=== PATIENT | male | born 1945 | race Caucasian/White ===

== ENCOUNTER → 2016-04-06 | Outpatient (CLI) | payer BC ==
[~2016-04-06] MED LIST: AMPH1TAB58 PO; ATV/1 PO; CALC500C70 PO; CRD4 PO; DTRSR/10 PO; GABA-113 PO; LEVO75TA PO; PERP1TAB PO; PERP1TAB11 PO; PRS5 PO; PXL20 PO; SIMV40TA2 PO; ZNTT/150 PO
[2016-04-06 17:23] LABS: HEMATOCRIT 35.5 % (42-52); MEAN CELL VOLUME 88.8 fL (80-100); MEAN CORPUSCULAR HEMOGLOBIN 30.3 pg (25-34); MEAN CORPUSCULAR HGB CONC 34.1 g/dl (32-36); MEAN PLATELET VOLUME 11.4 fL (7.4-10.4); PLATELET COUNT 175 K/uL (130-400); WHITE BLOOD COUNT 6.13 K/uL (4.8-10.8)
[2016-04-06 17:55] LABS: ALT/SGPT 21 U/L (12-78); AST/SGOT 15 U/L (15-37); BLOOD UREA NITROGEN 20 mg/dl (7-18); BUN/CREATININE RATIO 21.6 (10-20); CALCIUM 8.4 mg/dl (8.5-10.1); CARBON DIOXIDE 29 mmol/L (21-32); CHLORIDE 103 mmol/L (98-107); CREATININE 0.91 mg/dl (0.60-1.40); GLUCOSE 99 mg/dl (70-99); POTASSIUM 4.1 mmol/L (3.5-5.1); SODIUM 140 mmol/L (136-145)
[2016-04-06 18:06] LABS: ALB/GLOB RATIO 1.2 (0.9-2); ALKALINE PHOSPHATASE 45 U/L (45-117); CHOLESTEROL 127 mg/dl (0-200); CHOLESTEROL/HDL RATIO 2.1; HDL CHOLESTEROL 61 mg/dl; LDL CHOLESTEROL CALCULATED 51 mg/dl; PROSTATE SPECIFIC ANTIGEN 0.085 ng/ml (0.000-4.000); TRIGLYCERIDES 77 mg/dl (0-150); VERY LOW DENSITY LIPOPROT CALC 15 mg/dl
== END | disposition home or self-care (01) ==
LOC: C.LABBFT 13:35
PROVIDERS: ATTEND Internal Medicine
DX: E03.9 Hypothyroidism, unspecified (principal); I10 Essential (primary) hypertension; Z12.5 Encounter for screening for malignant neoplasm of prostate

== ENCOUNTER → 2016-09-23 | Outpatient (CLI) | payer BC ==
[2016-09-23 12:33] LABS: BASO % 0.2 %; BASO ABS # 0.01 K/uL (0-0.2); COMPLETE YES; IG% 0.2 %; LYMPH % 15.5 %; LYMPH ABS # 0.97 K/uL (1.2-3.4); MEAN CELL VOLUME 89.3 fL (80-100); MEAN CORPUSCULAR HGB CONC 34.7 g/dl (32-36); MEAN PLATELET VOLUME 10.3 fL (7.4-10.4); MONO % 14.9 %; NEUT % 68.2 %; PLATELET COUNT 196 K/uL (130-400); RED BLOOD COUNT 4.03 M/uL (4.7-6.1); WHITE BLOOD COUNT 6.26 K/uL (4.8-10.8)
[2016-09-23 12:52] LABS: ALT/SGPT 20 U/L (12-78); BLOOD UREA NITROGEN 18 mg/dl (7-18); BUN/CREATININE RATIO 21.9 (10-20); CARBON DIOXIDE 26 mmol/L (21-32); CHLORIDE 106 mmol/L (98-107); CHOLESTEROL 160 mg/dl (0-200); CREATININE 0.84 mg/dl (0.60-1.40); GLUCOSE 96 mg/dl (70-99); POTASSIUM 4.2 mmol/L (3.5-5.1); SODIUM 140 mmol/L (136-145); TRIGLYCERIDES 48 mg/dl (0-150); VERY LOW DENSITY LIPOPROT CALC 10 mg/dl
[2016-09-23 13:03] LABS: ALB/GLOB RATIO 1.1 (0.9-2); ALKALINE PHOSPHATASE 52 U/L (45-117); AST/SGOT 16 U/L (15-37); CHOLESTEROL/HDL RATIO 2.1; HDL CHOLESTEROL 75 mg/dl; LDL CHOLESTEROL CALCULATED 75 mg/dl; THYROID STIMULATING HORMONE 0.735 uIu/ml (0.300-4.500)
[2016-09-23 13:35] LABS: ESTIMATED AVERAGE GLUCOSE 105 mg/dl; HA1C FLAG Normal (Normal)
== END | disposition home or self-care (01) ==
LOC: C.LABBFT 11:00
PROVIDERS: ATTEND Internal Medicine
DX: E78.00 Pure hypercholesterolemia, unspecified (principal); E03.9 Hypothyroidism, unspecified; R73.01 Impaired fasting glucose; D72.819 Decreased white blood cell count, unspecified

== ENCOUNTER → 2017-01-08 | Outpatient (CLI) | payer BC ==
[~2017-01-08] MED LIST changes: +ASPCH81X PO; -ATV/1 PO; +CHOL100040; +FAMO20TA11 PO; +NYSTATIN SWISH; +OXYBUTYNIN CHLORIDE; -PERP1TAB11 PO; +PERP4TAB37 PO; -ZNTT/150 PO
--- NOTE | 2017-01-08 14:45 | DIAGNOSTIC IMAGING REPORT ---
LUMBAR SPINE WITHOUT CLINICAL HISTORY: 72 years-old Male presenting with LUMBAR RADICULOPATHY. TECHNIQUE: Multidetector CT of the lumbar spine was performed without the use of intravenous contrast. IV contrast: None. A dose lowering technique was used consistent with the principles of ALARA (as low as reasonably achievable). COMPARISON: None. CT DOSE (mGy.cm): The estimated cumulative dose is 626.20 mGy.cm. FINDINGS: Professor Of Art topogram: Partial visualization of 2-lead pacer to the right atrium and right ventricular apex. S-shaped scoliotic curvature of the thoracolumbar spine. Levocurvature of the lumbar spine centered at L2. Otherwise normal lumbar lordosis. Vertebral body heights and alignment otherwise maintained. Intervertebral disc height loss at multiple levels, somewhat asymmetrically given the presence of scoliotic curvature. Disc bulges with prominent osteophytosis noted at every level to varying degrees. This results in very degrees of effacement of the ventral thecal sac. Spinal stenosis is most severe at L2-3 and L3-4. Varying degrees of osseous neural foraminal narrowing. Degenerative changes further detailed below: L1-2: Severe right neural foraminal narrowing. Mild effacement of the ventral thecal sac. L2-3: Mild to moderate right neural foraminal narrowing. Circumferential effacement of the thecal sac secondary to disc bulge, ligamentum flavum thickening, and facet arthropathy. L3-4: Mild right neural foraminal narrowing. Disc bulge, facet arthropathy, and ligamentum flavum thickening result in significant circumferential effacement of the thecal sac. L4-5: Moderate left neural foraminal narrowing. Mild disc bulge, facet arthropathy, and ligamentum flavum thickening without significant effacement of the thecal sac. L5-S1: Moderate bilateral neural foraminal narrowing. Disc bulge and facet arthropathy without significant spinal canal narrowing. Paraspinal soft tissues within normal limits. Atherosclerosis noted. Osteopenia. IMPRESSION: 1. Multilevel degenerative change with varying degrees of spinal canal stenosis most severe at L2-3 and L3-4. Very degrees of neural foraminal narrowing detailed above. 2. Osteopenia. Electronically signed by: Vu Aguirre M.D. 01/08/2017 2:43 PM Dictated Date/Time: 01/08/2017 2:28 PM
== END | disposition home or self-care (01) ==
LOC: C.CTS 14:05
PROVIDERS: ATTEND Physician Assistant Medical
DX: M54.16 Radiculopathy, lumbar region (principal)

== ENCOUNTER → 2017-03-05 | Outpatient (CLI) | payer BC ==
[~2017-03-05] MED LIST changes: -AMPH1TAB58 PO; +MIRT30TA2 PO
[2017-03-05 12:39] LABS: BASO % 0.5 %; BASO ABS # 0.02 K/uL (0-0.2); EOS % 4.4 %; EOS ABS # 0.19 K/uL (0-0.5); HEMATOCRIT 39.6 % (42-52); HEMOGLOBIN 13.4 g/dL (14.0-18.0); IG# 0.01 K/uL (0.00-0.02); LYMPH % 20.7 %; LYMPH ABS # 0.89 K/uL (1.2-3.4); MEAN CELL VOLUME 90.6 fL (80-100); MEAN CORPUSCULAR HEMOGLOBIN 30.7 pg (25-34); MEAN CORPUSCULAR HGB CONC 33.8 g/dl (32-36); MEAN PLATELET VOLUME 10.5 fL (7.4-10.4); MONO % 11.2 %; MONO ABS # 0.48 K/uL (0.11-0.59); PLATELET COUNT 211 K/uL (130-400); RED CELL DISTRIBUTION WIDTH CV 13.9 % (11.5-14.5); RED CELL DISTRIBUTION WIDTH SD 45.8 fL (36.4-46.3); WHITE BLOOD COUNT 4.29 K/uL (4.8-10.8)
[2017-03-05 14:59] LABS: ALBUMIN 3.4 gm/dl (3.4-5.0); ALT/SGPT 20 U/L (12-78); AST/SGOT 14 U/L (15-37); BLOOD UREA NITROGEN 18 mg/dl (7-18); CALCIUM 8.6 mg/dl (8.5-10.1); CARBON DIOXIDE 32 mmol/L (21-32); CREATININE 0.81 mg/dl (0.60-1.40); GLUCOSE 99 mg/dl (70-99); POTASSIUM 4.1 mmol/L (3.5-5.1); SODIUM 139 mmol/L (136-145)
[2017-03-05 15:10] LABS: ALKALINE PHOSPHATASE 49 U/L (45-117); CHOLESTEROL 154 mg/dl (0-200); LDL CHOLESTEROL CALCULATED 73 mg/dl; TOTAL PROTEIN 6.9 gm/dl (6.4-8.2)
== END | disposition home or self-care (01) ==
LOC: C.LABBFT 10:04
PROVIDERS: ATTEND Internal Medicine
DX: D64.9 Anemia, unspecified (principal); E78.00 Pure hypercholesterolemia, unspecified; E03.9 Hypothyroidism, unspecified

== ENCOUNTER → 2017-04-19 | Outpatient (CLI) | payer BC | END | disposition home or self-care (01) | LOC: C.LABBFT 10:19 | PROVIDERS: ATTEND Internal Medicine | DX: E03.9 Hypothyroidism, unspecified (principal) ==

== ENCOUNTER → 2017-09-24 | Outpatient (CLI) | payer BC ==
[2017-09-24 17:46] LABS: HEMATOCRIT 38.2 % (42-52); HEMOGLOBIN 13.1 g/dL (14.0-18.0); MEAN CELL VOLUME 89.7 fL (80-100); MEAN CORPUSCULAR HEMOGLOBIN 30.8 pg (25-34); MEAN CORPUSCULAR HGB CONC 34.3 g/dl (32-36); MEAN PLATELET VOLUME 11.1 fL (7.4-10.4); PLATELET COUNT 203 K/uL (130-400); RED CELL DISTRIBUTION WIDTH CV 13.8 % (11.5-14.5); RED CELL DISTRIBUTION WIDTH SD 45.5 fL (36.4-46.3); WHITE BLOOD COUNT 5.77 K/uL (4.8-10.8)
[2017-09-24 18:08] LABS: ALBUMIN 3.4 gm/dl (3.4-5.0); ALKALINE PHOSPHATASE 55 U/L (45-117); ALT/SGPT 25 U/L (12-78); AST/SGOT 18 U/L (15-37); BLOOD UREA NITROGEN 15 mg/dl (7-18); CALCIUM 8.2 mg/dl (8.5-10.1); CARBON DIOXIDE 29 mmol/L (21-32); CHOLESTEROL 163 mg/dl (0-200); CREATININE 0.89 mg/dl (0.60-1.40); GLUCOSE 93 mg/dl (70-99); LDL CHOLESTEROL CALCULATED 66 mg/dl; POTASSIUM 4.2 mmol/L (3.5-5.1); SODIUM 138 mmol/L (136-145); TOTAL PROTEIN 6.7 gm/dl (6.4-8.2)
== END | disposition home or self-care (01) ==
LOC: C.LABBFT 14:57
PROVIDERS: ATTEND Physician Assistant Medical
DX: E78.00 Pure hypercholesterolemia, unspecified (principal); R97.20 Elevated prostate specific antigen [PSA]; I10 Essential (primary) hypertension; E03.9 Hypothyroidism, unspecified

== ENCOUNTER 2020-11-05 13:53 | Inpatient (IN) ==
--- NOTE | 2020-11-05 14:31 | Emergency Department Note ---
Impression & Plan Hypoxia, Aspiration into airway, Food impaction of esophagus ED Provider Note NAME: BEVERLY THACKER AGE: 75 SEX: M : 1945 ARRIVES VIA: Ambulance INFORMANT: Patient ED PROVIDER(S): Mo Clemente DO CHIEF COMPLAINT: choking HPI: Patient is a 75-year-old male who presents to the ER following eating a piece of pork chop at lunch. He started choking on it as he notes he took a big bite. He felt like he could not breathe. When EMS got there he was hypoxic at 83%. He was placed on 6 L nasal cannula. He did vomit a little bit. He notes he does not feel like it is stuck anymore but feels like his throat is sore. He denies any headache or change in vision. No chest pain or shortness of breath. No dysuria, urgency or frequency. No other exacerbating or remitting factors. ROS: See above HPI for pertinent positives & negatives. A total of 10 systems reviewed and were otherwise negative. PAST MEDICAL HISTORY:See Below PAST SURGICAL HISTORY:See Below FAMILY HISTORY:See Below SOCIAL HISTORY:See Below HOME MEDICATIONS:See Below ALLERGIES:See Below VITALS:See Below PHYSICAL EXAMINATION: GENERAL: Sitting up in bed, alert, chronically ill-appearing, disheveled, on nasal cannula talking in full sentences EYE EXAM: normal conjunctiva. OROPHARYNX: no exudate, no erythema, lips, buccal mucosa, and tongue normal and mucous membranes are moist NECK: supple, no nuchal rigidity, no adenopathy, non-tender LUNGS: Rhonchi bilaterally. Normal chest wall mechanics HEART: no murmurs, S1 normal and S2 normal ABDOMEN: abdomen soft, non-tender, normo-active bowel sounds, no masses, no rebound or guarding. UPPER EXTREMITIES: upper extremities are grossly normal. LOWER EXTREMITIES: No pitting edema. NEURO EXAM: Normal sensorium, cranial nerves II-XII grossly intact, normal speech, no gross weakness of arms, no gross weakness of legs. MEDICAL DECISION MAKING: Patient is a 75-year-old male who presents the ER after choking on a pork chop. IV was established blood work was obtained. He is hypoxic and was placed on 3 L nasal cannula. When he was found by EMS he was hypoxic at 83%. Labs show no significant leukocytosis and mild anemia at 12.6. BMP along with LFTs lipase and troponin were negative. Covid was negative. CT of the chest was performed and shows a food bolus although he says he does feel better. He also shows pneumonitis. He was given IV Rocephin. He was updated bedside. Discussed with Dr. Bustos who recommended discussing with Dr. Herring who was on-call for Dr. Bustos. Dr. Herring agreed to take the patient to the OR. Discussed with Dr. Hummel and Drew from the hospital service for admission due to the aspiration pneumonitis and hypoxia as he is remained on 4 L nasal cannula while in the ER. Patient was updated bedside. Triage Nursing notes reviewed. Limited review of prior medical records performed Vital Signs: reviewed and remarkable for no significant abnormalities Differential diagnosis: Differential diagnoses includes but is not limited to pneumonia, bronchitis, COPD/Asthma exacerbation, pneumothorax, pulmonary embolism, congestive heart failure, acute coronary syndrome ER treatment provided: See below Diagnostics interpreted by me: ECG: Atrial paced rate of 77 Normal axis No PVCs QTC 423 Cardiac Monitoring: An order was placed for continuous cardiac monitoring. The monitor shows a rate of 72 with sinus rhythm. Laboratory studies: As stated above and show below. Imaging studies: CTs of the chest and neck as discussed above Consultation(s): D/w GI who will take the patient to the OR for an endoscopy Discussed with the hospitalist for further admission Procedures: none Critical Care: I have personally spent 35 minutes of critical care time in the direct management of this patient. This includes bedside care, interpretation of diagnostic studies, and testing, discussion with consultants, patient, and family members, and other required patient management activities. This 35 minutes is in excess of all separately billable procedures. Past Med/Surg History Medical History Anemia ? CURRENT STATUS Anxiety Aortic aneurysm USED TO MONITOR-NOT CURRENTLY Atrial fibrillation no blood thinners---follows with Dr. Bonilla Chronic back pain CVA (cerebral vascular accident) BRAIN BLEED-2006?-affected balance, causing dizziness, poor balance, light headed---no neurologist now was following with Dr. Chavez-AND DISCHARGED-F/U PCP SPEECH IS SLOW, COMMUNICATION EFFECTIVE ; PT REPORTS SPEECH SLOW SINCE AFTER BRAIN BLEED - SPEAK LOUD AND SLOW Depression GERD (gastroesophageal reflux disease) Gout HX History of colon polyps BENIGN Hyperlipidemia Hypertension was on meds, but was taken off Hypothyroidism Spinal stenosis Surgical History History of bilateral carpal tunnel release History of colonoscopy History of elbow surgery right History of esophagogastroduodenoscopy (EGD) History of left shoulder replacement History of tooth extraction History of total left knee replacement (TKR) History of total right knee replacement (TKR) Pacemaker Biotronik 09/2015 @ [facility] - PLACED "TO KEEP ME FROM FALLING" PT REPORTS HAS HELPED Family History Brother Prostate cancer Father Myocardial infarction Family/Other Cardiac disorder Stroke Hypertension Sister Parkinson disease Other No family history of adverse response to anesthesia Denies family history of Ovarian cancer Breast cancer Colorectal cancer Social History Smoking Status: Never smoker Second Hand Exposure: No; Hx Alcohol Use: No Hx Substance Use: No Preferred Language: Sinhala Communication Ability: Effective Visual Impairment: No Limitations Hearing Ability: Normal Studio Artist Required: No Beliefs That Will Affect Care: None marital status: / Current Living Situation: Alone Current Living Situation Comment: [facility] current occupational status: retired Feels Safe at Home: Yes Dental Care, Regularly: Yes Physical Activity Frequency: Daily Seatbelt Use: always Assistive Devices: Cane Allergies Allergies Allergy/AdvReac Type Severity Reaction Status Date / Time codeine AdvReac Unknown MENTAL Verified 11/05/20 16:35 INCOHERENCE warfarin AdvReac Unknown INTERFERES Verified 11/05/20 16:35 WITH OTHER MEDS METAL Allergy Unknown SEE NOTES Uncoded 11/05/20 16:35 BELOW Opioid Analgesics AdvReac Unknown mental Uncoded 11/05/20 16:35 incoherence Home Meds Home Medications Medication Instructions Recorded Confirmed calcium carbonate 500 mg (1,250 1 tab PO QPM tab 10/15/18 11/05/20 mg)-vitamin D3 125 unit tablet cholecalciferol (vitamin D3) 25 1,000 units PO QAM cap 10/15/18 11/05/20 mcg (1,000 unit) capsule aspirin 81 mg tablet,delayed 81 mg PO QAM 10/28/18 11/05/20 release (Aspirin Low Dose) vit C 250 mg-vit E 90 mg-zinc 40 1 tab PO BID 10/28/18 11/05/20 mg-copper 1 [id number] capsule (PreserVision AREDS-2) perphenazine 4 mg tablet 8 mg PO QPM tab 09/27/19 11/05/20 famotidine 20 mg tablet 20 mg PO QAM #180 tab 01/03/20 11/05/20 levothyroxine 75 mcg tablet 75 mcg PO QAM 06/05/20 11/05/20 perphenazine 4 mg tablet 4 mg PO QAM 06/05/20 11/05/20 escitalopram oxalate 20 mg tablet 20 mg PO DAILY 11/05/20 11/05/20 Previous Rx's Medication Instructions Recorded simvastatin 40 mg tablet 40 mg PO HS #90 tab 01/15/20 finasteride 5 mg tablet 5 mg PO HS #90 tab 01/24/20 doxazosin 8 mg tablet 4 mg PO QAM #45 tab 03/18/20 oxybutynin chloride 5 mg tablet 5 mg PO BID #180 tab 08/27/20 Results & Data (ED) Vital Signs Vital Signs - 24 hr 11/05/20 13:46 11/05/20 14:25 11/05/20 14:36 Temperature 36.6 C Temperature Source Oral Pulse Rate 73 75 80 Pulse Rate [Apical] 85 Pulse Rate from SpO2 Sensor 81 Pulse Rhythm Regular Regular Pulse Rhythm [Apical] Regular Pulse Strength Normal Pulse Strength [Apical] Normal Respiratory Rate 20 20 19 Respiratory Effort / Characteristics Spontaneous Respiratory Depth Normal Respiratory Pattern Regular Blood Pressure 152/84 H 142/79 H Blood Pressure [Right Arm] 152/84 H Blood Pressure Mean 106 100 Blood Pressure Mean [Right Arm] 106 Blood Pressure Position Semi-fowlers Blood Pressure Position [Right Arm] Semi-fowlers Pulse Oximetry 94 93 91 Oxygen Delivery Method Nasal Cannula Nasal Cannula Nasal Cannula Oxygen Flow Rate 4 4 4 Sepsis Recent Fever Within 48 Hours No Sepsis New/Unexplained Change in Mental Status No Sepsis Action Taken by Nursing No Action Required Oxygen Flow Rate - Titration 4 Pulse Oximetry Post Tiitration 94 Laboratory Data Result diagrams: 11/05/20 14:43 11/05/20 14:43 Lab Results 11/05/20 11/05/20 11/05/20 Range/Units 14:43 14:43 14:43 WBC 5.29 (4.8-10.8) K/uL RBC 4.16 L (4.7-6.1) M/uL Hgb 12.6 L (14.0-18.0) g/dL POC Hgb (14.0-18.0) g/dl Hct 37.8 L (42-52) % POC Hct (42-52) % MCV 90.9 (80-100) fL MCH 30.3 (25-34) pg MCHC 33.3 (32-36) g/dL RDW Std Deviation 45.6 (36.4-46.3) fL RDW Coeff of Esteban 13.8 (11.5-14.5) % Plt Count 217 (130-400) K/uL MPV 9.9 (7.4-10.4) fL Immature Gran % (Auto) 0.2 % Neut % (Auto) 71.1 % Lymph % (Auto) 14.7 % [place] % (Auto) 11.9 % Eos % (Auto) 1.9 % Baso % (Auto) 0.2 % Neut # (Auto) 3.76 (1.4-6.5) K/uL Lymph # (Auto) 0.78 L (1.2-3.4) K/uL [place] # (Auto) 0.63 H (0.11-0.59) K/uL Eos # (Auto) 0.10 (0-0.5) K/uL Baso # (Auto) 0.01 (0-0.2) K/uL Immature Gran # (Auto) 0.01 (0.00-0.02) K/uL APTT 23.1 (21.0-31.0) Seconds PTT Ratio 0.9 POC Sodium (135-144) mmol/L Sodium 140 (136-145) mmol/L POC Potassium (3.3-5.0) mmol/L Potassium 4.0 (3.5-5.1) mmol/L POC Chloride (101-112) mmol/L Chloride 105 (98-107) mmol/L Carbon Dioxide 28 (21-32) mmol/L POC Total CO2 (24-31) mmol/L Anion Gap 7.0 (3-11) POC Anion Gap (16-25) mmol/L POC BUN (7-18) mg/dl BUN 16 (7-18) mg/dl Creatinine 0.81 (0.6-1.4) mg/dl POC Creatinine (0.6-1.3) mg/dl Est Cr Clr Drug Dosing 77.0 ml/min Est GFR ( Amer) 100.1 ml/min Est GFR (Non-Af Amer) 86.3 ml/min BUN/Creatinine Ratio 19.7 (10-20) Glucose 96 (70-99) mg/dl POC Glucose (other) (70-99) mg/dl Calcium 8.5 (8.5-10.1) mg/dl POC Ioniz Calcium Светлана (1.12-1.32) mmol/l Total Bilirubin 0.4 (0.2-1) mg/dl AST 15 (15-37) U/L ALT 20 (12-78) U/L Alkaline Phosphatase 53 (45-117) U/L Troponin I < 0.015 (0-0.045) ng/ml Total Protein 6.5 (6.4-8.2) gm/dl Albumin 3.3 L (3.4-5.0) gm/dl Globulin 3.2 (2.5-4.0) gm/dl Albumin/Globulin Ratio 1.0 (0.9-2) Lipase 132 (73-393) U/L COVID-19 Eval Order SARS-CoV-2 (PCR) (Negative) 11/05/20 11/05/20 11/05/20 Range/Units 14:55 16:54 16:54 WBC (4.8-10.8) K/uL RBC (4.7-6.1) M/uL Hgb (14.0-18.0) g/dL POC Hgb 12.2 L (14.0-18.0) g/dl Hct (42-52) % POC Hct 36 L (42-52) % MCV (80-100) fL MCH (25-34) pg MCHC (32-36) g/dL RDW Std Deviation (36.4-46.3) fL RDW Coeff of Esteban (11.5-14.5) % Plt Count (130-400) K/uL MPV (7.4-10.4) fL Immature Gran % (Auto) % Neut % (Auto) % Lymph % (Auto) % [place] % (Auto) % Eos % (Auto) % Baso % (Auto) % Neut # (Auto) (1.4-6.5) K/uL Lymph # (Auto) (1.2-3.4) K/uL [place] # (Auto) (0.11-0.59) K/uL Eos # (Auto) (0-0.5) K/uL Baso # (Auto) (0-0.2) K/uL Immature Gran # (Auto) (0.00-0.02) K/uL APTT (21.0-31.0) Seconds PTT Ratio POC Sodium 139 (135-144) mmol/L Sodium (136-145) mmol/L POC Potassium 4.0 (3.3-5.0) mmol/L Potassium (3.5-5.1) mmol/L POC Chloride 100 L (101-112) mmol/L Chloride (98-107) mmol/L Carbon Dioxide (21-32) mmol/L POC Total CO2 27 (24-31) mmol/L Anion Gap (3-11) POC Anion Gap 17.0 (16-25) mmol/L POC BUN 16 (7-18) mg/dl BUN (7-18) mg/dl Creatinine (0.6-1.4) mg/dl POC Creatinine 0.7 (0.6-1.3) mg/dl Est Cr Clr Drug Dosing ml/min Est GFR ( Amer) ml/min Est GFR (Non-Af Amer) ml/min BUN/Creatinine Ratio (10-20) Glucose (70-99) mg/dl POC Glucose (other) 97 (70-99) mg/dl Calcium (8.5-10.1) mg/dl POC Ioniz Calcium Светлана 1.16 (1.12-1.32) mmol/l Total Bilirubin (0.2-1) mg/dl AST (15-37) U/L ALT (12-78) U/L Alkaline Phosphatase (45-117) U/L Troponin I (0-0.045) ng/ml Total Protein (6.4-8.2) gm/dl Albumin (3.4-5.0) gm/dl Globulin (2.5-4.0) gm/dl Albumin/Globulin Ratio (0.9-2) Lipase (73-393) U/L COVID-19 Eval Order Covid19 at [facility] SARS-CoV-2 (PCR) NEGATIVE (Negative) Administered Medications Discontinued Medications Ceftriaxone Sodium (Rocephin) 1,000 mg in 50 mls @ 100 mls/hr IV NOW STA Stop: 11/05/20 16:57 Last Admin: 11/05/20 17:41 Dose: 100 mls/hr Documented by: [id number] Ioversol (Optiray 320 100ml) 94 ml IV ONCE ONE Stop: 11/05/20 15:44 Last Admin: 11/05/20 15:43 Dose: 94 ml Documented by: [id number] Imaging Data Radiologist's Impression: Chest CT 11/05/20 14:[address] WITH CONTRAST CT DOSE: 1113.38 mGy.cm HISTORY: Acute hypoxia with possible foreign body ingestion chocked on porrk currently hypoxic TECHNIQUE: Multiaxial CT images of the chest were performed following the IV administration of 94 cc of Optiray. A dose lowering technique was utilized adhering to the principles of ALARA. COMPARISON: CT soft tissue neck of same day, chest CT 05/27/2018 FINDINGS: Unremarkable thyroid. No adenopathy. The heart is upper limits of normal in size with trace pericardial effusion. Left subclavian pacer. Moderate coronary artery calcifications. Unchanged fusiform aneurysmal dilation of the ascending thoracic aorta, 4.4 x 4.4 cm. Mild to moderate atherosclerotic plaque without dissection. Unremarkable ulnar artery. Moderate sized left Bochdalek hernia. No pneumothorax or pleural effusion. Right greater than left basal lower lobe and right middle lobe groundglass densities. Mild right hemidiaphragmatic elevation. Calcified granuloma of the basal left lower lobe. The central airways are patent. Mild wall thickening of the distal esophagus. Debris filled upper thoracic esophagus. There are a few scattered hepatic cysts redemonstrated. Bilateral gynecomastia. Left shoulder arthroplasty. Degenerative changes of the right shoulder and spine with right shoulder joint effusion and intra-articular loose bodies. IMPRESSION: 1. Debris-filled upper thoracic esophagus suggestive of a food bolus. 2. Right greater than left bibasilar groundglass densities are compatible with a nonspecific infectious or inflammatory pneumonitis. Correlation can be made with a follow-up video swallow study to exclude aspiration pneumonitis. 3. Unchanged fusiform dilation of the ascending thoracic aorta, 4.4 cm. ACT 112: Negative or not required by law. Electronically signed by: Tye Banegas M.D. 11/05/2020 4:06 PM Chest X-Ray 11/05/20 14:25 SINGLE VIEW CHEST CLINICAL HISTORY: Atypical chest pain. FINDINGS: 2 AP, portable, upright chest radiographs are compared to study dated 10/08/2015 and correlated with chest CT dated 05/27/2018. A 2-lead cardiac pacemaker is in place and partially obscures the left upper chest. The heart is enlarged. The pulmonary vasculature is noncongested. There are scattered calcified granulomas. Scarring/atelectasis is seen at the lung bases. No airspace consolidation or large pleural effusion is identified. No pneumothorax is seen. The skeletal structures are osteopenic. There are healed right-sided rib fractures. A left shoulder arthroplasty is in place. Advanced arthritic change is seen in the right shoulder. IMPRESSION: 1. Cardiomegaly and cardiac pacemaker. There is no radiographic evidence of congestive failure. 2. No airspace consolidation or large pleural effusion is identified. ACT 112: Negative or not required by law. Electronically signed by: Lee Camacho M.D. 11/05/2020 3:[address] 11/05/20 14:25 CT soft tissue neck w con CT DOSE: CLINICAL HISTORY: Choked on pork TECHNIQUE: Helical images were acquired during intravenous administration of 94 cc of Optiray. A dose lowering technique was utilized adhering to the princip les of NAHOMI. COMPARISON STUDY: None. FINDINGS: The visualized portions of the lung apices are unremarkable. No thyroid masses are visualized. No salivary gland masses are visualized. There are no pathologically enlarged cervical lymph nodes. No necrotic nodes are evident. Isoattenuating structure with internal gas collection is seen within proximal portion of esophagus, measuring approximately 1.9 x 2.1 cm in axial image most likely representing ingested material, mass is less likely. There is no evidence of airway compromise. No mucosal space masses are visualized. IMPRESSION: Focal area of isoattenuating collection within proximal aspect of esophagus most likely representing ingested material. Neoplastic process is less likely. Further evaluation with direct inspection is suggested. ACT 112: Negative or not required by law. The above report was generated using voice recognition software. It may contain grammatical, syntax or spelling errors. Electronically signed by: Bri Cotter DO 11/05/2020 4:18 PM Discharge Plan Visit Data Chief Complaint: Choking ED Provider: Mo Clemente Discharge Problem: Hypoxia, Aspiration into airway, Food impaction of esophagus Forms Stand Alone Forms: [place] [place] [employer] Prescriptions Prescriptions: No Action simvastatin 40 mg tablet 40 mg PO HS Qty: 90 RF: 3 finasteride 5 mg tablet 5 mg PO HS Qty: 90 RF: 3 doxazosin 8 mg tablet 4 mg PO QAM Qty: 45 RF: 3 oxybutynin chloride 5 mg tablet 5 mg PO BID Qty: 180 RF: 3 calcium carbonate-vitamin D3 500 mg(1,250mg) -125 unit tablet 1 tab PO QPM RF: 0 cholecalciferol (vitamin D3) 1,000 unit capsule 1,000 units PO QAM RF: 0 famotidine 20 mg tablet 20 mg PO QAM Qty: 180 RF: 0 perphenazine 4 mg tablet 8 mg PO QPM RF: 0 aspirin [Aspirin Low Dose] 81 mg Tablet,Delayed Release (Dr/Ec) 81 mg PO QAM RF: 0 PreserVision AREDS-2 [id number] Capsule 1 tab PO BID RF: 0 perphenazine 4 mg Tablet 4 mg PO QAM RF: 0 levothyroxine 75 mcg tablet 75 mcg PO QAM RF: 0 escitalopram oxalate 20 mg tablet 20 mg PO DAILY RF: 0 Referrals Referrals: Timo Chopra III, MD [Primary Care Provider] - Discharge Problem: Aspiration into airway Qualifiers: Encounter type: initial encounter Qualified Code(s): T17.908A - Unspecified foreign body in respiratory tract, part unspecified causing other injury, initial encounter Food impaction of esophagus Qualifiers: Encounter type: initial encounter Qualified Code(s): T18.128A - Food in esophagus causing other injury, initial encounter
[2020-11-05 14:55] LABS: Basophils # (auto) 0.01 K/uL (0-0.2); Basophils % (auto) 0.2 %; Eosinophils % (auto) 1.9 %; Hematocrit (blood only) 37.8 % (42-52); Hemoglobin 12.6 g/dL (14.0-18.0); Immature Granulocytes # (auto) 0.01 K/uL (0.00-0.02); Immature Granulocytes % (auto) 0.2 %; Lymphocytes # (auto) 0.78 K/uL (1.2-3.4); Lymphocytes % (auto) 14.7 %; Mean Corpuscular Hemoglobin 30.3 pg (25-34); Mean Corpuscular Hgb Conc 33.3 g/dL (32-36); Mean Corpuscular Volume 90.9 fL (80-100); Mean Platelet Volume 9.9 fL (7.4-10.4); Monocytes # (auto) 0.63 K/uL (0.11-0.59); Monocytes % (auto) 11.9 %; Neutrophils # (auto) 3.76 K/uL (1.4-6.5); Neutrophils % (auto) 71.1 %; Platelet Count 217 K/uL (130-400); RDW Coefficient of Variation 13.8 % (11.5-14.5); RDW Standard Deviation 45.6 fL (36.4-46.3); Red Blood Count 4.16 M/uL (4.7-6.1); White Blood Count 5.29 K/uL (4.8-10.8)
[2020-11-05 15:02] LABS: Partial Thromboplastin Ratio 0.9; Partial Thromboplastin Time 23.1 Seconds (21.0-31.0)
[2020-11-05 15:10] LABS: iSTAT Creatinine 0.7 mg/dl (0.6-1.3); iSTAT Hemoglobin 12.2 g/dl (14.0-18.0); iSTAT Ionized Calcium 1.16 mmol/l (1.12-1.32)
[2020-11-05 15:16] LABS: Alanine Aminotransferase 20 U/L (12-78); Albumin Level 3.3 gm/dl (3.4-5.0); Aspartate Aminotransferase 15 U/L (15-37); BUN Creatinine Ratio 19.7 (10-20); Blood Urea Nitrogen 16 mg/dl (7-18); Calcium 8.5 mg/dl (8.5-10.1); Carbon Dioxide 28 mmol/L (21-32); Chloride 105 mmol/L (98-107); Est GFR (African American) 100.1 ml/min; Est GFR (Non-African American) 86.3 ml/min; Glucose 96 mg/dl (70-99); Lipase 132 U/L (73-393); Sodium 140 mmol/L (136-145)
[2020-11-05 15:21] LABS: Alkaline Phosphatase 53 U/L (45-117); Bilirubin,Total 0.4 mg/dl (0.2-1); Globulin 3.2 gm/dl (2.5-4.0); Total Protein 6.5 gm/dl (6.4-8.2); Troponin I < 0.015 ng/ml (0-0.045)
--- NOTE | 2020-11-05 15:38 | XRay Report ---
SINGLE VIEW CHEST CLINICAL HISTORY: Atypical chest pain. FINDINGS: 2 AP, portable, upright chest radiographs are compared to study dated 10/08/2015 and correlat ed with chest CT dated 05/27/2018. A 2-lead cardiac pacemaker is in place and partially obscures the l eft upper chest. The heart is enlarged. The pulmonary vasculature is noncongested. There are scattere d calcified granulomas. Scarring/atelectasis is seen at the lung bases. No airspace consolidation or large pleural effusion is identified. No pneumothorax is seen. The skeletal structures are osteopenic . There are healed right-sided rib fractures. A left shoulder arthroplasty is in place. Advanced arth ritic change is seen in the right shoulder. IMPRESSION: 1. Cardiomegaly and cardiac pacemaker. There is no radiographic evidence of congestive failure. 2. No airspace consolidation or large pleural effusion is identified. ACT 112: Negative or not required by law. Electronically signed by: Lee Camacho M.D. 11/05/2020 3:36 PM
[2020-11-05] MEDS ORDERED: OPTIRAY 320 100ml IV ONE (15:43)
--- NOTE | 2020-11-05 16:08 | CT Scan Report ---
CHEST CT WITH CONTRAST CT DOSE: 1113.38 mGy.cm HISTORY: Acute hypoxia with possible foreign body ingestion chocked on porrk currently hypoxic TECHNIQUE: Multiaxial CT images of the chest were performed following the IV administration of 94 cc of Optiray. A dose lowering technique was utilized adhering to the principles of ALARA. COMPARISON: CT soft tissue neck of same day, chest CT 05/27/2018 FINDINGS: Unremarkable thyroid. No adenopathy. The heart is upper limits of normal in size with trace pericardial effusion. Left subclavian pacer. Moderate coronary artery calcifications. Unchanged fusi form aneurysmal dilation of the ascending thoracic aorta, 4.4 x 4.4 cm. Mild to moderate atherosclero tic plaque without dissection. Unremarkable ulnar artery. Moderate sized left Bochdalek hernia. No pneumothorax or pleural effusion. Right greater than left ba dani lower lobe and right middle lobe groundglass densities. Mild right hemidiaphragmatic elevation. C alcified granuloma of the basal left lower lobe. The central airways are patent. Mild wall thickening of the distal esophagus. Debris filled upper thoracic esophagus. There are a few scattered hepatic cysts redemonstrated. Bilateral gynecomastia. Left shoulder arthroplasty. Degenera tive changes of the right shoulder and spine with right shoulder joint effusion and intra-articular l oose bodies. IMPRESSION: 1. Debris-filled upper thoracic esophagus suggestive of a food bolus. 2. Right greater than left bibasilar groundglass densities are compatible with a nonspecific infectio us or inflammatory pneumonitis. Correlation can be made with a follow-up video swallow study to exclu de aspiration pneumonitis. 3. Unchanged fusiform dilation of the ascending thoracic aorta, 4.4 cm. ACT 112: Negative or not required by law. Electronically signed by: Tye Banegas M.D. 11/05/2020 4:06 PM
--- NOTE | 2020-11-05 16:20 | CT Scan Report ---
CT soft tissue neck w con CT DOSE: CLINICAL HISTORY: Choked on pork TECHNIQUE: Helical images were acquired during intravenous administration of 94 cc of Optiray. A dos e lowering technique was utilized adhering to the principles of ALARA. COMPARISON STUDY: None. FINDINGS: The visualized portions of the lung apices are unremarkable. No thyroid masses are visualized. No salivary gland masses are visualized. There are no pathologically enlarged cervical lymph nodes. No necrotic nodes are evident. Isoattenuating structure with internal gas collection is seen within proximal portion of esophagus, m easuring approximately 1.9 x 2.1 cm in axial image most likely representing ingested material, mass i s less likely. There is no evidence of airway compromise. No mucosal space masses are visualized. IMPRESSION: Focal area of isoattenuating collection within proximal aspect of esophagus most likely representing ingested material. Neoplastic process is less likely. Further evaluation with direct inspection is jacobs ggested. ACT 112: Negative or not required by law. The above report was generated using voice recognition software. It may contain grammatical, syntax o r spelling errors. Electronically signed by: Bri Cotter DO 11/05/2020 4:18 PM
[2020-11-05] MEDS ORDERED: cefTRIAXone SODIUM 1,000 MG/50 ML BAG IV STA (16:28)
--- NOTE | 2020-11-05 16:55 | History & Physical Report ---
Date of Service November 05, 2020 Assessment & Plan (1) Aspiration into airway: Plan: GI consulted- appreciate assistance - To OR for EGD - TO PCU following procedure - Pulmonary toileting with nebs scheduled q6 and flutter valve - received 1gm Rocephin in EMD- defer to rounding team for continuation - follow labs and oxygenation status in the morning (2) SSS (sick sinus syndrome): Plan: With pacemaker for symptomatic bradycardia - reportedly also had history of paroxysmal atrial arrhythmias - Dual chamber 10/29/15 - DDDR low rate 70, upper rate 120 - evaluated in June (3) Anemia: Plan: chronically mild anemia - conlonscopy up to date - follows with PCP with routine labs (4) Hypercholesteremia: Plan: Continue simvastatin 40mg daily (5) Hypothyroidism: Plan: Continue synthroid 75mcg PO daily (6) Aortic aneurysm: Plan: Stable non-dedicated study today measures it at 4.4cm- previously noted at 4.5 cm 2013 - continue BP control and statin - he has declined routine following of this per PCP notes (7) Hypertension: Plan: Goal would be ideal <130, likely not on agent secondary to dizziness and low HR - treat if acutely rises while in house, otherwise continue to follow with PCP (8) Disorder of urinary system, unspecified: Plan: has LUTS but no urology following - urgency and frequency noted, feels stream is adequate - continue doxazosin, oxybutynin, finasteride History of Present Illness Chief Complaint: choking Primary Care Provider: Timo Chopra MD 75 YOM resident of the [facility], with a past medical history of: Anemia, HLD, Hypothyroidism, aortic aneurysm4.5 cm(last visualized 2013), HTN, d ementia, pacemaker secondary to symptomatic bradycardia, hemorrhagic CVA. Patient came to the EMD today via EMS following choking on a pork chop he was having for lunch. The patient feels that he took to big of a bite and it was dry, but he was able to get it up with vomiting. He was noted to be hypoxic on arrival of EMS and remains on 2-3LNC for SPO2 of 98% as of current. In the EMD the patient had a CT scan of the neck and chest performed as well as CXR. CT of the chest reveals debris filled upper thoracic esophagus consistent with food bolus and post aspiration pneumonitis bi-basilar but Rt>LT. GI consulted while in the EMD for food bolus, plan is to take him to the OR for EGD support. Patient will be admitted following this procedure as he is hypoxic off oxygen and will continue treatment for aspiration pneumonitis. His routine laboratory work is normal with exception of mild anemia of 12.6. Patient states he otherwise feels well. Allergies Allergy/AdvReac Type Severity Reaction Status Date / Time codeine AdvReac Mild MENTAL Verified 11/05/20 18:56 INCOHERENCE hydrocodone AdvReac Mild CONFUSION,I Verified 11/05/20 18:56 NCOHERENCE warfarin AdvReac Mild INTERFERES Verified 11/05/20 18:56 WITH OTHER MEDS oxycodone AdvReac CONFUSION,I Verified 11/05/20 18:56 NCOHERENCE Home Medications Medication Instructions Recorded Confirmed Type calcium carbonate 500 mg (1,250 1 tab PO QPM tab 10/15/18 11/05/20 History mg)-vitamin D3 125 unit tablet cholecalciferol (vitamin D3) 25 1,000 units PO QAM cap 10/15/18 11/05/20 History mcg (1,000 unit) capsule aspirin 81 mg tablet,delayed 81 mg PO QAM 10/28/18 11/05/20 History release (Aspirin Low Dose) vit C 250 mg-vit E 90 mg-zinc 40 1 tab PO BID 10/28/18 11/05/20 History mg-copper 1 [id number] capsule (PreserVision AREDS-2) perphenazine 4 mg tablet 8 mg PO QPM tab 09/27/19 11/05/20 History famotidine 20 mg tablet 20 mg PO QAM #180 tab 01/03/20 11/05/20 History simvastatin 40 mg tablet 40 mg PO HS #90 tab 01/15/20 11/05/20 Rx finasteride 5 mg tablet 5 mg PO HS #90 tab 01/24/20 11/05/20 Rx doxazosin 8 mg tablet 4 mg PO QAM #45 tab 03/18/20 11/05/20 Rx levothyroxine 75 mcg tablet 75 mcg PO QAM 06/05/20 11/05/20 History perphenazine 4 mg tablet 4 mg PO QAM 06/05/20 11/05/20 History oxybutynin chloride 5 mg tablet 5 mg PO BID #180 tab 08/27/20 11/05/20 Rx escitalopram oxalate 20 mg tablet 20 mg PO DAILY 11/05/20 11/05/20 History Past Med/Surg History Medical History Anemia ? CURRENT STATUS Anxiety Aortic aneurysm USED TO MONITOR-NOT CURRENTLY Atrial fibrillation no blood thinners---follows with Dr. Bonilla Chronic back pain CVA (cerebral vascular accident) BRAIN BLEED-2006?-affected balance, causing dizziness, poor balance, light headed---no neurologist now was following with Dr. Chavez-AND DISCHARGED-F/U PCP SPEECH IS SLOW, COMMUNICATION EFFECTIVE ; PT REPORTS SPEECH SLOW SINCE AFTER BRAIN BLEED - SPEAK LOUD AND SLOW Depression GERD (gastroesophageal reflux disease) Gout HX History of colon polyps BENIGN Hyperlipidemia Hypertension was on meds, but was taken off Hypothyroidism Spinal stenosis Surgical History History of bilateral carpal tunnel release History of colonoscopy History of elbow surgery right History of esophagogastroduodenoscopy (EGD) History of left shoulder replacement History of tooth extraction History of total left knee replacement (TKR) History of total right knee replacement (TKR) Pacemaker Biotronik 09/2015 @ [facility] - PLACED "TO KEEP ME FROM FALLING" PT REPORTS HAS HELPED Family History Brother Prostate cancer Father Myocardial infarction Family/Other Cardiac disorder Stroke Hypertension Sister Parkinson disease Other No family history of adverse response to anesthesia Denies family history of Ovarian cancer Breast cancer Colorectal cancer Social History Smoking Status: Never smoker Second Hand Exposure: No; Hx Alcohol Use: No Hx Substance Use: No Preferred Language: Lithuanian Communication Ability: Effective Visual Impairment: No Limitations Hearing Ability: Normal Custom 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 Beliefs That Will Affect Care: None marital status: / Current Living Situation: Alone Current Living Situation Comment: [facility] [facility] current occupational status: retired Feels Safe at Home: Yes Dental Care, Regularly: Yes Physical Activity Frequency: Daily Seatbelt Use: always Assistive Devices: Cane Review of Systems Review of Systems: REVIEW OF SYSTEMS: Constitutional: No fever, sweats or chills Eyes: No diplopia, no worsening or blurred vision ENT: normal hearing, no trouble swallowing Respiratory: No cough, sputum, dyspnea at rest or on exertion Cardiovascular: No chest pain, tightness or palpitations Abdomen: (+) as per HPI following choking eppisode, NO pain, nausea, vomiting, diarrhea or constipation Musculoskeletal: (+) No joint pain, calf pain, swelling Neurologic: (+) weakness, walks with cane NO numbness/tingling Psychiatric: No anxiety or depression Skin: No rash or itch Physical Exam Physical Exam: PHYSICAL EXAM: General: awake, alert, no apparent distress Head: Normocephalic, atraumatic ENT: PERRL, EOMI, no pharyngeal exudate, mucous membranes moist, throat is sore, no stridor Neuro: AAO x 3, speech clear and appropriate, strength intact bilaterally 5/5, sensation intact and equal all extremities and dermatomes, no pronator drift Chest: equal rise and fall of the chest, no accessory muscle use, no heaves or thrills, scattered rhonchi bilaterally with inspiratory wheeze, on 2lNC, Cardiac: Regular rate and rhythm, telemetry reviewed-atrial paced, skin warm dry, cap refill <3 seconds, peripheral pulses +2 no JVD, no murmur, no edema GI: NABS x 4 quadrants, soft, nontender to palpation, no rebound, guarding or tenderness : Spontaneously voiding, no pain, no CVA tenderness, Extremities: Normal inspection, no peripheral edema or erythema, calfs nontender to palpation Psych: Normal mood and affect Skin: no rash or erythema Results & Data Results & Data ([facility]) Vital Signs (Past 12 Hours) Vital Signs Temp Pulse Pulse Resp BP BP Pulse Ox 11/05/20 14:25 75 20 93 11/05/20 13:46 36.6 C 73 85 20 152/84 H 152/84 H 94 Laboratory Results Abnormal Labs 11/05/20 11/05/20 11/05/20 14:43 14:43 14:55 RBC 4.16 L Hgb 12.6 L POC Hgb 12.2 L Hct 37.8 L POC Hct 36 L Lymph # (Auto) 0.78 L [place] # (Auto) 0.63 H POC Chloride 100 L Albumin 3.3 L Diagnostic Findings Chest CT 11/05/20 14:[address] WITH CONTRAST CT DOSE: 1113.38 mGy.cm HISTORY: Acute hypoxia with possible foreign body ingestion chocked on porrk currently hypoxic TECHNIQUE: Multiaxial CT images of the chest were performed following the IV administration of 94 cc of Optiray. A dose lowering technique was utilized adhering to the principles of ALARA. COMPARISON: CT soft tissue neck of same day, chest CT 05/27/2018 FINDINGS: Unremarkable thyroid. No adenopathy. The heart is upper limits of normal in size with trace pericardial effusion. Left subclavian pacer. Moderate coronary artery calcifications. Unchanged fusiform aneurysmal dilation of the ascending thoracic aorta, 4.4 x 4.4 cm. Mild to moderate atherosclerotic plaque without dissection. Unremarkable ulnar artery. Moderate sized left Bochdalek hernia. No pneumothorax or pleural effusion. Right greater than left basal lower lobe and right middle lobe groundglass densities. Mild right hemidiaphragmatic elevation. Calcified granuloma of the basal left lower lobe. The central airways are patent. Mild wall thickening of the distal esophagus. Debris filled upper thoracic esophagus. There are a few scattered hepatic cysts redemonstrated. Bilateral gynecomastia. Left shoulder arthroplasty. Degenerative changes of the right shoulder and spine with right shoulder joint effusion and intra-articular loose bodies. IMPRESSION: 1. Debris-filled upper thoracic esophagus suggestive of a food bolus. 2. Right greater than left bibasilar groundglass densities are compatible with a nonspecific infectious or inflammatory pneumonitis. Correlation can be made with a follow-up video swallow study to exclude aspiration pneumonitis. 3. Unchanged fusiform dilation of the ascending thoracic aorta, 4.4 cm. ACT 112: Negative or not required by law. Electronically signed by: Tye Banegas M.D. 11/05/2020 4:06 PM Chest X-Ray 11/05/20 14:25 SINGLE VIEW CHEST CLINICAL HISTORY: Atypical chest pain. FINDINGS: 2 AP, portable, upright chest radiographs are compared to study dated 10/08/2015 and correlated with chest CT dated 05/27/2018. A 2-lead cardiac pacemaker is in place and partially obscures the left upper chest. The heart is enlarged. The pulmonary vasculature is noncongested. There are scattered calcified granulomas. Scarring/atelectasis is seen at the lung bases. No airspace consolidation or large pleural effusion is identified. No pneumothorax is seen. The skeletal structures are osteopenic. There are healed right-sided rib fractures. A left shoulder arthroplasty is in place. Advanced arthritic c hange is seen in the right shoulder. IMPRESSION: 1. Cardiomegaly and cardiac pacemaker. There is no radiographic evidence of congestive failure. 2. No airspace consolidation or large pleural effusion is identified. ACT 112: Negative or not required by law. Electronically signed by: Lee Camacho M.D. 11/05/2020 3:[address] 11/05/20 14:25 CT soft tissue neck w con CT DOSE: CLINICAL HISTORY: Choked on pork TECHNIQUE: Helical images were acquired during intravenous administration of 94 cc of Optiray. A dose lowering technique was utilized adhering to the principles of ALARA. COMPARISON STUDY: None. FINDINGS: The visualized portions of the lung apices are unremarkable. No thyroid masses are visualized. No salivary gland masses are visualized. There are no pathologically enlarged cervical lymph nodes. No necrotic nodes are evident. Isoattenuating structure with internal gas collection is seen within proximal portion of esophagus, measuring approximately 1.9 x 2.1 cm in axial image most likely representing ingested material, mass is less likely. There is no evidence of airway compromise. No mucosal space masses are visualized. IMPRESSION: Focal area of isoattenuating collection within proximal aspect of esophagus most likely representing ingested material. Neoplastic process is less likely. Further evaluation with direct inspection is suggested. ACT 112: Negative or not required by law. The above report was generated using voice recognition software. It may contain grammatical, syntax or spelling errors. Electronically signed by: Bri Cotter DO 11/05/2020 4:18 PM Medications Administered Discontinued Medications Ioversol (Optiray 320 100ml) 94 ml IV ONCE ONE Stop: 11/05/20 15:44 Last Admin: 11/05/20 15:43 Dose: 94 ml Documented by: [id number] Home Medications calcium carbonate 500 mg (1,250 mg)-vitamin D3 125 unit tablet 1 tab PO QPM tab 10/15/18 [History Confirmed 11/05/20] cholecalciferol (vitamin D3) 25 mcg (1,000 unit) capsule 1,000 units PO QAM cap 10/15/18 [History Confirmed 11/05/20] aspirin 81 mg tablet,delayed release (Aspirin Low Dose) 81 mg PO QAM 10/28/18 [History Confirmed 11/05/20] vit C 250 mg-vit E 90 mg-zinc 40 mg-copper 1 [id number] capsule (PreserVision AREDS-2) 1 tab PO BID 10/28/18 [History Confirmed 11/05/20] perphenazine 4 mg tablet 8 mg PO QPM tab 09/27/19 [History Confirmed 11/05/20] famotidine 20 mg tablet 20 mg PO QAM #180 tab 01/03/20 [History Confirmed 11/05/20] simvastatin 40 mg tablet 40 mg PO HS #90 tab 01/15/20 [Rx Confirmed 11/05/20] finasteride 5 mg tablet 5 mg PO HS #90 tab 01/24/20 [Rx Confirmed 11/05/20] doxazosin 8 mg tablet 4 mg PO QAM #45 tab 03/18/20 [Rx Confirmed 11/05/20] levothyroxine 75 mcg tablet 75 mcg PO QAM 06/05/20 [History Confirmed 11/05/20] perphenazine 4 mg tablet 4 mg PO QAM 06/05/20 [History Confirmed 11/05/20] oxybutynin chloride 5 mg tablet 5 mg PO BID #180 tab 08/27/20 [Rx Confirmed 11/05/20] escitalopram oxalate 20 mg tablet 20 mg PO DAILY 11/05/20 [History Confirmed 11/05/20] ECG Additional Comments: Atrial-paced rhythm with prolonged AV conduction Cannot rule out Anterior infarct , age undetermined Abnormal ECG When compared with ECG of 29-OCT-2015 16:49, Minimal criteria for Anterior infarct are now Present Code Status & VTE Plan Code Status CODE: FULL VTE: SCD's, Lovenox 40 sub q daily Supervising Physician Co-Signing Physician Notes During face to face encounter with patient, obtained a physical and history. My history and physcial examination did not differ from above. I reviewed above note and agree with it. I discussed plan with DEVAUGHN Hodge and the patient. Patient will be admitted for dysphagia and will be going to the OR for an endosocpy to remove any food devris in the esophagus. PG Care Time/CCT Total # of Minutes Spent Total Time Spent with Patient: Total time spent is greater than 50% in coordination of care (as documented) at patient's floor/unit and/or counseling patient: Coding Level of Care Code 72571 Initial Inpt Care Lvl 3 Diagnoses Aspiration into airway T17.908A SSS (sick sinus syndrome) I49.5 Anemia D64.9 Hypercholesteremia E78.00 Hypothyroidism E03.9 Aortic aneurysm I71.9 Hypertension I10 Hypertension type: essential hypertension Disorder of urinary system, unspecified N39.9 (1) Hypertension Hypertension type: essential hypertension Qualified Code(s): I10 - Essential (primary) hypertension
--- NOTE | 2020-11-05 17:23 | Gastrointestinal Consultation ---
Date of Consultation November 05, 2020 Assessment & Plan (1) Dysphagia: (2) Abnormal CT scan, esophagus: (3) Odynophagia: food bolus confirmed on CT with hypoxia on 4L o2. Recs: NPO EGD emergently in the OR to remove obstruction supportive care, IVFs admit to medicine for observation overnight Thank you for allowing me to participate in the care of this patient History of Present Illness History of Present Illness 75 yo male here with hx CVA here with food bolus. He says earlier today in the afternoon he had pork chops for lunch. He had about three bites of it then started choking. Currently having odynophagia and feels food stuck in his throat around his braga apple. He also is having dyspnea and was hypoxic, had to be placed on supplemental oxygen 4L. Having difficulty swallowing his secretions currently. CT soft tissue neck shows food lodged in proximal esophagus. He ate around 1230 pm. covid test is pending. He says this has happened before 1-2 years ago, did not have an EGD at that time although he has had an EGD in the past. labs reviewed. Allergies Allergy/AdvReac Type Severity Reaction Status Date / Time codeine AdvReac Unknown MENTAL Verified 11/05/20 16:35 INCOHERENCE warfarin AdvReac Unknown INTERFERES Verified 11/05/20 16:35 WITH OTHER MEDS METAL Allergy Unknown SEE NOTES Uncoded 11/05/20 16:35 BELOW Opioid Analgesics AdvReac Unknown mental Uncoded 11/05/20 16:35 incoherence Home Medications Medication Instructions Recorded Confirmed Type calcium carbonate 500 mg (1,250 1 tab PO QPM tab 10/15/18 11/05/20 History mg)-vitamin D3 125 unit tablet cholecalciferol (vitamin D3) 25 1,000 units PO QAM cap 10/15/18 11/05/20 History mcg (1,000 unit) capsule aspirin 81 mg tablet,delayed 81 mg PO QAM 10/28/18 11/05/20 History release (Aspirin Low Dose) vit C 250 mg-vit E 90 mg-zinc 40 1 tab PO BID 10/28/18 11/05/20 History mg-copper 1 [id number] capsule (PreserVision AREDS-2) perphenazine 4 mg tablet 8 mg PO QPM tab 09/27/19 11/05/20 History famotidine 20 mg tablet 20 mg PO QAM #180 tab 01/03/20 11/05/20 History simvastatin 40 mg tablet 40 mg PO HS #90 tab 01/15/20 11/05/20 Rx finasteride 5 mg tablet 5 mg PO HS #90 tab 01/24/20 11/05/20 Rx doxazosin 8 mg tablet 4 mg PO QAM #45 tab 03/18/20 11/05/20 Rx levothyroxine 75 mcg tablet 75 mcg PO QAM 06/05/20 11/05/20 History perphenazine 4 mg tablet 4 mg PO QAM 06/05/20 11/05/20 History oxybutynin chloride 5 mg tablet 5 mg PO BID #180 tab 08/27/20 11/05/20 Rx escitalopram oxalate 20 mg tablet 20 mg PO DAILY 11/05/20 11/05/20 History Patient History Medical History Anemia ? CURRENT STATUS Anxiety Aortic aneurysm USED TO MONITOR-NOT CURRENTLY Atrial fibrillation no blood thinners---follows with Dr. Bonilla Chronic back pain CVA (cerebral vascular accident) BRAIN BLEED-2006?-affected balance, causing dizziness, poor balance, light headed---no neurologist now was following with Dr. Chavez-AND DISCHARGED-F/U PCP SPEECH IS SLOW, COMMUNICATION EFFECTIVE ; PT REPORTS SPEECH SLOW SINCE AFTER BRAIN BLEED - SPEAK LOUD AND SLOW Depression GERD (gastroesophageal reflux disease) Gout HX History of colon polyps BENIGN Hyperlipidemia Hypertension was on meds, but was taken off Hypothyroidism Spinal stenosis Surgical History History of bilateral carpal tunnel release History of colonoscopy History of elbow surgery right History of esophagogastroduodenoscopy (EGD) History of left shoulder replacement History of tooth extraction History of total left knee replacement (TKR) History of total right knee replacement (TKR) Pacemaker Biotronik 09/2015 @ [facility] - PLACED "TO KEEP ME FROM FALLING" PT REPORTS HAS HELPED Family History Brother Prostate cancer Father Myocardial infarction Family/Other Cardiac disorder Stroke Hypertension Sister Parkinson disease Other No family history of adverse response to anesthesia Denies family history of Ovarian cancer Breast cancer Colorectal cancer Social History Smoking Status: Never smoker Second Hand Exposure: No; Hx Alcohol Use: No Hx Substance Use: No Preferred Language: Lao Communication Ability: Effective Visual Impairment: No Limitations Hearing Ability: Normal Windows Desktop Support Required: No Beliefs That Will Affect Care: None marital status: / Current Living Situation: Alone Current Living Situation Comment: [facility] current occupational status: retired Feels Safe at Home: Yes Dental Care, Regularly: Yes Physical Activity Frequency: Daily Seatbelt Use: always Assistive Devices: Cane Review of Systems Constitutional: no fever, no chills and no weight loss Eyes: as per Subjective / HPI Ear, Nose, Mouth, Throat: as per Subjective / HPI Respiratory: no dyspnea and no dyspnea on exertion Cardiovascular: no chest pain and no palpitations Gastrointestinal: as per Subjective / HPI Musculoskeletal: no joint pain and no swelling Integumentary: no rash and no lesions Neurologic: no numbness and no paresthesia Psychiatric: no depression and no anxiety Endocrine: no fatigue Hematologic / Lymphatic: no easy bleeding and no easy bruising Physical Exam Constitutional: WD/WN, vitals as above Eyes: EOM intact bilaterally Neck: normal visual inspection Respiratory: normal respiratory effort, lungs clear to auscultation Cardiovascular: RRR, no murmur, no edema Gastrointestinal (Abdomen): Inspection/Auscultation: abdomen normal to inspection; abdomen not distended Percussion/Palpation: abdomen soft; abdomen nontender and no hepatosplenomegaly Musculoskeletal: Extremities: no cyanosis Gait: normal gait Skin: no rashes, warm and dry Neurologic: moves all extremities Psychiatric: A+Ox3, euthymic affect Results & Data ([facility]) Vital Signs (Past 12 Hours) Vital Signs Temp Pulse Pulse Resp BP BP Pulse Ox 11/05/20 14:25 75 20 93 11/05/20 13:46 36.6 C 73 85 20 152/84 H 152/84 H 94 PG Care Time/CCT Total # of Minutes Spent Total Time Spent with Patient: Total time spent is greater than 50% in coordination of care (as documented) at patient's floor/unit and/or counseling patient: Coding Level of Care Code 40904 Office/OBS Consult Lvl 4 Diagnoses Dysphagia R13.[address] scan, esophagus R93.3 Odynophagia R13.10
[2020-11-05] MEDS ORDERED: LACTATED RINGER'S 1,000 ML IV ONE (17:25)
[2020-11-05] MEDS ORDERED: ONDANSETRON INJ 2 MG/ML 2 ML VIAL ONE (17:49)
[2020-11-05] MEDS ORDERED: LIDOCAINE 2% 2 ML VIAL/AMP(20MG/ML) INFIL ONE (17:49)
[2020-11-05] MEDS ORDERED: DEXAMETHASONE SOD INJ 4 MG/ML VIAL ONE (17:49)
[2020-11-05] MEDS ORDERED: PROPOFOL IV EMULSION 10 MG/ML 20 ML VIAL IV ONE (17:49)
--- NOTE | 2020-11-05 17:50 | Anesthesiology Consultation ---
Date of Service November 05, 2020 Assessment & Plan (1) Encounter for pre-operative examination: Chart Review Chart Review: Acceptable Risk for Surgery (urgent) History Surgery Operation Date: 11/05/20 11:45 Proposed Procedures p Esophagogastroduodenoscopy - Tiago Herring MD Height/Weight Height: 5 ft 6 in Weight: 79.7 kg Allergies Allergy/AdvReac Type Severity Reaction Status Date / Time codeine AdvReac Unknown MENTAL Verified 11/05/20 16:35 INCOHERENCE warfarin AdvReac Unknown INTERFERES Verified 11/05/20 16:35 WITH OTHER MEDS METAL Allergy Unknown SEE NOTES Uncoded 11/05/20 16:35 BELOW Opioid Analgesics AdvReac Unknown mental Uncoded 11/05/20 16:35 incoherence Medications Home Medications Medication Instructions Recorded Confirmed Last Taken calcium carbonate 500 mg (1,250 1 tab PO QPM tab 10/15/18 11/05/20 01/30/19 mg)-vitamin D3 125 unit tablet cholecalciferol (vitamin D3) 25 1,000 units PO QAM cap 10/15/18 11/05/20 01/30/19 mcg (1,000 unit) capsule aspirin 81 mg tablet,delayed 81 mg PO QAM 10/28/18 11/05/20 01/30/19 release (Aspirin Low Dose) vit C 250 mg-vit E 90 mg-zinc 40 1 tab PO BID 10/28/18 11/05/20 01/30/19 mg-copper 1 [id number] capsule (PreserVision AREDS-2) perphenazine 4 mg tablet 8 mg PO QPM tab 09/27/19 11/05/20 Unknown famotidine 20 mg tablet 20 mg PO QAM #180 tab 01/03/20 11/05/20 Unknown simvastatin 40 mg tablet 40 mg PO HS #90 tab 01/15/20 11/05/20 Unknown finasteride 5 mg tablet 5 mg PO HS #90 tab 01/24/20 11/05/20 Unknown doxazosin 8 mg tablet 4 mg PO QAM #45 tab 03/18/20 11/05/20 Unknown levothyroxine 75 mcg tablet 75 mcg PO QAM 06/05/20 11/05/20 Unknown perphenazine 4 mg tablet 4 mg PO QAM 06/05/20 11/05/20 Unknown oxybutynin chloride 5 mg tablet 5 mg PO BID #180 tab 08/27/20 11/05/20 Unknown escitalopram oxalate 20 mg tablet 20 mg PO DAILY 11/05/20 11/05/20 Unknown NPO Last Intake of Fluids Comment: Food bolus Last Intake of Solids Comment: Food bolus Past Medical History Medical History Anemia ? CURRENT STATUS Anxiety Aortic aneurysm USED TO MONITOR-NOT CURRENTLY Atrial fibrillation no blood thinners---follows with Dr. Bonilla Chronic back pain CVA (cerebral vascular accident) BRAIN BLEED-2006?-affected balance, causing dizziness, poor balance, light headed---no neurologist now was following with Dr. Chavez-AND DISCHARGED-F/U PCP SPEECH IS SLOW, COMMUNICATION EFFECTIVE ; PT REPORTS SPEECH SLOW SINCE AFTER BRAIN BLEED - SPEAK LOUD AND SLOW Depression GERD (gastroesophageal reflux disease) Gout HX History of colon polyps BENIGN Hyperlipidemia Hypertension was on meds, but was taken off Hypothyroidism Spinal stenosis Exercise / Class Metabolic Activity II 4-5 Yardwork/Stairs/Walk up hill Past Family History Family History Brother Prostate cancer Father Myocardial infarction Family/Other Cardiac disorder Stroke Hypertension Sister Parkinson disease Other No family history of adverse response to anesthesia Denies family history of Ovarian cancer Breast cancer Colorectal cancer Past Surgical History Surgical History History of bilateral carpal tunnel release History of colonoscopy History of elbow surgery right History of esophagogastroduodenoscopy (EGD) History of left shoulder replacement History of tooth extraction History of total left knee replacement (TKR) History of total right knee replacement (TKR) Pacemaker Biotronik 09/2015 @ [facility] - PLACED "TO KEEP ME FROM FALLING" PT REPORTS HAS HELPED Social History Smoking Status: Never smoker Hx Alcohol Use: No Hx Substance Use: No substance use type: does not use Physical Exam Vital Signs Last Vital Signs Temp 36.6 C 11/05/20 13:46 Pulse 80 11/05/20 14:36 Resp 19 11/05/20 14:36 BP 142/79 H 11/05/20 14:36 Pulse Ox 91 11/05/20 14:36 Testing Laboratory Results 11/05/20 14:43 11/05/20 14:43 APTT 23.1 Seconds (21.0-31.0) 11/05/20 14:43 11/05/20 14:55 POC Glucose (other) 97 Electrocardiogram Date: 11/05/20 atrial paced at 77
[2020-11-05] MEDS ORDERED: SUCCINYLCHOLINE 100MG/5ML SYR IV ONE (17:52)
[2020-11-05] MEDS ORDERED: ATROPINE SULFATE 0.1 MG/ML 10ML SYR IV PRN (18:31)
[2020-11-05] MEDS ORDERED: KETOROLAC 30 MG/ML VIAL IV PRN (18:31)
[2020-11-05] MEDS ORDERED: LABETALOL HCL IV 5 MG/ML 20ML IV PRN (18:31)
[2020-11-05] MEDS ORDERED: ONDANSETRON INJ 2 MG/ML 2 ML VIAL IV PRN ×2 (18:31→20:35)
[2020-11-05] MEDS ORDERED: fentaNYL citrate 100 MCG/2 ML VIAL ONE (18:35)
--- NOTE | 2020-11-05 18:44 | Electrocardiogram Report ---
Test Reason : Blood Pressure : / mmHG Vent. Rate : 077 BPM Atrial Rate : 077 BPM P-R Int : 246 ms QRS Dur : 088 ms QT Int : 374 ms P-R-T Axes : 009 017 023 degrees QTc Int : 423 ms Atrial-paced rhythm with prolonged AV conduction Abnormal ECG When compared with ECG of 29-OCT-2015 16:49, Minimal criteria for Anterior infarct are now Present Confirmed by Blayne Pelayo ([id number]) on 11/05/2020 6:44:07 PM Referred By: REFERRED SELF Confirmed By:Enoc Pelayo
--- NOTE | 2020-11-05 18:59 | GI REPORT ---
Patient Name: Salvador Heredia Procedure Date: 11/05/2020 6:13 PM Date of : 1945 Admit Type: Emergency Department Age: 75 Gender: Male Attending MD: Tiago Herring MD Procedure: Upper GI endoscopy Providers: Tiago Herring MD Referring MD: Mo Clemente Md Indications: Odynophagia, Foreign body in the esophagus Medicines: Monitored Anesthesia Care Complications: No immediate complications. Estimated blood loss: None. Estimated Blood Loss: Estimated blood loss: none. Procedure: Pre-Anesthesia Assessment: - Prior Anticoagulants: The patient has taken no previous anticoagulant or antiplatelet agents. - ASA Grade Assessment: III - A patient with severe systemic disease. After obtaining informed consent, the endoscope was passed under direct vision. Throughout the procedure, the patient's blood pressure, pulse, and oxygen saturations were monitored continuously. The Endoscope was introduced through the mouth, and advanced to the second part of duodenum. The upper GI endoscopy was accomplished without difficulty. The patient tolerated the procedure well. Findings: Food was found in the upper third of the esophagus. Removal of food was accomplished and remaining bolus was pushed into the stomach, obstruction was relieved. Estimated blood loss: none. No evidence of stricture nor ring in the esophagus. esophagitis present in the upper esophagus likely as a result of the food bolus impaction The entire examined stomach was normal. The duodenal bulb and second portion of the duodenum were normal. Estimated blood loss: none. Impression: - Food in the upper third of the esophagus. Removal was successful. - Normal stomach. - Normal duodenal bulb and second portion of the duodenum. Recommendation: - Return patient to [facility] for ongoing care. - Clear liquid diet today. advance as tolerated tomorrow morning if stable -supportive care, IVFs -O2 support as needed, was requiring 4L oxygen in ER. Tiago Herring MD 11/05/2020 6:59:42 PM This report has been signed electronically. Note Initiated On: 11/05/2020 6:13 PM Number of Addenda: 0 I attest to the content of the Intraoperative Record and orders documented therein, exceptions below {[id number]}
--- NOTE | 2020-11-05 19:02 | Procedure Note ---
Procedure Note Date of Service November 05, 2020 Note Gi brief post procedure note EGD findings: pork chop food bolus in upper esophagus, obstruction removed through suction and pushing bolus into the stomach with a cap. no evidence of stricture or ring. Impression:food bolus impaction of unchewed meat, relieved Recs: supportive care admit to medicine for observation overnight, aspiration precautions clear liquids today, advance as tolerated tomorrow morning if stable and can lik maricarmen d/c home if stable tomorrow chew food thoroughly rest as per primary team Tiago Herrnig MD Gastroenterology Coding
--- NOTE | 2020-11-05 20:00 | Anesthesiology Progress Note ---
Date of Service November 05, 2020 Anesthesia Post Procedure Vital Signs Vital Signs: Temp Pulse Pulse Pulse Resp BP BP 11/05/20 19:55 80 23 151/69 H 11/05/20 19:40 37.0 C 75 24 146/78 H 11/05/20 19:30 75 19 140/72 11/05/20 19:20 72 25 H 139/68 11/05/20 19:10 72 18 141/63 H 11/05/20 19:02 36.1 C L 78 20 146/71 H 11/05/20 18:25 37.4 C 78 24 11/05/20 18:00 83 17 183/73 H 11/05/20 17:42 74 20 174/86 H 11/05/20 14:36 80 19 142/79 H 11/05/20 14:25 75 20 11/05/20 13:46 36.6 C 73 85 20 152/84 H BP Pulse Ox 11/05/20 19:55 96 11/05/20 19:40 94 11/05/20 19:30 95 11/05/20 19:20 93 11/05/20 19:10 95 11/05/20 19:02 95 11/05/20 18:25 177/102 H 99 11/05/20 18:00 93 11/05/20 17:42 95 11/05/20 14:36 91 11/05/20 14:25 93 11/05/20 13:46 152/84 H 94 Pain Intensity Lumbar: Pain Intensity: 5 Transfer of Care Handoff Completed per policy Notes Mental Status: alert / awake / arousable Patient Amnestic to Procedure: Yes Nausea / Vomiting: adequately controlled Pain: adequately controlled Airway Patency, RR, SpO2: stable & adequate BP & HR: stable & adequate Hydration State: stable & adequate Anesthetic Complications: no major complications apparent
[2020-11-05] MEDS ORDERED: ACETAMINOPHEN 325 MG TAB PO PRN (20:35)
[2020-11-05] MEDS ORDERED: CALCIUM 600MG + VIT D 400 IU TAB PO SCH (21:00)
[2020-11-05] MEDS ORDERED: PERPHENAZINE 2 MG TABLET PO SCH (21:00)
[2020-11-05] MEDS ORDERED: FINASTERIDE 5 MG TAB PO SCH (21:00)
[2020-11-05] MEDS ORDERED: SIMVASTATIN 40 MG TAB PO SCH (21:00)
[2020-11-05] MEDS: ALBUTEROL 0.083% NEBU SOLN 3 ML VIAL NEB SCH (21:18)
[2020-11-05] MEDS: OXYBUTYNIN CHLORIDE 5 MG TAB PO SCH (21:56)
[2020-11-06] MEDS ORDERED: LEVOTHYROXINE SODIUM 75 MCG TABLET PO SCH (06:30)
[2020-11-06] MEDS: ALBUTEROL 0.083% NEBU SOLN 3 ML VIAL NEB SCH ×3 (07:46→13:18)
[2020-11-06] MEDS ORDERED: PERPHENAZINE 2 MG TABLET PO SCH (09:00)
[2020-11-06] MEDS ORDERED: CHOLECALCIFEROL 1,000 UNITS 25 MCG TAB PO SCH (09:00)
[2020-11-06] MEDS ORDERED: ESCITALOPRAM OXALATE 20 MG TAB PO SCH (09:00)
[2020-11-06] MEDS ORDERED: DOXAZosin MESYLATE 4 MG TAB PO SCH (09:00)
[2020-11-06] MEDS ORDERED: ASPIRIN 81 MG ECTAB PO SCH (09:00)
[2020-11-06] MEDS ORDERED: FAMOTIDINE 20 MG TAB PO SCH (09:00)
[2020-11-06] MEDS ORDERED: ENOXAPARIN INJ 40 MG/0.4 ML SYR SQ SCH (09:30)
[2020-11-06] MEDS: OXYBUTYNIN CHLORIDE 5 MG TAB PO SCH (09:40)
--- NOTE | 2020-11-06 11:33 | Gastroenterology Progress Note ---
Date of Service November 06, 2020 Assessment & Plan (1) Food impaction of esophagus: (2) Dysphagia: Plan: -Protonix 40 mg BID -Would advise video swallow with [employer] -Supportive care per primary team Admission and Anticipated Discharge Date Admission Date: November 05, 2020 Supervising Physician Co-Signing Physician Notes Agree with MOSHE Bates as above Abd: Soft, NT, ND, +BS Patient was in process of discharge at the time I saw him Recommend outpatient [employer] evaluation and treatment Continue current therapy and supportive care Subjective Patient is a 75 yo male who presented to the ED with a food bolus. EGD was performed on 11/05/[address] Herring and a large food bolus was pushed into the stomach. There was no underlying esophageal abnormality noted and there was concern for poor chewing and swallowing mechanics and aspiration issues, particularly in light of patient's dementia. Patient denies physical complaints today. Review of Systems Constitutional: no fever and no chills Respiratory: + cough Cardiovascular: no chest pain Gastrointestinal: + dysphagia; no abdominal pain and no heartburn Physical Exam Constitutional: WD/WN, vitals as above Respiratory: no respiratory distress Gastrointestinal (Abdomen): normal bowel sounds, soft, nontender, no hepatosplenomegaly Results & Data Results & Data ([facility]) Vital Signs (Past 12 Hours) Vital Signs Temp Pulse Resp BP Pulse Ox Pulse Ox 11/06/20 07:46 66 16 94 11/06/20 07:08 36.7 C 78 19 121/71 97 11/06/20 01:30 36.8 C 80 17 160/74 H 97 97 11/06/20 00:01 77 18 94 PG Care Time/CCT Total # of Minutes Spent Total Time Spent with Patient: Total time spent is greater than 50% in coordination of care (as documented) at patient's floor/unit and/or counseling patient: Coding Level of Care Code 41068 Subseq Hosp Care Lvl 2 Diagnoses Dysphagia R13.10 Food impaction of esophagus T18.128A Encounter type: initial encounter (1) Food impaction of esophagus Encounter type: initial encounter Qualified Code(s): T18.128A - Food in esophagus causing other injury, initial encounter
[2020-11-06] MEDS ORDERED: PANTOprazole 40 MG TAB PO SCH (16:05)
--- NOTE | 2020-11-06 16:21 | Fluoroscopy Report ---
MODIFIED BARIUM SWALLOW CLINICAL HISTORY: food bolus extraction from esophagus COMPARISON STUDY: CT of the neck November 05, 2020. FLUOROSCOPY TIME: 2.1 minutes. TECHNIQUE: A modified barium swallow was performed in conjunction with Speech Pathology. The patient ingested varying consistencies of barium containing material. Video fluoroscopy was performed. FINDINGS: There was penetration with possible trace tracheal aspiration with thin liquids. Epiglottic inversion was normal. Laryngeal elevation was normal. There is mild premature spillage. No aspiratio n was identified with the remainder of the consistencies. Moderate esophageal dysmotility was noted. No esophageal filling defects are identified at site of abnormality on CT of November 05, 2020. The f indings suggest interval full bolus extraction. Mucosal detail is diminished on this exam. IMPRESSION: 1. Penetration with possible trace tracheal aspiration with thin liquids. No aspiration with remainde r of the consistencies. 2. Moderate esophageal dysmotility. No esophageal filling defects. Findings suggest interval fluid nori karen extraction. 3. Moderate esophageal dysmotility. 4. Full recommendations by speech pathology to follow. ACT 112: Negative or not required by law. Electronically signed by: Aron Warren M.D. 11/06/2020 4:20 PM
--- NOTE | 2020-11-06 16:31 | Discharge Summary ---
Date of Service November 06, 2020 Admission HPI Per Admitting Provider 75 YOM resident of the [facility], with a past medical history of: Anemia, HLD, Hypothyroidism, aortic aneurysm4.5 cm(last visualized 2013), HTN, dementia, pacemaker secondary to symptomatic bradycardia, hemorrhagic CVA. Patient came to the EMD today via EMS following choking on a pork chop he was having for lunch. The patient feels that he took to big of a bite and it was dry, but he was able to get it up with vomiting. He was noted to be hypoxic on arrival of EMS and remains on 2-3LNC for SPO2 of 98% as of current. In the EMD the patient had a CT scan of the neck and chest performed as well as CXR. CT of the chest reveals debris filled upper thoracic esophagus consistent with food bolus and post aspiration pneumonitis bi-basilar but Rt>LT. GI consulted while in the EMD for food bolus, plan is to take him to the OR for EGD support. Patient will be admitted following this procedure as he is hypoxic off oxygen and will continue treatment for aspiration pneumonitis. His routine laboratory work is normal with exception of mild anemia of 12.6. Patient states he otherwise feels well. Principal Diagnosis Aspiration, food bolus Discharge Exam Constitutional WD/WN, vitals as above Eyes + anicteric sclerae Neck trachea midline, no thyromegaly Respiratory normal respiratory effort, lungs clear to auscultation Cardiovascular RRR, no murmur, no edema Chest (Breasts) Chest: normal inspection of chest Gastrointestinal (Abdomen) normal bowel sounds, soft, nontender, no hepatosplenomegaly Musculoskeletal Extremities: extremities normal to inspection; no cyanosis and no clubbing Skin no rashes, warm and dry Neurologic moves all extremities and awake; no focal motor deficits Psychiatric A+Ox3, euthymic affect Lymphatic no lymphedema Discharge Data Allergies Allergy/AdvReac Type Severity Reaction Status Date / Time codeine AdvReac Mild MENTAL Verified 11/05/20 18:56 INCOHERENCE hydrocodone AdvReac Mild CONFUSION,I Verified 11/05/20 18:56 NCOHERENCE warfarin AdvReac Mild INTERFERES Verified 11/05/20 18:56 WITH OTHER MEDS oxycodone AdvReac CONFUSION,I Verified 11/05/20 18:56 NCOHERENCE Consultations 11/05/20 16:28 ED Decision to Admit Stat 11/05/20 17:14 Consult Gastroenterology Stat Procedures Performed Operation Date: 11/05/20 11:45 Actual Procedures p Esophagogastroduodenoscopy - Tiago Herring MD Ordered Studies 11/05/20 14:25 CT chest diagnostic w con Stat CT soft tissue neck w con Stat 11/06/20 13:00 FL video swallow Routine Hospital Course (1) Aspiration into airway: GI consulted- appreciate assistance - To OR for EGD and removed food bolus - Pulmonary toileting with nebs scheduled q6 and flutter valve - received 1gm Rocephin in EMD- no further abx given, had no fevers, hypoxia resolved, no cough Speech tx consulted, had VFSS without aspiration recommend liquids diet this evening and easy to chew diet after that starting tomorrow stable for dc to home today (2) SSS (sick sinus syndrome): With pacemaker for symptomatic bradycardia - reportedly also had history of paroxysmal atrial arrhythmias - Dual chamber 10/29/15 - DDDR low rate 70, upper rate 120 - evaluated in June (3) Anemia: chronically mild anemia - conlonscopy up to date - follows with PCP with routine labs (4) Hypercholesteremia: Continue simvastatin 40mg daily (5) Hypothyroidism: Continue synthroid 75mcg PO daily (6) Aortic aneurysm: Stable non-dedicated study here measures it at 4.4cm- previously noted at 4.5 cm 2013 - continue BP control and statin - he has declined routine following of this per PCP notes (7) Hypertension: Goal would be ideal <130, likely not on agent secondary to dizziness and low HR - treat if acutely rises while in house, otherwise continue to follow with PCP (8) Disorder of urinary system, unspecified: has LUTS but no urology following - urgency and frequency noted, feels stream is adequate - continue doxazosin, oxybutynin, finasteride Dispo-dc to home, doing well Total Time Total Time Spent Total Time Spent (In Minutes): 35 min Discharge Plan Discharge Items Patient Disposition: Home - Self-Care Reason For Visit: ASPIRATION WITH FOOD BOLUS Discharge Diagnosis: aspiration with food bolus Condition on Discharge: Good Activity: Resume your previous activity Non-emergency contact: Primary Care Provider Call non-emergency contact if: you have any medication questions and your sympt oms worsen Follow-up/Referrals: Tmio Chopra III, MD [Primary Care Provider] - (Follow up within 1-2 weeks.) Diet: Regular Diet Texture: Easy to Chew Diet Comment: Liquids diet this evening and then advance to easy to chew tomorrow Addtl Attending Provider Instructions: You were admitted with a food bolus stuck in your esophagus which was removed urgently by endoscopy. Please stay on the antacid called Protonix twice a day x 1 month. Follow an easy to chew diet from here on out to avoid recurrence of this in the future. Pending Studies at Discharge: No Stand-Alone Forms: My [facility] Medications and DC Order Prescriptions: New pantoprazole 40 mg Tablet,Delayed Release (Dr/Ec) 40 mg PO BID Qty: 60 RF: 0 Continued simvastatin 40 mg tablet 40 mg PO HS Qty: 90 RF: 3 finasteride 5 mg tablet 5 mg PO HS Qty: 90 RF: 3 doxazosin 8 mg tablet 4 mg PO QAM Qty: 45 RF: 3 oxybutynin chloride 5 mg tablet 5 mg PO BID Qty: 180 RF: 3 calcium carbonate-vitamin D3 500 mg(1,250mg) -125 unit tablet 1 tab PO QPM RF: 0 cholecalciferol (vitamin D3) 1,000 unit capsule 1,000 units PO QAM RF: 0 famotidine 20 mg tablet 20 mg PO QAM Qty: 180 RF: 0 perphenazine 4 mg tablet 8 mg PO QPM RF: 0 aspirin [Aspirin Low Dose] 81 mg Tablet,Delayed Release (Dr/Ec) 81 mg PO QAM RF: 0 PreserVision AREDS-2 [id number] Capsule 1 tab PO BID RF: 0 perphenazine 4 mg Tablet 4 mg PO QAM RF: 0 levothyroxine 75 mcg tablet 75 mcg PO QAM RF: 0 escitalopram oxalate 20 mg tablet 20 mg PO DAILY RF: 0 Discharge Orders: Discharge Order (Routine); Ordered 11/06/20 Ordered By: Carlie Fish Admission Data Admit Date/Time: 11/05/20 17:24 Attending Provider: Cralie Fish Admit Provider: Brigido Cooper Primary Care Provider: Timo Chopra III Other Providers: Brigido Cooper ; Tiago Herring Coding Level of Care Code D/C DAY MANAGEMENT >30 MINS Diagnoses Aspiration into airway T17.908A SSS (sick sinus syndrome) I49.5 Anemia D64.9 Hypercholesteremia E78.00 Hypothyroidism E03.9 Aortic aneurysm I71.9 Hypertension I10 Hypertension type: essential hypertension Disorder of urinary system, unspecified N39.9
== END 2020-11-06 18:15 | disposition home or self-care (01) | DRG 394 ==
LOC: ED 13:53 → 2S 17:24 → SUATTDRO 17:24 → ASU 18:20 → 3N 11-06 01:46

== ENCOUNTER 2021-04-19 15:04 | Observation (INO) ==
--- NOTE | 2021-04-19 15:10 | Emergency Department Note ---
Impression & Plan Stroke ADMIT ED Provider Note HPI: The patient is a 76-year-old gentleman with history of sick sinus syndrome, history of intracranial hemorrhage in 2006, presents the emergency department from his nursing facility over concern for right-sided facial droop. Per EMS re port and the daughter's report at the bedside, she was contacted regarding the patient having some difficulty with his speech beyond his baseline difficulty, also noted to have some right-sided facial droop that was first noticed by staff today around noon when the patient came downstairs for lunch. Is unclear when the onset of this deficit actually was. She states that she spoke to him on the phone last night he seemed to be in his normal state of health. On arrival here to the ED the patient does have some obvious right-sided facial droop although this is noted on the forehead as well. He is alert. He is in no acute distress otherwise and saturating well on room air on my initial assessment. Stroke alert was activated from the field. ROS: -Neuro: Right-sided facial droop, difficulty with speech *10 point review systems was conducted and is otherwise negative unless stated above *Outpatient medications and allergy history reviewed PE: General: Alert, NAD HEENT: Normocephalic, atraumatic Eyes: Extraocular eye movement is intact, no scleral erythema Pulmonary: Clear to auscultation bilaterally, no wheezing Cardio: Regular rate and rhythm GI: Abdomen is soft, nontender : No suprapubic tenderness MSK: No evidence of trauma or malformation of the extremities, no edema Skin: No evidence of rash Neuro: Alert, follows commands appropriately, there is no drift of the upper extremities or lower extremities with testing against gravity, patient does have Psychiatric: 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: - An order was placed for continuous cardiac monitoring - Patient was noted to be in paced rhythm with rate of 75 EKG: Rate: 76 Rhythm: Paced Intervals: OK 232, otherwise within normal limits ST changes: No ST elevation Time: 1520 NIH STROKE SCALE: 1A: Level of consciousness Alert; keenly responsive 0 1B: Ask month and age Both questions right 0 1C: 'Blink eyes' & 'squeeze hands' Performs both tasks 0 2: Horizontal extraocular movements Normal 0 3: Visual clancy No visual loss 0 4: Facial palsy Moderate paralysis (lower face) +2 5A: Left arm motor drift No drift for 10 seconds 0 5B: Right arm motor drift No drift for 10 seconds 0 6A: Left leg motor drift No drift for 5 seconds 0 6B: Right leg motor drift No drift for 5 seconds 0 7: Limb Ataxia No ataxia 0 8: Sensation Normal; no sensory loss 0 9: Language/aphasia Normal; no aphasia 0 10: Dysarthria Normal 0 11: Extinction/inattention No abnormality 0 TOTAL NIH SCORE = 2 Medical Decision Making: Patient presented to the emergency department with a chief complaint of right- sided facial droop, this was noticed by staff at his nursing facility. Unclear onset, he was noticed to have this droop when he came down the stairs around noon. This was 3 hours prior to arrival. In addition he has a history of an intracranial bleed in 2006, he is not considered a candidate for TPA therapy given unclear onset of symptoms in addition to high risk patient with history of intracranial bleeding. IV was established, patient was taken immediately to CT scan upon arrival to the ED, CT imaging of the head without contrast does not show any evidence of hemorrhage or stroke, CT angiography does not show any evidence of large vessel occlusion. I discussed all the above findings with on-call stroke neurology at [facility], Dr. Johnston, who did evaluate the patient via telestroke. He is in agreement at this time that the patient would not be a candidate for any lysis. Patient was given NIH stroke scale of 2 for right-sided facial droop, he does have some weakness of the forehead although it is not clear as he does also have some function, it is thought by Dr. Johnston following our discussion that the patient is more likely to have had an ischemic event as opposed to a Stevenson palsy and should be admitted for repeat CT imaging at 24 to 48 hours as he is not a candidate for an MRI as he has a pacemaker that is not compatible with MRI. Patient was given aspirin here in the ED. Lab work is otherwise fairly reassuring, troponin is negative x1, no critical electrolyte abnormalities are noted, EKG shows a paced rhythm without ischemic changes. Discussed with the patient and his family member at the bedside, patient will be admitted here at [facility] for secondary stroke work-up and repeat CT imaging. [facility] provider group hospitalist service was consulted for admission, case was discussed with the midlevel pro vider patient was admitted to the service of Dr. Hall for further care. Patient was admitted in stable condition. * CRITICAL CARE TIME: (45 ) minutes -Evaluation of the patient with acute stroke symptoms requiring emergent CT imaging, time spent at the bedside obtaining NIH stroke scale and discussion with stroke neurology at [facility] in regards to the patient's potential eligibility for lysis therapy, discussion with family at the bedside, interpretation of diagnostic studies, arrangement of admission Diagnosis: 1. Strokelike symptoms 2. Right-sided facial droop 3. History of CVA, hemorrhagic 4. Dementia Disposition: Admission Godfrey Panda DO Emergency Medicine Past Med/Surg History Medical History Anemia Anxiety Aortic aneurysm Atrial fibrillation Chronic back pain CVA (cerebral vascular accident) Depression GERD (gastroesophageal reflux disease) Gout History of colon polyps Hyperlipidemia Hypertension Hypothyroidism Spinal stenosis Surgical History History of bilateral carpal tunnel release History of colonoscopy History of elbow surgery History of esophagogastroduodenoscopy (EGD) History of left shoulder replacement History of tooth extraction History of total left knee replacement (TKR) History of total right knee replacement (TKR) Pacemaker Family History Brother Prostate cancer Father Myocardial infarction Family/Other Cardiac disorder Stroke Hypertension Sister Parkinson disease Other No family history of adverse response to anesthesia Denies family history of Ovarian cancer Breast cancer Colorectal cancer Social History Smoking Status: Never smoker Second Hand Exposure: No; Hx Alcohol Use: No Hx Substance Use: No Preferred Language: Lithuanian Communication Ability: Effective Visual Impairment: No Limitations Hearing Ability: Normal Tank Tester Required: No Beliefs That Will Affect Care: None marital status: Single Current Living Situation: Longterm Current Living Situation Comment: [facility] current occupational status: retired Feels Safe at Home: Yes Dental Care, Regularly: Yes Physical Activity Frequency: Daily Seatbelt Use: always Assistive Devices: Cane Allergies Allergies Allergy/AdvReac Type Severity Reaction Status Date / Time codeine AdvReac Mild MENTAL Verified 04/19/21 15:22 INCOHERENCE hydrocodone AdvReac Mild CONFUSION,I Verified 04/19/21 15:22 NCOHERENCE warfarin AdvReac Mild INTERFERES Verified 04/19/21 15:22 WITH OTHER MEDS oxycodone AdvReac CONFUSION,I Verified 04/19/21 15:22 NCOHERENCE Home Meds Home Medications Medication Instructions Recorded Confirmed calcium carbonate 500 mg-vitamin 1 tab PO QPM tab 10/15/18 04/19/21 D3 3.125 mcg (125 unit) tablet cholecalciferol (vitamin D3) 25 1,000 units PO QAM cap 10/15/18 04/19/21 mcg (1,000 unit) capsule aspirin 81 mg tablet,delayed 81 mg PO QAM 10/28/18 04/19/21 release (Aspirin Low Dose) vit C 250 mg-vit E 90 mg-zinc 40 1 tab PO BID 10/28/18 04/19/21 mg-copper 1 ex-xxzats-hrowni capsule (PreserVision AREDS-2) famotidine 20 mg tablet 20 mg PO QAM #180 tab 01/03/20 04/19/21 perphenazine 4 mg tablet See Rx Instructions .ROUTE .COMPLEX 06/05/20 04/19/21 escitalopram oxalate 20 mg tablet 20 mg PO DAILY 11/05/20 04/19/21 Previous Rx's Medication Instructions Recorded oxybutynin chloride 5 mg tablet 5 mg PO BID #180 tab 08/27/20 finasteride 5 mg tablet 5 mg PO HS #90 tab 01/20/21 simvastatin 40 mg tablet 40 mg PO HS #90 tab 01/20/21 doxazosin 8 mg tablet 4 mg PO QAM #45 tab 03/26/21 levothyroxine 75 mcg tablet 75 mcg PO QAM #90 tab 04/01/21 Results & Data (ED) Vital Signs Vital Signs - 24 hr 04/19/21 15:10 04/19/21 15:30 Temperature 36.5 C Temperature Source Oral Pulse Rate 80 Pulse Rate [Apical] 74 Pulse Rhythm Regular Pulse Rhythm [Apical] Regular Pulse Strength Normal Pulse Strength [Apical] Normal Respiratory Rate 20 18 Respiratory Effort / Characteristics Non-Labored Spontaneous Non-Labored Spontaneous Respiratory Depth Normal Normal Respiratory Pattern Regular Blood Pressure 164/71 H Blood Pressure [Left Arm] 152/72 H Blood Pressure Mean 102 Blood Pressure Mean [Left Arm] 98 Blood Pressure Position [Left Arm] Lying Pulse Oximetry 100 97 Oxygen Delivery Method Room Air Room Air Sepsis Recent Fever Within 48 Hours No Sepsis New/Unexplained Change in Mental Status No Sepsis Action Taken by Nursing No Action Required Laboratory Data Result diagrams: 04/19/21 15:25 04/19/21 15:25 Lab Results 04/19/21 04/19/21 04/19/21 Range/Units 15:23 15:25 15:25 WBC 4.98 (4.8-10.8) K/uL RBC 4.02 L (4.7-6.1) M/uL Hgb 12.2 L (14.0-18.0) g/dL Hct 35.9 L (42-52) % MCV 89.3 (80-100) fL MCH 30.3 (25-34) pg MCHC 34.0 (32-36) g/dL RDW Std Deviation 47.7 H (36.4-46.3) fL RDW Coeff of Esteban 14.4 (11.5-14.5) % Plt Count 164 (130-400) K/uL MPV 9.9 (7.4-10.4) fL Immature Gran % (Auto) 0.0 % Neut % (Auto) 63.0 % Lymph % (Auto) 17.5 % Moca % (Auto) 16.3 % Eos % (Auto) 2.8 % Baso % (Auto) 0.4 % Neut # (Auto) 3.14 (1.4-6.5) K/uL Lymph # (Auto) 0.87 L (1.2-3.4) K/uL Moca # (Auto) 0.81 H (0.11-0.59) K/uL Eos # (Auto) 0.14 (0-0.5) K/uL Baso # (Auto) 0.02 (0-0.2) K/uL Immature Gran # (Auto) 0.00 (0.00-0.02) K/uL PT 11.6 (9.0-12.0) Seconds INR 1.2 H (0.9-1.1) APTT 25.4 (21.0-31.0) Seconds PTT Ratio 1.0 Sodium (136-145) mmol/L Potassium (3.5-5.1) mmol/L Chloride (98-107) mmol/L Carbon Dioxide (21-32) mmol/L Anion Gap (3-11) BUN (6-23) mg/dl Creatinine (0.6-1.4) mg/dl Est Cr Clr Drug Dosing Est GFR ( Amer) ml/min Est GFR (Non-Af Amer) ml/min BUN/Creatinine Ratio (10-20) Glucose (70-99(Fasting)) mg/dl POC Glucose 131 H (70-99) mg/dl Calcium (8.5-10.1) mg/dl Magnesium (1.7-2.4) mg/dl Total Bilirubin (0.2-1.0) mg/dl AST (13-39) U/L ALT (7-52) U/L Alkaline Phosphatase (34-104) U/L Troponin I (0-0.04) ng/ml Total Protein (6.0-8.3) gm/dl Albumin (3.4-5.0) gm/dl Globulin (2.5-4.0) gm/dl Albumin/Globulin Ratio (0.9-2) 04/19/21 Range/Units 15:25 WBC (4.8-10.8) K/uL RBC (4.7-6.1) M/uL Hgb (14.0-18.0) g/dL Hct (42-52) % MCV (80-100) fL MCH (25-34) pg MCHC (32-36) g/dL RDW Std Deviation (36.4-46.3) fL RDW Coeff of Esteban (11.5-14.5) % Plt Count (130-400) K/uL MPV (7.4-10.4) fL Immature Gran % (Auto) % Neut % (Auto) % Lymph % (Auto) % Moca % (Auto) % Eos % (Auto) % Baso % (Auto) % Neut # (Auto) (1.4-6.5) K/uL Lymph # (Auto) (1.2-3.4) K/uL Moca # (Auto) (0.11-0.59) K/uL Eos # (Auto) (0-0.5) K/uL Baso # (Auto) (0-0.2) K/uL Immature Gran # (Auto) (0.00-0.02) K/uL PT (9.0-12.0) Seconds INR (0.9-1.1) APTT (21.0-31.0) Seconds PTT Ratio Sodium 137 (136-145) mmol/L Potassium 4.1 (3.5-5.1) mmol/L Chloride 102 (98-107) mmol/L Carbon Dioxide 32 (21-32) mmol/L Anion Gap 3 (3-11) BUN 13 (6-23) mg/dl Creatinine 0.84 (0.6-1.4) mg/dl Est Cr Clr Drug Dosing Not Reportable Est GFR ( Amer) 97.9 ml/min Est GFR (Non-Af Amer) 84.5 ml/min BUN/Creatinine Ratio 15.5 (10-20) Glucose 108 H (70-99(Fasting)) mg/dl POC Glucose (70-99) mg/dl Calcium 8.3 L (8.5-10.1) mg/dl Magnesium 1.9 (1.7-2.4) mg/dl Total Bilirubin 0.4 (0.2-1.0) mg/dl AST 13 (13-39) U/L ALT 10 (7-52) U/L Alkaline Phosphatase 44 (34-104) U/L Troponin I 0.03 (0-0.04) ng/ml Total Protein 5.5 L (6.0-8.3) gm/dl Albumin 3.3 L (3.4-5.0) gm/dl Globulin 2.2 L (2.5-4.0) gm/dl Albumin/Globulin Ratio 1.5 (0.9-2) Administered Medications Discontinued Medications Ioversol (Optiray 320 125ml) 120 ml IV ONCE ONE Stop: 04/19/21 15:21 Last Admin: 04/19/21 15:20 Dose: 120 ml Documented by: [id number] Imaging Data Radiologist's Impression: Head CT 04/19/21 14:59 CT SCAN OF THE BRAIN WITHOUT IV CONTRAST CLINICAL HISTORY: Strokelike symptoms. COMPARISON STUDY: CT of the brain dated 10/08/2015 and 06/18/2010. MRI of the brain dated 08/16/2015. TECHNIQUE: Unenhanced axial CT scan of the brain is performed from the vertex to the skull base. A dose lowering technique was utilized adhering to the principles of ALARA. CT DOSE: 642.68 mGycm FINDINGS: Brain parenchyma: There are age-related involutional changes noting mild subcortical and periventricular microangiopathic change. 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 Chronic lacunar infarcts are noted in the right thalamus in the right cerebellar hemisphere. There is no hemorrhage, mass effect, or evidence of acute territorial ischemia by CT criteria. Bright-white matter differentiation is preserved. No extra-axial fluid collection is seen. Ventricles, sulci, cisterns: Prominent secondary to involutional change. The septum pellucidum is located slightly to the right of midline. This is unchanged from prior studies dating back to 2010 and of doubtful significance. Intracranial vasculature: There is atherosclerotic calcification of the c avernous carotid and vertebral arteries. Calvarium: Unremarkable. Sinuses and mastoids: Moderate mucosal thickening is noted in the right maxillary antrum. There is near opacification of the left frontal sinus. Trace mucosal thickening is noted in the ethmoid and sphenoid sinuses. The mastoid air cells are well pneumatized. Cerumen is noted in the external auditory canals. Orbits: The bony orbits are grossly intact. IMPRESSION: There is no hemorrhage, mass effect, or evidence of acute territorial ischemia by CT criteria. ACT 112: Negative or not required by law. Electronically signed by: Lee Camacho M.D. 04/19/2021 3:21 PM Head CTA 04/19/21 14:59 CT ANGIOGRAM OF THE BRAIN; CT ANGIOGRAM OF THE NECK CLINICAL HISTORY: Strokelike symptoms. COMPARISON STUDY: Unenhanced CT of the brain performed the same day 04/19/2021. MR angiogram of the brain dated 09/18/2015. CT of the neck dated 11/05/2020. TECHNIQUE: Following the IV administration of 120 of Optiray 320, CT angiogram of the head and neck was performed from the aortic arch to the vertex. Images are reviewed in the axial, sagittal, and coronal planes. 3-D MIPS images are created and assessed. IV contrast was administered without complication. All measurements were calculated based on NASCET criteria. A dose lowering technique was utilized adhering to the principles of ALARA. CT DOSE: 1255.79 mGycm FINDINGS: Brain parenchyma: There is age-related involutional change noting mild subc ortical and periventricular microangiopathic disease. 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 Chronic lacunar infarcts are noted in the right thalamus and the right cerebellar hemisphere. There is no evidence of hemorrhage, mass effect, or acute territorial ischemia by CT criteria noting angiographic phase technique. There is no evidence of enhancing mass lesion on the angiogram phase images. The ventricles, sulci, and cisterns are prominent secondary to involutional change. Bright-white matter differentiation is preserved. No extra-axial fluid collection is seen. Thoracic aorta: There is atherosclerotic calcification of the thoracic aorta. Visualized portions of the thoracic aorta are normal in caliber. The aortic arch demonstrates standard 3-vessel anatomy. Right carotid arterial system: The right common carotid artery is widely patent. Advanced atherosclerotic plaque in the carotid bulb causes less than 50% luminal narrowing of the proximal right internal carotid artery. The remainder of the right internal carotid artery is widely patent, as is the right external carotid artery. Left carotid arterial system: The left common carotid artery is widely patent, as are the left internal and external carotid arteries. Calcified plaque is noted in the carotid bulb. Vertebral arteries: The vertebral arteries are widely patent bilaterally noting mild left-sided dominance. Subclavian arteries: Widely patent bilaterally. Intracranial vasculature: Atherosclerotic calcification is noted in the cavernou s carotid and vertebral arteries. There is origin of the right posterior cerebral artery. The right A1 segment is atretic. The internal carotid arteries are patent at the skull base, as are the anterior and middle cerebral arteries bilaterally. The vertebrobasilar system and posterior cerebral arteries are patent. There is at least moderate focal stenosis of the intracranial left vertebral artery at the skull base seen on image #28. The left vertebral artery is dominant. There is no aneurysm or focal vessel cut off seen throughout the intracranial circulation. Jugular veins: Patent bilaterally. Dural sinuses: Patent. Lung apices: Mild emphysematous change is noted at the apices. Upper lobe lung parenchyma is otherwise clear as imaged. Soft tissues: The visualized pharyngeal soft tissues are normal in appearance noting angiographic phase technique. The oropharyngeal airway appears widely patent. The salivary and thyroid glands are normal in appearance. No cervical lymphadenopathy is seen. Skeletal structures: The skeletal structures are osteopenic. The calvarium appears intact. The cervical spine is maintained noting multilevel spondylosis. No lytic or blastic lesion is seen. Orbits: The bony orbits are intact. Orbital contents are normal as visualized. Sinuses and mastoids: The paranasal sinuses are clear. The mastoid air cells are well pneumatized. Cerumen is noted in the external auditory canals. IMPRESSION: 1. There is no evidence of hemorrhage, mass effect, or acute territorial ischemia by CT criteria noting angiographic phase technique. 2. Atherosclerotic plaque causes less than 50% luminal narrowing of the proximal right internal carotid artery. 3. Otherwise unremarkable CT angiogram of the neck. 4. There is at least moderate focal stenosis of the intracranial left vertebral artery at the skull base. 5. Otherwise unremarkable CT angiogram of the brain. ACT 112: Negative or not required by law. Electronically signed by: Lee Camacho M.D. 04/19/2021 3:38 PM Neck CTA 04/19/21 14:59 CT ANGIOGRAM OF THE BRAIN; CT ANGIOGRAM OF THE NECK CLINICAL HISTORY: Strokelike symptoms. COMPARISON STUDY: Unenhanced CT of the brain performed the same day 04/19/2021. MR angiogram of the brain dated 09/18/2015. CT of the neck dated 11/05/2020. TECHNIQUE: Following the IV administration of 120 of Optiray 320, CT angiogram of the head and neck was performed from the aortic arch to the vertex. Images are reviewed in the axial, sagittal, and coronal planes. 3-D MIPS images are created and assessed. IV contrast was administered without complication. All measurements were calculated based on NASCET criteria. A dose lowering technique was utilized adhering to the principles of ALARA. CT DOSE: 1255.79 mGycm FINDINGS: Brain parenchyma: There is age-related involutional change noting mild subcortical and periventricular microangiopathic disease. 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 Chronic lacunar infarcts are noted in the right thalamus and the right cerebellar hemisphere. There is no evidence of hemorrhage, mass effect, or acute territorial ischemia by CT criteria noting angiographic phase technique. There is no evidence of enhancing mass lesion on the angiogram phase images. The ventricles, sulci, and cisterns are prominent secondary to involutional change. Bright-white matter differentiation is preserved. No extra-axial fluid collection is seen. Thoracic aorta: There is atherosclerotic calcification of the thoracic aorta. Visualized portions of the thoracic aorta are normal in caliber. The aortic arch demonstrates standard 3-vessel anatomy. Right carotid arterial system: The right common carotid artery is widely patent. Advanced atherosclerotic plaque in the carotid bulb causes less than 50% luminal narrowing of the proximal right internal carotid artery. The remainder of the right internal carotid artery is widely patent, as is the right external carotid artery. Left carotid arterial system: The left common carotid artery is widely patent, as are the left internal and external carotid arteries. Calcified plaque is noted in the carotid bulb. Vertebral arteries: The vertebral arteries are widely patent bilaterally noting mild left-sided dominance. Subclavian arteries: Widely patent bilaterally. Intracranial vasculature: Atherosclerotic calcification is noted in the cav ernous carotid and vertebral arteries. There is origin of the right posterior cerebral artery. The right A1 segment is atretic. The internal carotid arteries are patent at the skull base, as are the anterior and middle cerebral arteries bilaterally. The vertebrobasilar system and posterior cerebral arteries are patent. There is at least moderate focal stenosis of the intracranial left vertebral artery at the skull base seen on image #28. The left vertebral artery is dominant. There is no aneurysm or focal vessel cut off seen throughout the intracranial circulation. Jugular veins: Patent bilaterally. Dural sinuses: Patent. Lung apices: Mild emphysematous change is noted at the apices. Upper lobe lung parenchyma is otherwise clear as imaged. Soft tissues: The visualized pharyngeal soft tissues are normal in appearance noting angiographic phase technique. The oropharyngeal airway appears widely patent. The salivary and thyroid glands are normal in appearance. No cervical lymphadenopathy is seen. Skeletal structures: The skeletal structures are osteopenic. The calvarium appears intact. The cervical spine is maintained noting multilevel spondylosis. No lytic or blastic lesion is seen. Orbits: The bony orbits are intact. Orbital contents are normal as visualized. Sinuses and mastoids: The paranasal sinuses are clear. The mastoid air cells are well pneumatized. Cerumen is noted in the external auditory canals. IMPRESSION: 1. There is no evidence of hemorrhage, mass effect, or acute territorial ischemia by CT criteria noting angiographic phase technique. 2. Atherosclerotic plaque causes less than 50% luminal narrowing of the proximal right internal carotid artery. 3. Otherwise unremarkable CT angiogram of the neck. 4. There is at least moderate focal stenosis of the intracranial left vertebral artery at the skull base. 5. Otherwise unremarkable CT angiogram of the brain. ACT 112: Negative or not required by law. Electronically signed by: Lee Camacho M.D. 04/19/2021 3:38 PM Discharge Plan Visit Data Chief Complaint: Stroke/CVA Symptoms Stated Complaint: Stroke Alert ED Provider: Godfrey Panda Discharge Problem: Stroke Forms Stand Alone Forms: My [facility] Prescriptions Prescriptions: No Action oxybutynin chloride 5 mg tablet 5 mg PO BID Qty: 180 RF: 3 simvastatin 40 mg tablet 40 mg PO HS Qty: 90 RF: 3 finasteride 5 mg tablet 5 mg PO HS Qty: 90 RF: 3 doxazosin 8 mg tablet 4 mg PO QAM Qty: 45 RF: 3 levothyroxine 75 mcg tablet 75 mcg PO QAM Qty: 90 RF: 3 calcium carbonate-vitamin D3 500 mg(1,250mg) -125 unit tablet 1 tab PO QPM RF: 0 cholecalciferol (vitamin D3) 1,000 unit capsule 1,000 units PO QAM RF: 0 famotidine 20 mg tablet 20 mg PO QAM Qty: 180 RF: 0 aspirin [Aspirin Low Dose] 81 mg Tablet,Delayed Release (Dr/Ec) 81 mg PO QAM RF: 0 PreserVision AREDS-2 [id number] [id number] Capsule 1 tab PO BID RF: 0 perphenazine 4 mg Tablet See Rx Instructions .ROUTE .COMPLEX RF: 0 escitalopram oxalate 20 mg tablet 20 mg PO DAILY RF: 0 Referrals Referrals: Timo Chopra III, MD [Primary Care Provider] - Discharge Problem: Stroke Qualifiers: CVA mechanism: unspecified Qualified Code(s): I63.9 - Cerebral infarction, unspecified
[2021-04-19] MEDS ORDERED: OPTIRAY 320 125ml IV ONE (15:20)
--- NOTE | 2021-04-19 15:22 | CT Scan Report ---
CT SCAN OF THE BRAIN WITHOUT IV CONTRAST CLINICAL HISTORY: Strokelike symptoms. COMPARISON STUDY: CT of the brain dated 10/08/2015 and 06/18/2010. MRI of the brain dated 08/16/2015. TECHNIQUE: Unenhanced axial CT scan of the brain is performed from the vertex to the skull base. A do se lowering technique was utilized adhering to the principles of ALARA. CT DOSE: 642.68 mGycm FINDINGS: Brain parenchyma: There are age-related involutional changes noting mild subcortical and periventric ular microangiopathic change. 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 There is n o hemorrhage, mass effect, or evidence of acute territorial ischemia by CT criteria. Bright-white matte r differentiation is preserved. No extra-axial fluid collection is seen. Ventricles, sulci, cisterns: Prominent secondary to involutional change. The septum pellucidum is loc ated slightly to the right of midline. This is unchanged from prior studies dating back to 2010 and o f doubtful significance. Intracranial vasculature: There is atherosclerotic calcification of the cavernous carotid and vertebr al arteries. Calvarium: Unremarkable. Sinuses and mastoids: Moderate mucosal thickening is noted in the right maxillary antrum. There is ne ar opacification of the left frontal sinus. Trace mucosal thickening is noted in the ethmoid and sphe noid sinuses. The mastoid air cells are well pneumatized. Cerumen is noted in the external auditory c anals. Orbits: The bony orbits are grossly intact. IMPRESSION: There is no hemorrhage, mass effect, or evidence of acute territorial ischemia by CT rossi morales. ACT 112: Negative or not required by law. Electronically signed by: Lee Camacho M.D. 04/19/2021 3:21 PM
[2021-04-19 15:38] LABS: Basophils # (auto) 0.02 K/uL (0-0.2); Basophils % (auto) 0.4 %; Eosinophils # (auto) 0.14 K/uL (0-0.5); Eosinophils % (auto) 2.8 %; Hematocrit (blood only) 35.9 % (42-52); Hemoglobin 12.2 g/dL (14.0-18.0); Lymphocytes # (auto) 0.87 K/uL (1.2-3.4); Lymphocytes % (auto) 17.5 %; Mean Corpuscular Hemoglobin 30.3 pg (25-34); Mean Corpuscular Volume 89.3 fL (80-100); Mean Platelet Volume 9.9 fL (7.4-10.4); Monocytes # (auto) 0.81 K/uL (0.11-0.59); Monocytes % (auto) 16.3 %; Neutrophils # (auto) 3.14 K/uL (1.4-6.5); Platelet Count 164 K/uL (130-400); RDW Coefficient of Variation 14.4 % (11.5-14.5); RDW Standard Deviation 47.7 fL (36.4-46.3); Red Blood Count 4.02 M/uL (4.7-6.1); White Blood Count 4.98 K/uL (4.8-10.8)
--- NOTE | 2021-04-19 15:39 | CT Scan Report ---
CT ANGIOGRAM OF THE BRAIN; CT ANGIOGRAM OF THE NECK CLINICAL HISTORY: Strokelike symptoms. COMPARISON STUDY: Unenhanced CT of the brain performed the same day 04/19/2021. MR angiogram of the b rain dated 09/18/2015. CT of the neck dated 11/05/2020. TECHNIQUE: Following the IV administration of 120 of Optiray 320, CT angiogram of the head and neck w as performed from the aortic arch to the vertex. Images are reviewed in the axial, sagittal, and darian nal planes. 3-D MIPS images are created and assessed. IV contrast was administered without complicati on. All measurements were calculated based on NASCET criteria. A dose lowering technique was utilize d adhering to the principles of ALARA. CT DOSE: 1255.79 mGycm FINDINGS: Brain parenchyma: There is age-related involutional change noting mild subcortical and periventricula r microangiopathic disease. 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 [employer] abram lacunar infarcts are noted in the right thalamus and the right cerebellar hemisphere. There is no evidence of hemorrhage, mass effect, or acute territorial ischemia by CT criteria noting angiographi c phase technique. There is no evidence of enhancing mass lesion on the angiogram phase images. The v entricles, sulci, and cisterns are prominent secondary to involutional change. Bright-white matter diff erentiation is preserved. No extra-axial fluid collection is seen. Thoracic aorta: There is atherosclerotic calcification of the thoracic aorta. Visualized portions of the thoracic aorta are normal in caliber. The aortic arch demonstrates standard 3-vessel anatomy. Right carotid arterial system: The right common carotid artery is widely patent. Advanced atheroscler otic plaque in the carotid bulb causes less than 50% luminal narrowing of the proximal right internal carotid artery. The remainder of the right internal carotid artery is widely patent, as is the right external carotid artery. Left carotid arterial system: The left common carotid artery is widely patent, as are the left internal grinder tender al and external carotid arteries. Calcified plaque is noted in the carotid bulb. Vertebral arteries: The vertebral arteries are widely patent bilaterally noting mild left-sided domin ance. Subclavian arteries: Widely patent bilaterally. Intracranial vasculature: Atherosclerotic calcification is noted in the cavernous carotid and vertebr al arteries. There is origin of the right posterior cerebral artery. The right A1 segment is at retic. The internal carotid arteries are patent at the skull base, as are the anterior and middle cer ebral arteries bilaterally. The vertebrobasilar system and posterior cerebral arteries are patent. Th ere is at least moderate focal stenosis of the intracranial left vertebral artery at the skull base s een on image #28. The left vertebral artery is dominant. There is no aneurysm or focal vessel cut of f seen throughout the intracranial circulation. Jugular veins: Patent bilaterally. Dural sinuses: Patent. Lung apices: Mild emphysematous change is noted at the apices. Upper lobe lung parenchyma is otherwis e clear as imaged. Soft tissues: The visualized pharyngeal soft tissues are normal in appearance noting angiographic pha se technique. The oropharyngeal airway appears widely patent. The salivary and thyroid glands are nor mal in appearance. No cervical lymphadenopathy is seen. Skeletal structures: The skeletal structures are osteopenic. The calvarium appears intact. The cervic al spine is maintained noting multilevel spondylosis. No lytic or blastic lesion is seen. Orbits: The bony orbits are intact. Orbital contents are normal as visualized. Sinuses and mastoids: The paranasal sinuses are clear. The mastoid air cells are well pneumatized. Ce rumen is noted in the external auditory canals. IMPRESSION: 1. There is no evidence of hemorrhage, mass effect, or acute territorial ischemia by CT criteria noti ng angiographic phase technique. 2. Atherosclerotic plaque causes less than 50% luminal narrowing of the proximal right internal carot id artery. 3. Otherwise unremarkable CT angiogram of the neck. 4. 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 5. Otherwise unremarkable CT angiogram of the brain. ACT 112: Negative or not required by law. Electronically signed by: Lee Camacho M.D. 04/19/2021 3:38 PM
[2021-04-19 15:48] LABS: INR 1.2 (0.9-1.1); Partial Thromboplastin Time 25.4 Seconds (21.0-31.0); Prothrombin Time 11.6 Seconds (9.0-12.0)
[2021-04-19 16:00] LABS: Troponin I 0.03 ng/ml (0-0.04)
[2021-04-19 16:02] LABS: Alanine Aminotransferase 10 U/L (7-52); Albumin Globulin Ratio 1.5 (0.9-2); Albumin Level 3.3 gm/dl (3.4-5.0); Alkaline Phosphatase 44 U/L (34-104); Anion Gap 3 (3-11); Aspartate Aminotransferase 13 U/L (13-39); BUN Creatinine Ratio 15.5 (10-20); Bilirubin,Total 0.4 mg/dl (0.2-1.0); Blood Urea Nitrogen 13 mg/dl (6-23); Calcium 8.3 mg/dl (8.5-10.1); Carbon Dioxide 32 mmol/L (21-32); Chloride 102 mmol/L (98-107); Est GFR (African American) 97.9 ml/min; Est GFR (Non-African American) 84.5 ml/min; Globulin 2.2 gm/dl (2.5-4.0); Glucose 108 mg/dl (70-99(Fasting)); Magnesium 1.9 mg/dl (1.7-2.4); Potassium 4.1 mmol/L (3.5-5.1); Sodium 137 mmol/L (136-145); Total Protein 5.5 gm/dl (6.0-8.3)
[2021-04-19] MEDS ORDERED: ASPIRIN CHEW 324 MG PO STA (16:09)
--- NOTE | 2021-04-19 17:06 | History & Physical Report ---
Date of Service April 19, 2021 Assessment & Plan (1) Stroke-like symptoms: Plan: - Admit to monitored bed under hospitalist service for suspected ischemic CVA, NIH score of 6 - Update echocardiogram - Neurochecks q2h - Consult neurology, appreciate recommendations - Dual antiplatelet therapy: add Plavix to his aspirin - Fasting lipid panel in AM - Serial troponins - Permissive hypertension in setting of suspected ischemic CVA - Repeat CT w/o contrast in 24-48 hours - PT/OT eval (2) SSS (sick sinus syndrome): Plan: - s/p PPM - h/o paroxysmal afib/flutter, not on any ACT therapy, currently paced (3) Hypercholesteremia: Plan: - Update fasting lipid profile - Continue statin therapy (4) Hypothyroidism: Plan: - Continue Synthroid - Update TSH if not already done (5) Aortic aneurysm: Plan: - Last noted to be 4.5cm (6) Hypertension: Plan: - Not currently on any antihypertensives (7) Dementia: Plan: - Documented as a problem but he lives independently at the [facility] - Takes no dementia medications - He is A&O (8) BPH w urinary obs/LUTS: Plan: - No complaints presently, continue doxazosin, finasteride, oxybutynin Plan: Interventions as noted above. Plan of care has been d/w Dr. Hall. History of Present Illness Chief Complaint: stroke symptoms Primary Care Provider: Timo Chopra MD Mr. Heredia is a pleasant 76 yo WM with a pmhx of anemia, HLD, hypothyroidism, AAA, HTN, dementia, and PPM d/t SSS, and remote h/o hemorrhagic CVA in 2006 who presented from the [facility] due to stroke-like symptoms. Pt was last seen normal yesterday evening. When he came down this afternoon for lunch, he was noted to have right sided facial droop and garbled speech. Subsequently, EMS was summoned and he was transported as a stroke-alert to the ER here at [facility]. Pt was assessed by ED physician, given NIH stroke score of 2 and had telehealth stroke consult with [facility], Dr. Johnston. Neurologist felt that pt was suffering ischemic event versus Stevenson's palsy and felt that he warranted admission but was not a candidate for thrombolytics due to his history of hemorrhagic CVA as well as unknown onset of symptoms. Currently, pt is awake, alert and oriented x3. His daughter is at bedside. He offers no complaints, denies chest pain, dyspnea, n/v/d, f/c, headache, or gu complaints. Initial head CT performed in ED is negative for hemorrhagic or stroke. CTA head/neck does not demonstrate any evidence of large vessel occlusion. He was medicated in the ED with a dose of ASA. He is not a candidate for MRI d/t pacemaker that is not compatible. He will be admitted under the medical service for ongoing evaluation and care. Allergies Allergy/AdvReac Type Severity Reaction Status Date / Time codeine AdvReac Mild MENTAL Verified 04/19/21 15:22 INCOHERENCE hydrocodone AdvReac Mild CONFUSION,I Verified 04/19/21 15:22 NCOHERENCE warfarin AdvReac Mild INTERFERES Verified 04/19/21 15:22 WITH OTHER MEDS oxycodone AdvReac CONFUSION,I Verified 04/19/21 15:22 NCOHERENCE Home Medications Medication Instructions Recorded Confirmed Type calcium carbonate 500 mg-vitamin 1 tab PO QPM tab 10/15/18 04/19/21 History D3 3.125 mcg (125 unit) tablet cholecalciferol (vitamin D3) 25 1,000 units PO QAM cap 10/15/18 04/19/21 History mcg (1,000 unit) capsule aspirin 81 mg tablet,delayed 81 mg PO QAM 10/28/18 04/19/21 History release (Aspirin Low Dose) vit C 250 mg-vit E 90 mg-zinc 40 1 tab PO BID 10/28/18 04/19/21 History mg-copper 1 [id number] capsule (PreserVision AREDS-2) famotidine 20 mg tablet 20 mg PO QAM #180 tab 01/03/20 04/19/21 History perphenazine 4 mg tablet See Rx Instructions .ROUTE .COMPLEX 06/05/20 04/19/21 History oxybutynin chloride 5 mg tablet 5 mg PO BID #180 tab 08/27/20 04/19/21 Rx escitalopram oxalate 20 mg tablet 20 mg PO DAILY 11/05/20 04/19/21 History finasteride 5 mg tablet 5 mg PO HS #90 tab 01/20/21 04/19/21 Rx simvastatin 40 mg tablet 40 mg PO HS #90 tab 01/20/21 04/19/21 Rx doxazosin 8 mg tablet 4 mg PO QAM #45 tab 03/26/21 04/19/21 Rx levothyroxine 75 mcg tablet 75 mcg PO QAM #90 tab 04/01/21 04/19/21 Rx Past Med/Surg History Medical History Anemia Anxiety Aortic aneurysm Atrial fibrillation Chronic back pain CVA (cerebral vascular accident) Depression GERD (gastroesophageal reflux disease) Gout History of colon polyps Hyperlipidemia Hypertension Hypothyroidism Spinal stenosis Surgical History History of bilateral carpal tunnel release History of colonoscopy History of elbow surgery History of esophagogastroduodenoscopy (EGD) History of left shoulder replacement History of tooth extraction History of total left knee replacement (TKR) History of total right knee replacement (TKR) Pacemaker Family History Brother Prostate cancer Father Myocardial infarction Family/Other Cardiac disorder Stroke Hypertension Sister Parkinson disease Other No family history of adverse response to anesthesia Denies family history of Ovarian cancer Breast cancer Colorectal cancer Social History Smoking Status: Never smoker Second Hand Exposure: No; Hx Alcohol Use: No Hx Substance Use: No Preferred Language: Cypriot Communication Ability: Effective Visual Impairment: No Limitations Hearing Ability: Normal Pearl Glue Operator Required: No Beliefs That Will Affect Care: None marital status: Single Current Living Situation: Shelter Current Living Situation Comment: [facility] current occupational status: retired Feels Safe at Home: Yes Dental Care, Regularly: Yes Physical Activity Frequency: Daily Seatbelt Use: always Assistive Devices: Cane Review of Systems Review of Systems: CONSTITUTIONAL: Denies weight loss/gain, fever and chills, fatigue, malaise, generalized weakness. HEENT: Denies changes in vision and hearing. RESPIRATORY: Denies SOB, cough, wheezing. CV: Denies palpitations, CP, lower extremity edema, orthopnea, PND. GI: Denies abdominal pain, nausea, vomiting and diarrhea. : Denies dysuria and urinary frequency, urgency, hesitancy. MUSCULOSKELETAL: Denies myalgia and joint pain. SKIN: Denies rash and pruritus. NEUROLOGICAL: +facial droop and garbled speech. R arm weakness. PSYCHIATRIC: Mild dementia. Denies recent changes in mood. Denies anxiety and depression. Physical Exam Physical Exam: GENERAL: 76 yo well-developed, well-nourished elderly WM. NAD. EYES: EOMI. PERRLA. Anicteric. HENT: Moist mucous membranes. No scleral icterus. No cervical lymphadenopathy. LUNGS: Clear to auscultation bilaterally. No W/R/R. CARDIOVASCULAR: Regular rate and rhythm. ABDOMEN: Soft, non-tender and non-distended. BS normal x 4 quad. EXTREMITIES: No edema. Non-tender. Peripheral pulses +2/4. NEUROLOGIC: A&O x3. R facial droop observed. +pronator drift RUE. Dysarthria. PSYCHIATRIC: Cooperative. Appropriate mood and affect. SKIN: Warm, dry, intact. No rashes or lesions. Results & Data Results & Data ([facility]) Vital Signs (Past 12 Hours) Vital Signs Temp Pulse Pulse Resp BP BP Pulse Ox 04/19/21 15:30 74 18 152/72 H 97 04/19/21 15:10 36.5 C 80 20 164/71 H 100 Laboratory Results 04/19/21 15:25 04/19/21 15:[address] 04/19/21 14:59 CT SCAN OF THE BRAIN WITHOUT IV CONTRAST CLINICAL HISTORY: Strokelike symptoms. COMPARISON STUDY: CT of the brain dated 10/08/2015 and 06/18/2010. MRI of the brain dated 08/16/2015. TECHNIQUE: Unenhanced axial CT scan of the brain is performed from the vertex to the skull base. A dose lowering technique was utilized adhering to the principles of ALARA. CT DOSE: 642.68 mGycm FINDINGS: Brain parenchyma: There are age-related involutional changes noting mild subcortical and periventricular microangiopathic change. 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 Chronic lacunar infarcts are noted in the right thalamus in the right cerebellar hemisphere. There is no hemorrhage, mass effect, or evidence of acute territorial ischemia by CT criteria. Bright-white matter differentiation is preserved. No extra-axial fluid collection is seen. Ventricles, sulci, cisterns: Prominent secondary to involutional change. The septum pellucidum is located slightly to the right of midline. This is unchanged from prior studies dating back to 2010 and of doubtful significance. Intracranial vasculature: There is atherosclerotic calcification of the cavernous carotid and vertebral arteries. Calvarium: Unremarkable. Sinuses and mastoids: Moderate mucosal thickening is noted in the right maxillary antrum. There is near opacification of the left frontal sinus. Trace mucosal thickening is noted in the ethmoid and sphenoid sinuses. The mastoid air cells are well pneumatized. Cerumen is noted in the external auditory canals. Orbits: The bony orbits are grossly intact. IMPRESSION: There is no hemorrhage, mass effect, or evidence of acute territorial ischemia by CT criteria. ACT 112: Negative or not required by law. Electronically signed by: Lee Camacho M.D. 04/19/2021 3:21 PM Head CTA 04/19/21 14:59 CT ANGIOGRAM OF THE BRAIN; CT ANGIOGRAM OF THE NECK CLINICAL HISTORY: Strokelike symptoms. COMPARISON STUDY: Unenhanced CT of the brain performed the same day 04/19/2021. MR angiogram of the brain dated 09/18/2015. CT of the neck dated 11/05/2020. TECHNIQUE: Following the IV administration of 120 of Optiray 320, CT angiogram of the head and neck was performed from the aortic arch to the vertex. Images are reviewed in the axial, sagittal, and coronal planes. 3-D MIPS images are created and assessed. IV contrast was administered without complication. All measurements were calculated based on NASCET criteria. A dose lowering technique was utilized adhering to the principles of ALARA. CT DOSE: 1255.79 mGycm FINDINGS: Brain parenchyma: There is age-related involutional change noting mild subcortical and periventricular microangiopathic disease. 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 Chronic lacunar infarcts are noted in the right thalamus and the right cerebellar hemisphere. There is no evidence of hemorrhage, mass effect, or acute territorial ischemia by CT criteria noting angiographic phase technique. There is no evidence of enhancing mass lesion on the angiogram phase images. The ventricles, sulci, and cisterns are prominent secondary to involutional change. Bright-white matter different iation is preserved. No extra-axial fluid collection is seen. Thoracic aorta: There is atherosclerotic calcification of the thoracic aorta. Visualized portions of the thoracic aorta are normal in caliber. The aortic arch demonstrates standard 3-vessel anatomy. Right carotid arterial system: The right common carotid artery is widely patent. Advanced atherosclerotic plaque in the carotid bulb causes less than 50% luminal narrowing of the proximal right internal carotid artery. The remainder of the right internal carotid artery is widely patent, as is the right external carotid artery. Left carotid arterial system: The left common carotid artery is widely patent, as are the left internal and external carotid arteries. Calcified plaque is noted in the carotid bulb. Vertebral arteries: The vertebral arteries are widely patent bilaterally noting mild left-sided dominance. Subclavian arteries: Widely patent bilaterally. Intracranial vasculature: Atherosclerotic calcification is noted in the cavernous carotid and vertebral arteries. There is origin of the right posterior cerebral artery. The right A1 segment is atretic. The internal carotid arteries are patent at the skull base, as are the anterior and middle cerebral arteries bilaterally. The vertebrobasilar system and posterior cerebral arteries are patent. There is at least moderate focal stenosis of the intracranial left vertebral artery at the skull base seen on image #28. The left vertebral artery is dominant. There is no aneurysm or focal vessel cut off seen throughout the intracranial circulation. Jugular veins: Patent bilaterally. Dural sinuses: Patent. Lung apices: Mild emphysematous change is noted at the apices. Upper lobe lung parenchyma is otherwise clear as imaged. Soft tissues: The visualized pharyngeal soft tissues are normal in appearance noting angiographic phase technique. The oropharyngeal airway appears widely patent. The salivary and thyroid glands are normal in appearance. No cervical lymphadenopathy is seen. Skeletal structures: The skeletal structures are osteopenic. The calvarium appears intact. The cervical spine is maintained noting multilevel spondylosis. No lytic or blastic lesion is seen. Orbits: The bony orbits are intact. Orbital contents are normal as visualized. Sinuses and mastoids: The paranasal sinuses are clear. The mastoid air cells are well pneumatized. Cerumen is noted in the external auditory canals. IMPRESSION: 1. There is no evidence of hemorrhage, mass effect, or acute territorial ischemia by CT criteria noting angiographic phase technique. 2. Atherosclerotic plaque causes less than 50% luminal narrowing of the proximal right internal carotid artery. 3. Otherwise unremarkable CT angiogram of the neck. 4. There is at least moderate focal stenosis of the intracranial left vertebral artery at the skull base. 5. Otherwise unremarkable CT angiogram of the brain. ACT 112: Negative or not required by law. Electronically signed by: Lee Camacho M.D. 04/19/2021 3:38 PM Neck CTA 04/19/21 14:59 CT ANGIOGRAM OF THE BRAIN; CT ANGIOGRAM OF THE NECK CLINICAL HISTORY: Strokelike symptoms. COMPARISON STUDY: Unenhanced CT of the brain performed the same day 04/19/2021. MR angiogram of the brain dated 09/18/2015. CT of the neck dated 11/05/2020. TECHNIQUE: Following the IV administration of 120 of Optiray 320, CT angiogram of the head and neck was performed from the aortic arch to the vertex. Images are reviewed in the axial, sagittal, and coronal planes. 3-D MIPS images are created and assessed. IV contrast was administered without complication. All measurements were calculated based on NASCET criteria. A dose lowering technique was utilized adhering to the principles of ALARA. CT DOSE: 1255.79 mGycm FINDINGS: Brain parenchyma: There is age-related involutional change noting mild subcortical and periventricular microangiopathic disease. Left cerebellar ence phalomalacia is consistent with a remote insult. Chronic lacunar infarcts are noted in the right thalamus and the right cerebellar hemisphere. There is no evidence of hemorrhage, mass effect, or acute territorial ischemia by CT criteria noting angiographic phase technique. There is no evidence of enhancing mass lesion on the angiogram phase images. The ventricles, sulci, and cisterns are prominent secondary to involutional change. Bright-white matter differentiation is preserved. No extra-axial fluid collection is seen. Thoracic aorta: There is atherosclerotic calcification of the thoracic aorta. Visualized portions of the thoracic aorta are normal in caliber. The aortic arch demonstrates standard 3-vessel anatomy. Right carotid arterial system: The right common carotid artery is widely patent. Advanced atherosclerotic plaque in the carotid bulb causes less than 50% luminal narrowing of the proximal right internal carotid artery. The remainder of the right internal carotid artery is widely patent, as is the right external carotid artery. Left carotid arterial system: The left common carotid artery is widely patent, as are the left internal and external carotid arteries. Calcified plaque is noted in the carotid bulb. Vertebral arteries: The vertebral arteries are widely patent bilaterally noting mild left-sided dominance. Subclavian arteries: Widely patent bilaterally. Intracranial vasculature: Atherosclerotic calcification is noted in the cavernous carotid and vertebral arteries. There is origin of the right posterior cerebral artery. The right A1 segment is atretic. The internal carotid arteries are patent at the skull base, as are the anterior and middle cerebral arteries bilaterally. The vertebrobasilar system and posterior cerebral arteries are patent. There is at least moderate focal stenosis of the intracranial left vertebral artery at the skull base seen on image #28. The left vertebral artery is dominant. There is no aneurysm or focal vessel cut off seen throughout the intracranial circulation. Jugular veins: Patent bilaterally. Dural sinuses: Patent. Lung apices: Mild emphysematous change is noted at the apices. Upper lobe lung p arenchyma is otherwise clear as imaged. Soft tissues: The visualized pharyngeal soft tissues are normal in appearance noting angiographic phase technique. The oropharyngeal airway appears widely pat ent. The salivary and thyroid glands are normal in appearance. No cervical lymphadenopathy is seen. Skeletal structures: The skeletal structures are osteopenic. The calvarium appears intact. The cervical spine is maintained noting multilevel spondylosis. No lytic or blastic lesion is seen. Orbits: The bony orbits are intact. Orbital contents are normal as visualized. Sinuses and mastoids: The paranasal sinuses are clear. The mastoid air cells are well pneumatized. Cerumen is noted in the external auditory canals. IMPRESSION: 1. There is no evidence of hemorrhage, mass effect, or acute territorial ischemia by CT criteria noting angiographic phase technique. 2. Atherosclerotic plaque causes less than 50% luminal narrowing of the proximal right internal carotid artery. 3. Otherwise unremarkable CT angiogram of the neck. 4. There is at least moderate focal stenosis of the intracranial left vertebral artery at the skull base. 5. Otherwise unremarkable CT angiogram of the brain. ACT 112: Negative or not required by law. Electronically signed by: Lee Camacho M.D. 04/19/2021 3:38 PM ECG Additional Comments: paced, no acute changes, rate 70s Code Status & VTE Plan Code Status Full code PG Care Time/CCT Total # of Minutes Spent Total Time Spent with Patient: Total time spent is greater than 50% in coordination of care (as documented) at patient's floor/unit and/or counseling patient: Coding Level of Care Code 99535 Initial Inpt Care Lvl 3 Diagnoses Stroke-like symptoms R29.90 SSS (sick sinus syndrome) I49.5 Hypercholesteremia E78.00 Hypothyroidism E03.9 Aortic aneurysm I71.9 Hypertension I10 Hypertension type: essential hypertension Dementia F03.90 BPH w urinary obs/LUTS N40.1; N13.8 (1) Hypertension Hypertension type: essential hypertension Qualified Code(s): I10 - Essential (primary) hypertension
[2021-04-19] MEDS ORDERED: PERPHENAZINE 4 MG SCH (17:42)
[2021-04-19] MEDS ORDERED: ALUMINUM/MAGNESIUM SUSP 30 ML UDC PO PRN (17:42)
[2021-04-19] MEDS ORDERED: ONDANSETRON INJ 2 MG/ML 2 ML VIAL IV PRN (17:42)
[2021-04-19] MEDS ORDERED: ACETAMINOPHEN 325 MG TAB PO PRN (17:42)
[2021-04-19] MEDS ORDERED: MAGNESIUM HYDROXIDE SUSP 30 ML UDC PO PRN (17:42)
[2021-04-19 19:02] LABS: Appearance Urine Clear (Clear); Bilirubin Urine Negative (Negative); Blood Urine Negative (Negative); Color Urine Yellow; Glucose Urine UA Negative (Negative); Ketones Urine Negative (Negative); Leukocyte Esterase Urine Negative (Negative); Nitrite Urine Negative (Negative); Protein Urine Negative (Negative); Specific Gravity Urine > 1.045 (1.000-1.030); Urobilinogen Urine Negative (Negative)
[2021-04-19] MEDS ORDERED: FINASTERIDE 5 MG TAB PO SCH (21:00)
[2021-04-19] MEDS: CLOPIDOGREL BISULFATE 75 MG TAB PO SCH (21:43)
[2021-04-19] MEDS: OXYBUTYNIN CHLORIDE 5 MG TAB PO SCH (22:22)
[2021-04-19] MEDS: SIMVASTATIN 40 MG TAB PO SCH (22:23)
[2021-04-20 07:57] LABS: Chol HDL Ratio 3.5 (0-5)
[2021-04-20] MEDS: OXYBUTYNIN CHLORIDE 5 MG TAB PO SCH (08:41)
[2021-04-20] MEDS ORDERED: ASPIRIN 81 MG ECTAB PO SCH (09:00)
[2021-04-20] MEDS ORDERED: LEVOTHYROXINE SODIUM 75 MCG TABLET PO SCH (09:00)
[2021-04-20] MEDS ORDERED: CHOLECALCIFEROL 1,000 UNITS 25 MCG TAB PO SCH (09:00)
[2021-04-20] MEDS ORDERED: ENOXAPARIN INJ 40 MG/0.4 ML SYR SQ SCH (09:00)
[2021-04-20] MEDS ORDERED: DOXAZosin MESYLATE 4 MG TAB PO SCH (09:00)
[2021-04-20] MEDS ORDERED: FAMOTIDINE 20 MG TAB PO SCH (09:00)
[2021-04-20] MEDS ORDERED: PERPHENAZINE 2 MG TABLET PO SCH ×2 (09:00→21:00)
[2021-04-20] MEDS ORDERED: DOXAZosin MESYLATE TAB 2 MG TAB PO SCH (09:00)
[2021-04-20] MEDS ORDERED: ESCITALOPRAM OXALATE 20 MG TAB PO SCH (09:00)
[2021-04-20] MEDS: CLOPIDOGREL BISULFATE 75 MG TAB PO SCH (10:12)
--- NOTE | 2021-04-20 11:07 | Electrocardiogram Report ---
Test Reason : Blood Pressure : / mmHG Vent. Rate : 076 BPM Atrial Rate : 042 BPM P-R Int : 232 ms QRS Dur : 098 ms QT Int : 416 ms P-R-T Axes : 061 026 035 degrees QTc Int : 468 ms Atrial-paced rhythm with prolonged AV conduction Cannot rule out Anterior infarct (cited on or before 05-NOV-2020)vs lead placement Abnormal ECG When compared with ECG of 05-NOV-2020 14:33, No significant change was found Confirmed by Mark Patel ([id number]) on 04/20/2021 11:07:39 AM Referred By: Confirmed By:Mark Patel
--- NOTE | 2021-04-20 12:19 | Hospitalist Progress Note ---
Date of Service April 20, 2021 Assessment & Plan (1) Stroke-like symptoms: Plan: - Admit to monitored bed under hospitalist service for suspected ischemic CVA, NIH score of 6 - Update echocardiogram - Neurochecks q2h - Consult neurology, appreciate recommendations - Dual antiplatelet therapy: add Plavix to his aspirin - Fasting lipid panel in AM - Serial troponins - Permissive hypertension in setting of suspected ischemic CVA - Repeat CT w/o contrast in 24-48 hours - PT/OT eval (2) SSS (sick sinus syndrome): Plan: - s/p PPM - h/o paroxysmal afib/flutter, not on any ACT therapy, currently paced (3) Hypercholesteremia: Plan: - Update fasting lipid profile - Continue statin therapy (4) Hypothyroidism: Plan: - Continue Synthroid - Update TSH if not already done (5) Aortic aneurysm: Plan: - Last noted to be 4.5cm (6) Hypertension: Plan: - Not currently on any antihypertensives (7) Dementia: Plan: - Documented as a problem but he lives independently at the [facility] - Takes no dementia medications - He is A&O (8) BPH w urinary obs/LUTS: Plan: - No complaints presently, continue doxazosin, finasteride, oxybutynin Plan: Interventions as noted above. Plan of care has been d/w Dr. Hall. Admission and Anticipated Discharge Date Admission Date: April 19, 2021 Subjective Patient seen on rounds this morning. He was hospitalized for stroke-symptoms yesterday after staff at the [facility] noted right facial droop. He reports feeling better today. Facial droop and speech both have improved. He reports slight numbness/weakness in right arm but also feels that has improved. Denies headache, vision changes, chest pain, dyspnea, n/v/d. Review of Systems Review of Systems: CONSTITUTIONAL: Denies weight loss/gain, fever and chills, fatigue, malaise, generalized weakness. HEENT: Denies changes in vision and hearing. RESPIRATORY: Denies SOB, cough, wheezing. CV: Denies palpitations, CP, lower extremity edema, orthopnea, PND. GI: Denies abdominal pain, nausea, vomiting and diarrhea. : Denies dysuria and urinary frequency, urgency, hesitancy. MUSCULOSKELETAL: Denies myalgia and joint pain. SKIN: Denies rash and pruritus. NEUROLOGICAL: +facial droop and garbled speech (improved). R arm weakness (improved). PSYCHIATRIC: Mild dementia. Denies recent changes in mood. Denies anxiety and depression. Physical Exam Physical Exam: GENERAL: 76 yo well-developed, well-nourished elderly WM. NAD. LUNGS: Clear to auscultation bilaterally. No W/R/R. CARDIOVASCULAR: Regular rate and rhythm. ABDOMEN: Soft, non-tender and non-distended. BS normal x 4 quad. EXTREMITIES: No edema. Non-tender. Peripheral pulses +2/4. NEUROLOGIC: A&O x3. PSYCHIATRIC: Cooperative. Appropriate mood and affect. SKIN: Warm, dry, intact. No rashes or lesions. Results & Data Results & Data ([facility]) Vital Signs (Past 12 Hours) Vital Signs Temp Pulse Pulse Resp BP Pulse Ox 04/20/21 11:00 37.1 C 77 13 149/76 H 95 04/20/21 07:00 36.4 C L 77 76 16 146/78 H 96 04/20/21 02:14 36.8 C 90 20 147/79 H 93 04/20/21 00:53 88 168/81 H PG Care Time/CCT Total # of Minutes Spent Total Time Spent with Patient: Total time spent is greater than 50% in coordination of care (as documented) at patient's floor/unit and/or counseling patient: Coding Diagnoses Stroke-like symptoms R29.90 SSS (sick sinus syndrome) I49.5 Hypercholesteremia E78.00 Hypothyroidism E03.9 Aortic aneurysm I71.9 Hypertension I10 Hypertension type: essential hypertension Dementia F03.90 BPH w urinary obs/LUTS N40.1; N13.8 (1) Hypertension Hypertension type: essential hypertension Qualified Code(s): I10 - Essential (primary) hypertension
--- NOTE | 2021-04-20 15:20 | Discharge Summary ---
Date of Service April 20, 2021 Admission HPI Per Admitting Provider Mr. Heredia is a pleasant 76 yo WM with a pmhx of anemia, HLD, hypothyroidism, AAA, HTN, dementia, and PPM d/t SSS, and remote h/o hemorrhagic CVA in 2006 who presented from the [facility] due to stroke-like symptoms. Pt was last seen normal yesterday evening. When he came down this afternoon for lunch, he was noted to have right sided facial droop and garbled speech. Subsequently, EMS was summoned and he was transported as a stroke-alert to the ER here at [facility]. Pt was assessed by ED physician, given NIH stroke score of 2 and had telehealth stroke consult with [facility], Dr. Johnston. Neurologist felt that pt was suffering ischemic event versus Stevenson's palsy and felt that he warranted admission but was not a candidate for thrombolytics due to his history of hemorrhagic CVA as well as unknown onset of symptoms. Currently, pt is awake, alert and oriented x3. His daughter is at bedside. He offers no complaints, denies chest pain, dyspnea, n/v/d, f/c, headache, or gu complaints. Initial head CT performed in ED is negative for hemorrhagic or stroke. CTA head/neck does not demonstrate any evidence of large vessel occlusion. He was medicated in the ED with a dose of ASA. He is not a candidate for MRI d/t pacemaker that is not compatible. He will be admitted under the medical service for ongoing evaluation and care. Principal Diagnosis Stroke-like symptoms, now resolved, suspect TIA Discharge Exam GENERAL: 76 yo well-developed, well-nourished elderly WM. NAD. LUNGS: Clear to auscultation bilaterally. No accessory muscle use. No W/R/R. CARDIOVASCULAR: Regular rate and rhythm. No M/G/R. No JVD. ABDOMEN: Soft, non-tender and non-distended. BS normal x 4 quad. EXTREMITIES: No edema. Non-tender. Peripheral pulses +2/4. NEUROLOGIC: A&O x3. No focal neurological deficits. CN II-XII grossly intact. PSYCHIATRIC: Cooperative. Appropriate mood and affect. SKIN: Warm, dry, intact. No rashes or lesions. Discharge Data Allergies Allergy/AdvReac Type Severity Reaction Status Date / Time codeine AdvReac Mild MENTAL Verified 04/19/21 15:22 INCOHERENCE hydrocodone AdvReac Mild CONFUSION,I Verified 04/19/21 15:22 NCOHERENCE warfarin AdvReac Mild INTERFERES Verified 04/19/21 15:22 WITH OTHER MEDS oxycodone AdvReac CONFUSION,I Verified 04/19/21 15:22 NCOHERENCE Consultations 04/19/21 16:20 ED Decision to Admit Stat 04/19/21 17:42 Consult Neurology Routine -- cancelled as symptoms resolved, will make referral as outpatient 04/20/21 15:11 Consult [facility] multimedia manager Routine -- to set up referral as outpatient to neurology Ordered Studies 04/19/21 15:25 04/19/21 15:[address] 04/19/21 14:59 CT SCAN OF THE BRAIN WITHOUT IV CONTRAST CLINICAL HISTORY: Strokelike symptoms. COMPARISON STUDY: CT of the brain dated 10/08/2015 and 06/18/2010. MRI of the bra in dated 08/16/2015. TECHNIQUE: Unenhanced axial CT scan of the brain is performed from the vertex to the skull base. A dose lowering technique was utilized adhering to the principles of ALARA. CT DOSE: 642.68 mGycm FINDINGS: Brain parenchyma: There are age-related involutional changes noting mild subcortical and periventricular microangiopathic change. 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 Chronic lacunar infarcts are noted in the right thalamus in the right cerebellar hemisphere. There is no hemorrhage, mass effect, or evidence of acute territorial ischemia by CT criteria. Bright-white matter differentiation is preserved. No extra-axial fluid collection is seen. Ventricles, sulci, cisterns: Prominent secondary to involutional change. The septum pellucidum is located slightly to the right of midline. This is unchanged from prior studies dating back to 2010 and of doubtful significance. Intracranial vasculature: There is atherosclerotic calcification of the cavernous carotid and vertebral arteries. Calvarium: Unremarkable. Sinuses and mastoids: Moderate mucosal thickening is noted in the right maxillary antrum. There is near opacification of the left frontal sinus. Trace mucosal thickening is noted in the ethmoid and sphenoid sinuses. The mastoid air cells are well pneumatized. Cerumen is noted in the external auditory canals. Orbits: The bony orbits are grossly intact. IMPRESSION: There is no hemorrhage, mass effect, or evidence of acute territorial ischemia by CT criteria. ACT 112: Negative or not required by law. Electronically signed by: Lee Camacho M.D. 04/19/2021 3:21 PM Head CTA 04/19/21 14:59 CT ANGIOGRAM OF THE BRAIN; CT ANGIOGRAM OF THE NECK CLINICAL HISTORY: Strokelike symptoms. COMPARISON STUDY: Unenhanced CT of the brain performed the same day 04/19/2021. MR angiogram of the brain dated 09/18/2015. CT of the neck dated 11/05/2020. TECHNIQUE: Following the IV administration of 120 of Optiray 320, CT angiogram of the head and neck was performed from the aortic arch to the vertex. Images are reviewed in the axial, sagittal, and coronal planes. 3-D MIPS images are created and assessed. IV contrast was administered without complication. All measurements were calculated based on NASCET criteria. A dose lowering technique was utilized adhering to the principles of ALARA. CT DOSE: 1255.79 mGycm FINDINGS: Brain parenchyma: There is age-related involutional change noting mild subcortical and periventricular microangiopathic disease. 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 Chronic lacunar infarcts are noted in the right thalamus and the right cerebellar hemisphere. There is no evidence of hemorrhage, mass effect, or acute territorial ischemia by CT criteria noting angiographic phase technique. There is no evidence of enhancing mass lesion on the angiogram phase images. The ventricles, sulci, and cisterns are prominent secondary to involutional change. Bright-white matter differentiation is preserved. No extra-axial fluid collection is seen. Thoracic aorta: There is atherosclerotic calcification of the thoracic aorta. Visualized portions of the thoracic aorta are normal in caliber. The aortic arch demonstrates standard 3-vessel anatomy. Right carotid arterial system: The right common carotid artery is widely patent. Advanced atherosclerotic plaque in the carotid bulb causes less than 50% luminal narrowing of the proximal right internal carotid artery. The remainder of the right internal carotid artery is widely patent, as is the right external carotid artery. Left carotid arterial system: The left common carotid artery is widely patent, as are the left internal and external carotid arteries. Calcified plaque is noted in the carotid bulb. Vertebral arteries: The vertebral arteries are widely patent bilaterally noting mild left-sided dominance. Subclavian arteries: Widely patent bilaterally. Intracranial vasculature: Atherosclerotic calcification is noted in the cavernous carotid and vertebral arteries. There is origin of the right posterior cerebral artery. The right A1 segment is atretic. The internal carotid arteries are patent at the skull base, as are the anterior and middle cerebral arteries bilaterally. The vertebrobasilar system and posterior cerebral arteries are patent. There is at least moderate focal stenosis of the intracranial left vertebral artery at the skull base seen on image #28. The left vertebral artery is dominant. There is no aneurysm or focal vessel cut off seen throughout the intracranial circulation. Jugular veins: Patent bilaterally. Dural sinuses: Patent. Lung apices: Mild emphysematous change is noted at the apices. Upper lobe lung parenchyma is otherwise clear as imaged. Soft tissues: The visualized pharyngeal soft tissues are normal in appearance noting angiographic phase technique. The oropharyngeal airway appears widely patent. The salivary and thyroid glands are normal in appearance. No cervical lymphadenopathy is seen. Skeletal structures: The skeletal structures are osteopenic. The calvarium appears intact. The cervical spine is maintained noting multilevel spondylosis. No lytic or blastic lesion is seen. Orbits: The bony orbits are intact. Orbital contents are normal as visualized. Sinuses and mastoids: The paranasal sinuses are clear. The mastoid air cells are well pneumatized. Cerumen is noted in the external auditory canals. IMPRESSION: 1. There is no evidence of hemorrhage, mass effect, or acute territorial ischemia by CT criteria noting angiographic phase technique. 2. Atherosclerotic plaque causes less than 50% luminal narrowing of the proximal right internal carotid artery. 3. Otherwise unremarkable CT angiogram of the neck. 4. There is at least moderate focal stenosis of the intracranial left vertebral artery at the skull base. 5. Otherwise unremarkable CT angiogram of the brain. ACT 112: Negative or not required by law. Electronically signed by: Lee Camacho M.D. 04/19/2021 3:38 PM Neck CTA 04/19/21 14:59 CT ANGIOGRAM OF THE BRAIN; CT ANGIOGRAM OF THE NECK CLINICAL HISTORY: Strokelike symptoms. COMPARISON STUDY: Unenhanced CT of the brain performed the same day 04/19/2021. MR angiogram of the brain dated 09/18/2015. CT of the neck dated 11/05/2020. TECHNIQUE: Following the IV administration of 120 of Optiray 320, CT angiogram of the head and neck was performed from the aortic arch to the vertex. Images are reviewed in the axial, sagittal, and coronal planes. 3-D MIPS images are created and assessed. IV contrast was administered without complication. All measurements were calculated based on NASCET criteria. A dose lowering technique was utilized adhering to the principles of ALARA. CT DOSE: 1255.79 mGycm FINDINGS: Brain parenchyma: There is age-related involutional change noting mild subcortical and periventricular microangiopathic disease. 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 Chronic lacunar infarcts are noted in the right thalamus and the right cerebellar hemisphere. There is no evidence of hemorrhage, mass effect, or acute territorial ischemia by CT crit eria noting angiographic phase technique. There is no evidence of enhancing mass lesion on the angiogram phase images. The ventricles, sulci, and cisterns are prominent secondary to involutional change. Bright-white matter differentiation is preserved. No extra-axial fluid collection is seen. Thoracic aorta: There is atherosclerotic calcification of the thoracic aorta. Visualized portions of the thoracic aorta are normal in caliber. The aortic arch demonstrates standard 3-vessel anatomy. Right carotid arterial system: The right common carotid artery is widely patent. Advanced atherosclerotic plaque in the carotid bulb causes less than 50% luminal narrowing of the proximal right internal carotid artery. The remainder of the right internal carotid artery is widely patent, as is the right external carotid artery. Left carotid arterial system: The left common carotid artery is widely patent, as are the left internal and external carotid arteries. Calcified plaque is noted in the carotid bulb. Vertebral arteries: The vertebral arteries are widely patent bilaterally noting mild left-sided dominance. Subclavian arteries: Widely patent bilaterally. Intracranial vasculature: Atherosclerotic calcification is noted in the cavernous carotid and vertebral arteries. There is origin of the right posterior cerebral artery. The right A1 segment is atretic. The internal carotid arteries are patent at the skull base, as are the anterior and middle cerebral arteries bilaterally. The vertebrobasilar system and posterior cerebral arteries are patent. There is at least moderate focal stenosis of the intracranial left vertebral artery at the skull base seen on image #28. The left vertebral artery is dominant. There is no aneurysm or focal vessel cut off seen throughout the intracranial circulation. Jugular veins: Patent bilaterally. Dural sinuses: Patent. Lung apices: Mild emphysematous change is noted at the apices. Upper lobe lung parenchyma is otherwise clear as imaged. Soft tissues: The visualized pharyngeal soft tissues are normal in appearance noting angiographic phase technique. The oropharyngeal airway appears widely patent. The salivary and thyroid glands are normal in appearance. No cervical lymphadenopathy is seen. Skeletal structures: The skeletal structures are osteopenic. The calvarium appears intact. The cervical spine is maintained noting multilevel spondylosis. No lytic or blastic lesion is seen. Orbits: The bony orbits are intact. Orbital contents are normal as visualized. Sinuses and mastoids: The paranasal sinuses are clear. The mastoid air cells are well pneumatized. Cerumen is noted in the external auditory canals. IMPRESSION: 1. There is no evidence of hemorrhage, mass effect, or acute territorial ischemia by CT criteria noting angiographic phase technique. 2. Atherosclerotic plaque causes less than 50% luminal narrowing of the proximal right internal carotid artery. 3. Otherwise unremarkable CT angiogram of the neck. 4. There is at least moderate focal stenosis of the intracranial left vertebral artery at the skull base. 5. Otherwise unremarkable CT angiogram of the brain. ACT 112: Negative or not required by law. Electronically signed by: Lee Camacho M.D. 04/19/2021 3:[address] 04/20/21 14:47 CT head/brain wo con CLINICAL HISTORY: 76 years-old Male with f/u stroke-symptoms. Acute strokelike symptoms TECHNIQUE: Multiple axial CT images of the head were obtained without contrast. A dose lowering technique was utilized adhering to the principles of ALARA. CT DOSE: 1483.05 mGy.cm COMPARISON: Head CT 04/19/2021, 10/08/2015. FINDINGS: No acute intracranial hemorrhage, intracranial mass, hydrocephalus, territorial ischemia or abnormal extra-axial collection. Unchanged appearance of the anterior falx cerebri. Age-related involutional changes. White matter hypodensities suggest chronic microvascular ischemic disease. Unchanged chronic appearing lacunar infarct of the right thalamus. Cerebral vascular calcifications. Chronic left cerebellar infarcts. The calvarium is intact. Mastoid air cells are clear. Mild mucosal thickening of the paranasal sinuses with opacification of the left frontal sinus. Unremarkable soft tissues and orbits. IMPRESSION: 1. No acute intracranial abnormality. 2. Chronic findings as above. ACT 112: Negative or not required by law. The above report was generated using voice recognition software. It may contain grammatical, syntax or spelling errors. Electronically signed by: Tye Banegas M.D. 04/20/2021 3:29 PM Echocardiogram 04/19/21 The left ventricle is grossly normal size. There is severe concentric left ventricular hypertrophy. Left ventricular systolic function is normal. Ejection fraction equals 60 to 65%. The left ventricular wall motion is normal. The right ventricular is normal in size and function. Grade 1 diastolic dysfunction, (the abnormal relaxation pattern). Dilated aortic root at 4.7 cm. The left atrium is mildly dilated. The aortic valve is tricuspid. The leaflet thickness is normal. There is no aortic stenosis, and no significant insufficiency. Mild aortic regurgitation. There is an atrial septal aneurysm without evidence of right to left flow with agitated saline. Hospital Course (1) Stroke-like symptoms: - Admitted to monitored bed under hospitalist service for suspected ischemic CVA, NIH score of 6 - Echocardiogram ordered to r/o embolic source. Results as noted above. - Neurochecks ordered q2h and NIH stroke scale to be checked q shift - Dual antiplatelet therapy: added Plavix 75mg daily to his current aspirin regimen, will continue x 3 weeks - Fasting lipid panel this AM noted LDL ~70 and TG 180, would consider adding fenofibrate as outpatient - Serial troponins x 2 performed and were negative - Permissive hypertension allowed in setting of suspected ischemic event - Repeat CT w/o contrast ordered today at 1500--no acute findings - PT/OT eval placed, recommended home w/ home health including nursing and therapy (2) SSS (sick sinus syndrome): - s/p PPM - h/o paroxysmal afib/flutter, not on any ACT therapy, currently paced (3) Hypercholesteremia: - Updated fasting lipid panel, TG elevated, could consider adding fenofibrate which can be done as outpatient - Will change his Simvastatin to Atorvastatin (4) Hypothyroidism: - Continue Synthroid - Updated TSH low normal range (5) Aortic aneurysm: - Last noted to be ~4.5cm (6) Hypertension: - Not currently on any antihypertensives - BP has improved today - Will defer starting antihypertensive therapy at this time, advise pcp f/u (7) Dementia: - Documented as a problem but he lives independently at the [facility] - Takes no dementia medications - He is A&O (8) BPH w urinary obs/LUTS: - No complaints presently, continue doxazosin, finasteride, oxybutynin At this time, his neuro deficits have resolved, c/w TIA (resolved w/in 24 hrs of onset). Repeat CT head performed today. Med changes as mentioned above. Therapy recommending home w/ home health services. Arrangements made by case management. Pt is felt to be medically stable for discharge home today w/ home health. D/w Dr. Hall who has also seen this patient prior to discharge. Plan d/w pt's daughter, Lynn, at bedside. Total Time Total Time Spent Total Time Spent (In Minutes): >30 minutes Discharge Plan Discharge Items Patient Disposition: Home - Home Health Services Reason For Visit: STROKE Discharge Diagnosis: stroke-like symptoms Activity: Resume your previous activity Non-emergency contact: Primary Care Provider Call non-emergency contact if: you have any medication questions and your symptoms worsen Follow-up/Referrals: Sagrario Fang PA-C [Primary Care Provider] - Diet: Heart Healthy Addtl Attending Provider Instructions: You were hospitalized due to stroke-like symptoms including right-sided facial droop and difficulty with your speech. A CT scan was done of your head which did not reveal any acute stroke. Unfortunately, due to your pacemaker, we are unable to do a MRI. Subsequently, a follow-up CT scan was obtained today which did not reveal any acute findings and your symptoms have resolved. This could be a result of what is called a "transient ischemic attack" which manifests as temporary stroke symptoms that resolve within 24 hours. The following changes have been made to your medication regimen due to the stroke-like symptoms: Start on Plavix 75 mg once daily in addition to baby aspirin. This will be continued for total 21 days. We will change simvastatin to atorvastatin 40 mg and continue to take at bedtime. Both physical and Occupational Therapy saw you during this hospitalization. They recommended home PT/OT which will be arranged prior to discharge to follow-up with you at home. We will also arrange for nursing home to follow- up with you at home as well. Recommend follow-up with your primary care physician within 1 week of discharge. Will make arrangements to have to follow up with neurology as well. You will be contacted by our nurse navigator with an appointment. Pending Studies at Discharge: No Stand-Alone Forms: [facility], Smoking Cessation Medications and DC Order Prescriptions: New clopidogrel 75 mg Tablet 75 mg PO QAM Qty: 21 RF: 0 atorvastatin 40 mg tablet 40 mg PO HS Qty: 30 RF: 0 Continued oxybutynin chloride 5 mg tablet 5 mg PO BID Qty: 180 RF: 3 finasteride 5 mg tablet 5 mg PO HS Qty: 90 RF: 3 doxazosin 8 mg tablet 4 mg PO QAM Qty: 45 RF: 3 levothyroxine 75 mcg tablet 75 mcg PO QAM Qty: 90 RF: 3 calcium carbonate-vitamin D3 500 mg(1,250mg) -125 unit tablet 1 tab PO QPM RF: 0 cholecalciferol (vitamin D3) 1,000 unit capsule 1,000 units PO QAM RF: 0 famotidine 20 mg tablet 20 mg PO QAM Qty: 180 RF: 0 aspirin [Aspirin Low Dose] 81 mg Tablet,Delayed Release (Dr/Ec) 81 mg PO QAM RF: 0 PreserVision AREDS-2 [phone] gj-[id number]-[id number]-mg Capsule 1 tab PO BID RF: 0 perphenazine 4 mg Tablet See Rx Instructions .ROUTE .COMPLEX RF: 0 escitalopram oxalate 20 mg tablet 20 mg PO DAILY RF: 0 Discontinued simvastatin 40 mg tablet 40 mg PO HS Qty: 90 RF: 3 Discharge Orders: Discharge Order (Routine); Ordered 04/20/21 Ordered By: Lory Wright Admission Data Admit Date/Time: 04/19/21 17:42 Attending Provider: Jase Hall Admit Provider: Jase Hall Primary Care Provider: Sagrario Fang Other Providers: Jase Hall ; Jerod Chavez ; [facility] Coding Level of Care Code D/C DAY MANAGEMENT >30 MINS Diagnoses Stroke-like symptoms R29.90 SSS (sick sinus syndrome) I49.5 Hypercholesteremia E78.00 Hypothyroidism E03.9 Aortic aneurysm I71.9 Hypertension I10 Hypertension type: essential hypertension Dementia F03.90 BPH w urinary obs/LUTS N40.1; N13.8 [facility] Attestation I certify that this patient is under my care and that I, or a physicians certified physician assistant working with me, had a face to-face encounter that meets the [id number] encounter requirements with this patient. The encounter with the patient was in whole, or in part, for the following medical condition, which is the primary reason for home health care (list medical condition): I certify that, based on my findings, the following services are medically necessary home health services: My clinical findings support the need for the above services because: OT Assess ADL Status and Restore Function w ADLs PT Assessment for Endurance / Balance / Strength PT Eval for Safety and Mobility PT Eval for Safety, Gait Training, Assistive Devices PT Gait and Balance Training, Strengthening and Safety Safety Skilled Nsg Assessment Vital Signs Further, I certify that my clinical findings support that this patient is h omebound (i.e. absences from home require considerable and taxing effort and are for medical reasons or jew services or infrequently or of short duration when for other reasons) because: Transportation Assistance/Unable to Leave Home Unassisted Certification for Home Health Services: Based on the above findings, I certify that this patient is confined to the home and needs intermittent nursing home care, physical therapy and/or speech therapy or continues to need occupational therapy. The patient is under my care, and I have initiated the establishment of the plan of care. This patient will be followed by a physician who will periodically review the plan of care.
--- NOTE | 2021-04-20 15:31 | CT Scan Report ---
CT head/brain wo con CLINICAL HISTORY: 76 years-old Male with f/u stroke-symptoms. Acute strokelike symptoms TECHNIQUE: Multiple axial CT images of the head were obtained without contrast. A dose lowering tech nique was utilized adhering to the principles of ALARA. CT DOSE: 1483.05 mGy.cm COMPARISON: Head CT 04/19/2021, 10/08/2015. FINDINGS: No acute intracranial hemorrhage, intracranial mass, hydrocephalus, territorial ischemia or abnormal extra-axial collection. Unchanged appearance of the anterior falx cerebri. Age-related involutional c hanges. White matter hypodensities suggest chronic microvascular ischemic disease. Unchanged chronic appearing lacunar infarct of the right thalamus. Cerebral vascular calcifications. Chronic left cereb ellar infarcts. The calvarium is intact. Mastoid air cells are clear. Mild mucosal thickening of the paranasal sinus es with opacification of the left frontal sinus. Unremarkable soft tissues and orbits. IMPRESSION: 1. No acute intracranial abnormality. 2. Chronic findings as above. ACT 112: Negative or not required by law. The above report was generated using voice recognition software. It may contain grammatical, syntax o r spelling errors. Electronically signed by: Tye Banegas M.D. 04/20/2021 3:29 PM
[2021-04-20] MEDS: SIMVASTATIN 40 MG TAB PO SCH (17:54)
[2021-04-20] MEDS ORDERED: CEROVITE ADV FORMULA TAB PO SCH (21:00)
== END 2021-04-20 18:16 | disposition home health service (06) ==
LOC: ED 15:04 → EDINP 17:42 → INTOOBSV 17:42 → 2S 18:23

== ENCOUNTER 2023-11-25 23:35 | Inpatient (IN) ==
--- NOTE | 2023-11-26 00:08 | Emergency Department Note ---
Impression & Plan Hypoxia, Elevated troponin ED Provider Note Name: BEVERLY THACKER Age: 78 Sex: Male Arrives Via: Ambulance Informant: Patient and daughter ED Provider: Michael Iniguez MD Chief Complaint: Shortness of breath Impression: As per impressions above Medical Decision Makin-year-old gentleman arrives for evaluation worsening shortness of breath. He is mildly hypoxic on room air. Patient did have a GI bug a few days ago though no clear evidence of aspiration. Laboratory workup remarkable for a mildly elevated troponin beyond his baseline. EKG fortunately does not show any ischemic findings. Chest x-ray shows a large cardiac border with some moderate congestive findings however this is very similar to previous chest x-ray. BNP is only minimally elevated above baseline. Given hypoxia shortness of breath hospitalist was consulted for further management. Patient is not hypotensive significantly tachycardic nor hypoxic on nasal cannula. Suspect more cardiac rather than PE and will defer if need for CTA to hospitalist this patient is currently stable. Triage/Nursing Notes reviewed by Me Differential:Reactive airway disease, pneumonia, pneumothorax, COPD, CHF, infections, cardiac ischemia, pulmonary embolism, musculoskeletal, gastrointestinal, as well as other pathologies. Vital Signs: reviewed and remarkable for hypoxia Interventions: NC O2 Labs:ED labs Reviewed by me and remarkable for elevated troponin, elevated BNP both mildly above baseline Imagin view chest x-ray as per my interpretation shows an enlarged cardiac border with congestive findings. Similar to previous chest x-ray EKG:As per my interpretation. Indication shortness of breath. Sinus rhythm 86 bpm with PVC noted. Intraventricular block noted. No ischemia appreciated. Compared to EKG of 09/08/2023 no longer in an atrial paced rhythm though QRS morphology similar. Cardiac/Tele Monitoring: Cardiac Monitoring: An Order was placed for continuous cardiac monitoring. The monitor shows a rate of 80 with a normal sinus rhythm. Consults:Discussed the case with the hospitalist service who will further evaluate and manage the patient. Plan: Disposition:Hospitalization. Condition: Good History of Present Illness: 78-year-old gentleman arrives for evaluation of shortness of breath. Patient notes he had a gastrointestinal infection earlier in the week with nausea vomiting diarrhea. That has improved however now he is having shortness of breath. Over the last day increasing shortness of breath. He feels like he just cannot catch his breath. At times some mild coughing. No associated runny nose, fevers, chills. Did have some chest tightness about an hour ago. States he got severely short of breath and chest pain with exertion earlier. Denies any history of cardiac disease other than sick sinus syndrome for which she has a pacemaker. He has no history of CAD. He is on Plavix 75 mg daily. Does not take aspirin daily. Shortness of breath is significantly improved now that he is on oxygen. Patient arrived via EMS and had an O2 sat in the 80s prior to arrival. Patient denies any current abdominal pain, current chest pain, syncope, leg swelling or other concerning signs or symptoms. Patient did receive a DuoNeb prior to arrival which EMS notes improved patient symptoms Past Medical History:See Below Home Medications:See Below Allergies:See Below Vitals:Blood Pressure: 142/64, Pulse 83, RR 25, T 36.8C, O2 92% on 3L Physical Exam: GENERAL: Patient is mildly anxious appearing and in mild distress. RESPIRATORY: Diffusely tight lung sounds and no overt wheezing appreciated. Moderate tachypnea. Mild crackles bilateral bases CARDIOVASCULAR: Regular rate and rhythm.No murmur appreciated. GASTROINTESTINAL: Abdomen soft, non-tender, no peritonitis. EXTREMITIES: Normal motion all extremities, no cyanosis, mild edema bilateral upper arms edema. NEUROLOGIC: Alert and oriented. No focal neurologic deficits appreciated SKIN: No rash, no jaundice, no diaphoresis. PSYCH: Appropriate GCS: 15 ED Course: Times/Reassessments: Patient is feeling better on nasal cannula O2. Agreeable to hospitalization Michael Iniguez MD Past Med/Surg History Problem List (Updated 11/26/23 @ 06:02 by Michael Iniguez MD) Elevated troponin (Acute) Hypoxia (Acute) Vertigo Intermittent atrial flutter SSS (sick sinus syndrome) Anemia (Chronic) Hypercholesteremia (Chronic) Hypothyroidism (Chronic) Aortic aneurysm (Chronic) Hypertension (Acute) Positive colorectal cancer screening using Cologuard test Encounter for pre-operative examination Serrated adenoma of colon Jan 2019 Dementia Disorder of urinary system, unspecified BPH w urinary obs/LUTS Stroke (Acute) Tardive dyskinesia Dizziness Shortness of breath (Acute) Lumbar spinal stenosis Medical History Anemia Anxiety Aortic aneurysm Aspiration into airway Atrial fibrillation Chronic back pain CVA (cerebral vascular accident) Depression Food impaction of esophagus GERD (gastroesophageal reflux disease) History of colon polyps Hx of gout Hyperlipidemia Hypertension Hypothyroidism Schizoaffective disorder Spinal stenosis Surgical History History of bilateral carpal tunnel release History of colonoscopy History of elbow surgery History of esophagogastroduodenoscopy (EGD) History of left shoulder replacement History of right cataract extraction History of tooth extraction History of total left knee replacement (TKR) History of total right knee replacement (TKR) Pacemaker Family History Brother Prostate cancer Father Myocardial infarction Family/Other Cardiac disorder Stroke Hypertension Sister Parkinson disease Other No family history of adverse response to anesthesia Denies family history of Ovarian cancer Breast cancer Colorectal cancer Social History (Updated 06/11/23 @ 14:39 by SUSSY Juan) Smoking Status: Never smoker Second Hand Exposure: No; Do You Dip or Chew Tobacco: No; Hx Alcohol Use: No Hx Substance Use: No Preferred Language: Trinidadian Communication Ability: Effective Communication Ability Comment: SPEAK LOUD & SLOW Visual Impairment: No Limitations Hearing Ability: Normal Cashier General Required: No Beliefs That Will Affect Care: None marital status: Current Living Situation: Personal Care Facility Current Living Situation Comment: [facility] current occupational status: retired How many Children do You have: 2 Feels Safe at Home: Yes Safety Concerns: Feels Safe At This Time Dental Care, Regularly: Yes Physical Activity Frequency: Daily Seatbelt Use: always Assistive Devices: Cane and Walker Allergies Allergies Allergy/AdvReac Type Severity Reaction Status Date / Time codeine AdvReac Mild MENTAL Verified 11/26/23 01:44 INCOHERENCE hydrocodone AdvReac Mild CONFUSION,I Verified 11/26/23 01:44 NCOHERENCE oxycodone AdvReac Mild CONFUSION,I Verified 11/26/23 01:44 NCOHERENCE warfarin AdvReac Mild INTERFERES Verified 11/26/23 01:44 WITH OTHER MEDS Home Meds Home Medications Medication Instructions Recorded Confirmed perphenazine 4 mg tablet 12 mg PO HS 06/05/20 11/26/23 escitalopram oxalate 20 mg tablet 20 mg PO QAM 11/05/20 11/26/23 acetaminophen 650 mg 650 mg PO TID 09/08/23 09/08/23 tablet,extended release calcium citrate 315 mg-vitamin D3 2 tab PO DAILY 09/08/23 09/08/23 5 mcg (200 unit) tablet (Calcium Citrate + D) cholecalciferol (vitamin D3) 25 25 mcg PO QAM 09/08/23 09/08/23 mcg (1,000 unit) tablet (Vitamin D3) loperamide 2 mg capsule (Imodium 2 mg PO QID PRN Diarrhea 09/08/23 09/08/23 A-D) nystatin 100,000 unit/mL oral See Rx Instructions .Route .COMPLEX 09/08/23 09/08/23 suspension vit C 250 mg-vit E 90 mg-zinc 40 1 tab PO BID 09/08/23 09/08/23 mg-copper 1 [id number] capsule (PreserVision AREDS-2) doxazosin 8 mg tablet 4 mg PO HS 11/26/23 11/26/23 Previous Rx's Medication Instructions Recorded atorvastatin 40 mg tablet 40 mg PO HS #90 tabs 04/24/22 clopidogrel 75 mg tablet 75 mg PO QAM #90 tabs 04/24/22 finasteride 5 mg tablet 5 mg PO HS #90 tabs 04/24/22 levothyroxine 75 mcg tablet 75 mcg PO QAM #90 tabs 04/24/22 oxybutynin chloride 5 mg tablet 5 mg PO HS 90 days #90 tabs 07/14/22 tamsulosin 0.4 mg capsule 0.4 mg PO HS #90 caps 06/11/23 omeprazole 40 mg capsule,delayed 40 mg PO DAILY #90 caps 08/25/23 release cephalexin 500 mg capsule 500 mg PO TID 5 days #15 caps 10/07/23 Results & Data (ED) Vital Signs Vital Signs - 24 hr 11/26/23 00:04 11/26/23 00:04 11/26/23 00:04 Temperature 36.8 C Temperature Source Oral Pulse Rate 85 Pulse Rhythm Regular Pulse Strength Normal Respiratory Rate 20 Respiratory Effort / Characteristics Non-Labored Spontaneous Non-Labored Spontaneous Respiratory Depth Normal Respiratory Pattern Regular Blood Pressure 148/88 H Blood Pressure [Right Arm] Blood Pressure Mean 108 Blood Pressure Mean [Right Arm] Pulse Oximetry 92 Oxygen Delivery Method Nasal Cannula Room Air Nasal Cannula Oxygen Flow Rate 2 2 Sepsis Recent Fever Within 48 Hours No Sepsis New/Unexplained Change in Mental Status N/A Sepsis Action Taken by Nursing No Action Required 11/26/23 00:04 11/26/23 00:04 11/26/23 00:30 Temperature Temperature Source Pulse Rate 86 83 Pulse Rhythm Pulse Strength Respiratory Rate 24 Respiratory Effort / Characteristics Non-Labored Respiratory Depth Normal Respiratory Pattern Blood Pressure 146/86 H Blood Pressure [Right Arm] 148/89 H Blood Pressure Mean 129 Blood Pressure Mean [Right Arm] 108 Pulse Oximetry 93 Oxygen Delivery Method Oxygen Flow Rate Sepsis Recent Fever Within 48 Hours Sepsis New/Unexplained Change in Mental Status Sepsis Action Taken by Nursing 11/26/23 01:00 11/26/23 01:30 11/26/23 02:00 Temperature Temperature Source Pulse Rate 89 85 82 Pulse Rhythm Pulse Strength Respiratory Rate 23 22 20 Respiratory Effort / Characteristics Respiratory Depth Respiratory Pattern Blood Pressure 173/98 H 159/96 H 152/93 H Blood Pressure [Right Arm] Blood Pressure Mean 140 98 118 Blood Pressure Mean [Right Arm] Pulse Oximetry 93 95 94 Oxygen Delivery Method Nasal Cannula Nasal Cannula Nasal Cannula Oxygen Flow Rate 2 2 2 Sepsis Recent Fever Within 48 Hours Sepsis New/Unexplained Change in Mental Status Sepsis Action Taken by Nursing Laboratory Data 11/26/23 00:00 11/26/23 00:00 Lab Results 11/26/23 Range/Units 00:00 WBC 7.51 (4.8-10.8) K/ul RBC 3.58 L (4.70-6.10) M/uL Hgb 10.8 L (14.0-18.0) g/dl Hct 32.8 L (42.0-52.0) % MCV 91.6 (80.0-100.0) fL MCH 30.2 (25.0-34.0) pg MCHC 32.9 (32.0-36.0) g/dL RDW Std Deviation 48.0 H (36.4-46.3) fL RDW Coeff of Esteban 14.3 (11.5-14.5) % Plt Count 196 (130-400) K/uL MPV 10.1 (9.4-12.4) fL Immature Gran % (Auto) 0.4 % Neut % (Auto) 68.8 % Lymph % (Auto) 15.2 % Marin % (Auto) 13.2 % Eos % (Auto) 1.9 % Baso % (Auto) 0.5 % Neut # (Auto) 5.17 (1.40-6.50) K/uL Lymph # (Auto) 1.14 L (1.20-3.40) K/uL Marin # (Auto) 0.99 H (0.11-0.59) K/uL Eos # (Auto) 0.14 (0.00-0.50) K/uL Baso # (Auto) 0.04 (0.00-0.20) K/uL Immature Gran # (Auto) 0.03 (0.01-0.20) K/uL Sodium 137 (136-145) mmol/L Potassium 4.0 (3.5-5.1) mmol/L Chloride 103 (98-107) mmol/L Carbon Dioxide 26 (21-32) mmol/L Anion Gap 8 (3-11) BUN 17 (6-23) mg/dl Creatinine 0.81 (0.6-1.4) mg/dl Est Cr Clr Drug Dosing 80.7 ml/min Est GFR ( Amer) 98.0 ml/min Est GFR (Non-Af Amer) 84.5 ml/min BUN/Creatinine Ratio 21.0 H (10-20) Glucose 114 H (70-99(Fasting)) mg/dl Calcium 8.8 (8.6-10.3) mg/dl Magnesium 1.8 (1.7-2.4) mg/dl Total Bilirubin 0.6 (0.2-1.0) mg/dl Direct Bilirubin 0.1 (0-0.2) mg/dl AST 15 (13-39) U/L ALT 15 (7-52) U/L Alkaline Phosphatase 65 (34-104) U/L Troponin I High Sens 53.9 H* (0-20) pg/ml B-Natriuretic Peptide 527 H (0-100) pg/ml Total Protein 5.9 L (6.0-8.3) gm/dl Albumin 3.7 (3.4-5.0) gm/dl Procalcitonin < 0.02 (0-0.5) ng/ml SARS-CoV-2 (PCR) NEGATIVE (Negative) Influenza Type A (PCR) Negative (Neg) Influenza Type B (PCR) Negative (Neg) RSV (RT-PCR) Negative (Neg) Administered Medications Discontinued Medications Furosemide (Furosemide Inj 20 Mg/2 Ml Vial) 20 mg IV ONE ONE Stop: 11/26/23 02:12 Last Admin: 11/26/23 02:31 Dose: 20 mg Documented By: JIMW Discharge Plan Visit Data Chief Complaint: Shortness of Breath/Dyspnea Stated Complaint: SOB, Chest Tightness ED Provider: Michael Iniguez Discharge Problem: Hypoxia, Elevated troponin Patient Disposition: Admitted As Inpatient Discharge Instructions Interventions: ED Discharge Assessment Last Done: 11/26/23 03:14
[2023-11-26 00:18] LABS: Basophils # (auto) 0.04 K/uL (0.00-0.20); Basophils % (auto) 0.5 %; Eosinophils # (auto) 0.14 K/uL (0.00-0.50); Eosinophils % (auto) 1.9 %; Hematocrit (blood only) 32.8 % (42.0-52.0); Hemoglobin 10.8 g/dl (14.0-18.0); Immature Granulocytes # (auto) 0.03 K/uL (0.01-0.20); Immature Granulocytes % (auto) 0.4 %; Lymphocytes # (auto) 1.14 K/uL (1.20-3.40); Lymphocytes % (auto) 15.2 %; Mean Corpuscular Hemoglobin 30.2 pg (25.0-34.0); Mean Corpuscular Hgb Conc 32.9 g/dL (32.0-36.0); Mean Corpuscular Volume 91.6 fL (80.0-100.0); Mean Platelet Volume 10.1 fL (9.4-12.4); Monocytes # (auto) 0.99 K/uL (0.11-0.59); Monocytes % (auto) 13.2 %; Neutrophils # (auto) 5.17 K/uL (1.40-6.50); Neutrophils % (auto) 68.8 %; Platelet Count 196 K/uL (130-400); RDW Coefficient of Variation 14.3 % (11.5-14.5); Red Blood Count 3.58 M/uL (4.70-6.10); White Blood Count 7.51 K/ul (4.8-10.8)
[2023-11-26 00:36] LABS: Albumin Level 3.7 gm/dl (3.4-5.0); Bilirubin Direct 0.1 mg/dl (0-0.2); Bilirubin,Total 0.6 mg/dl (0.2-1.0); Calcium 8.8 mg/dl (8.6-10.3); Creatinine Clr Calc Pharmacy 80.7 ml/min; Est GFR (Non-African American) 84.5 ml/min; Magnesium 1.8 mg/dl (1.7-2.4); Total Protein 5.9 gm/dl (6.0-8.3)
[2023-11-26 00:46] LABS: Troponin I High Sensitivity 53.9 pg/ml (0-20)
--- NOTE | 2023-11-26 01:16 | History & Physical Report ---
Date of Service November 26, 2023 Assessment & Plan (1) Hypoxia: Plan: Acutely worsened oxygenation status. CXR with pulmonary congestion and left pleural effusion - per my read. BNP elevated. Given 20 mg IV Lasix with a second dose scheduled for the AM as he is Lasix naive. ECHO ordered. Diuresis as indicated/tolerated ECHO, may need cards consult Nebs for wheezing/SOB, IS WA Consider pulm consult for effusion (2) Anemia: Plan: Normocytic anemia. Chronic condition, but typically in the 11-12s. No obvious source of bleeding. Will increase PPI to IV BID as he does have reflux. No prior workup noted. Ordered ferritin, Iron panel, B12, and folate. Continue to monitor. (3) Dementia: Plan: With patient's history of dementia there is a risk that he will develop delirium during hospital stay. Delirium precautions - optimize sleep/wake, minimize lines/tubes, etc. Continue dementia/mood meds once confirmed. (4) BPH w urinary obs/LUTS: Plan: Will use male purewick while diuresing as patient with baseline incontinence. Will need clarification of home BPH regimen. Plan Code status: full DVT ppx: SCDs, hold off on chemo ppx for now FENGI: regular diet, diuresing Dispo: tele unit History of Present Illness Chief Complaint: SOB Primary Care Provider: Sohail Nick, DO 78 y/o with a PMHx of hypothyroidism, BPH with urinary incontinence, dementia, stable aortic arch aneurysm, and prior CVA here for evaluation of hypoxia. Found to be saturating in the 80s at the [facility] and was brought in by ambulance. He did get some duonebs en route as there was concern for wheezing. Patient with long standing SOB that has worsened over the last few days. Having trouble walking extended distances. No fevers or chills. Has had some nausea and vomiting with mild abdominal cramping, last emesis 2 or so days ago. Unsure if there was blood in this. No change in bowel habits - constipation or diarrhea. No blood in the stool. Does have reflux sometimes. Will also have some lightheadedness/dizziness. Had a pacemaker placed for tachy/atiya. No history of heart failure. No orthopnea or lower extremity swelling. Allergies Allergy/AdvReac Type Severity Reaction Status Date / Time codeine AdvReac Mild MENTAL Verified 11/26/23 01:44 INCOHERENCE hydrocodone AdvReac Mild CONFUSION,I Verified 11/26/23 01:44 NCOHERENCE oxycodone AdvReac Mild CONFUSION,I Verified 11/26/23 01:44 NCOHERENCE warfarin AdvReac Mild INTERFERES Verified 11/26/23 01:44 WITH OTHER MEDS Home Medications Medication Instructions Recorded Confirmed Type perphenazine 4 mg tablet 12 mg PO HS 06/05/20 11/26/23 History escitalopram oxalate 20 mg tablet 20 mg PO QAM 11/05/20 11/26/23 History atorvastatin 40 mg tablet 40 mg PO HS #90 tabs 04/24/22 09/08/23 Rx clopidogrel 75 mg tablet 75 mg PO QAM #90 tabs 04/24/22 09/08/23 Rx finasteride 5 mg tablet 5 mg PO HS #90 tabs 04/24/22 11/26/23 Rx levothyroxine 75 mcg tablet 75 mcg PO QAM #90 tabs 04/24/22 09/08/23 Rx oxybutynin chloride 5 mg tablet 5 mg PO HS 90 days #90 tabs 07/14/22 11/26/23 Rx tamsulosin 0.4 mg capsule 0.4 mg PO HS #90 caps 06/11/23 11/26/23 Rx omeprazole 40 mg capsule,delayed 40 mg PO DAILY #90 caps 08/25/23 09/08/23 Rx release acetaminophen 650 mg 650 mg PO TID 09/08/23 09/08/23 History tablet,extended release calcium citrate 315 mg-vitamin D3 2 tab PO DAILY 09/08/23 09/08/23 History 5 mcg (200 unit) tablet (Calcium Citrate + D) cholecalciferol (vitamin D3) 25 25 mcg PO QAM 09/08/23 09/08/23 History mcg (1,000 unit) tablet (Vitamin D3) loperamide 2 mg capsule (Imodium 2 mg PO QID PRN Diarrhea 09/08/23 09/08/23 History A-D) nystatin 100,000 unit/mL oral See Rx Instructions .Route .COMPLEX 09/08/23 09/08/23 History suspension vit C 250 mg-vit E 90 mg-zinc 40 1 tab PO BID 09/08/23 09/08/23 History mg-copper 1 [id number] capsule (PreserVision AREDS-2) cephalexin 500 mg capsule 500 mg PO TID 5 days #15 caps 10/07/23 Rx doxazosin 8 mg tablet 4 mg PO HS 11/26/23 11/26/23 History Past Med/Surg History Problem List (Updated 11/26/23 @ 02:03 by Leonarda Osullivan MD) Hypoxia Vertigo Intermittent atrial flutter SSS (sick sinus syndrome) Anemia (Chronic) Hypercholesteremia (Chronic) Hypothyroidism (Chronic) Aortic aneurysm (Chronic) Hypertension (Acute) Positive colorectal cancer screening using Cologuard test Encounter for pre-operative examination Serrated adenoma of colon Jan 2019 Dementia Disorder of urinary system, unspecified BPH w urinary obs/LUTS Stroke (Acute) Tardive dyskinesia Dizziness Shortness of breath (Acute) Lumbar spinal stenosis Medical History Anemia Anxiety Aortic aneurysm Aspiration into airway Atrial fibrillation Chronic back pain CVA (cerebral vascular accident) Depression Food impaction of esophagus GERD (gastroesophageal reflux disease) History of colon polyps Hx of gout Hyperlipidemia Hypertension Hypothyroidism Schizoaffective disorder Spinal stenosis Surgical History History of bilateral carpal tunnel release History of colonoscopy History of elbow surgery History of esophagogastroduodenoscopy (EGD) History of left shoulder replacement History of right cataract extraction History of tooth extraction History of total left knee replacement (TKR) History of total right knee replacement (TKR) Pacemaker Family History Brother Prostate cancer Father Myocardial infarction Family/Other Cardiac disorder Stroke Hypertension Sister Parkinson disease Other No family history of adverse response to anesthesia Denies family history of Ovarian cancer Breast cancer Colorectal cancer Social History (Updated 06/11/23 @ 14:39 by SUSSY Juan) Smoking Status: Never smoker Second Hand Exposure: No; Do You Dip or Chew Tobacco: No; Hx Alcohol Use: No Hx Substance Use: No Preferred Language: Dominican Communication Ability: Effective Communication Ability Comment: SPEAK LOUD & SLOW Visual Impairment: No Limitations Hearing Ability: Normal Antique Furniture Repairer Required: No Beliefs That Will Affect Care: None marital status: Current Living Situation: Personal Care Facility Current Living Situation Comment: [facility] current occupational status: retired How many Children do You have: 2 Feels Safe at Home: Yes Safety Concerns: Feels Safe At This Time Dental Care, Regularly: Yes Physical Activity Frequency: Daily Seatbelt Use: always Assistive Devices: Cane and Walker Review of Systems 2 Review of Systems: See HPI Physical Exam 2 Physical Exam: Gen: elderly appearing patient in NAD HEENT: AT NC MMM bilateral cheek quivering Resp: decreased breath sound left lower lobe, mildly increased respiratory effort - no accessory muscle use, appropriate air movement in the other lung clancy CV: RRR no m/r/g no extra heart sounds appreciated, no lower extremity edema, clinically well perfused Abd: soft, non-tender, non-distended MSK: no obvious deformities Skin: no rashes or bruising Neuro: alert and oriented, some trouble with word finding - per daughter this is baseline Psych: appropriate mood and affect Results & Data Results & Data Vital Signs (Past 12 Hours) Vital Signs Temp Pulse Resp BP BP Pulse Ox O2 Del Method 11/26/23 00:30 83 24 146/86 H 93 11/26/23 00:04 86 11/26/23 00:04 148/89 H 11/26/23 00:04 Nasal Cannula 11/26/23 00:04 36.8 C 85 20 148/88 H 92 Room Air 11/26/23 00:04 Nasal Cannula O2 Flow Rate 11/26/23 00:30 11/26/23 00:04 11/26/23 00:04 11/26/23 00:04 2 11/26/23 00:04 11/26/23 00:04 2 Laboratory Results 11/26/23 00:00 11/26/23 00:00 Supervising Physician Co-Signing Physician Notes Attending addendum: I have physically seen this patient, have supervised the medical residents activities, and agree with the H&P unless as otherwise noted. Assessment and Plan: Acute respiratory failure with hypoxia/pulmonary edema with left pleural effusion/elevated troponin/AV pacer/history of intermittent atrial flutter/sick sinus syndrome- The patient will be admitted to telemetry for serial cardiac enzymes, serial EKG's, cardiac rhythm monitoring and a 2-D echocardiogram with Dopplers. Troponin 53.9 with follow-up pending Given furosemide 20 mg IV, having not been on diuresis in the past. Follow urine output closely, and increase dosing of furosemide if insufficient response Left pleural effusion could require thoracentesis if not diuretic responsive Continue clopidogrel Anemia- Hemoglobin 10.8 with base range 12.2-13.5 Hemoccult stools May be an element of fluid overload Repeat in a.m. BPH with LUTS- Continuing finasteride, tamsulosin and oxybutynin Hold doxazosin Unclear why he is on both doxazosin and tamsulosin Dementia/tardive dyskinesia- Continue escitalopram, perphenazine GERD- Change omeprazole to IV pantoprazole Resident Activity Tracking Resident Involvement: Resident Care Provided Care Provided: Adult [facility]
[2023-11-26 01:28] LABS: Influenza A virus by PCR Negative (Neg); Influenza B virus by PCR Negative (Neg); RSV by PCR Negative (Neg); SARS CoV2 RNA(COVID-19) Ceph NEGATIVE (Negative)
[2023-11-26] MEDS: FUROSEMIDE INJ 20 MG/2 ML VIAL IV ONE ×2 (02:31→06:32)
[2023-11-26] MEDS ORDERED: ALUMINUM/MAGNESIUM SUSP 30 ML UDC PO PRN (03:14)
[2023-11-26] MEDS ORDERED: ALBUT/IPRATROP 3MG/0.5MG NEB 3 ML VIAL NEB PRN (03:14)
[2023-11-26] MEDS ORDERED: ONDANSETRON INJ 2 MG/ML 2 ML VIAL IV PRN (03:14)
--- NOTE | 2023-11-26 03:31 | Billing Data ---
Date of Service November 26, 2023 Coding Level of Care Code 11789 INT INP/OBS CARE
[2023-11-26] MEDS: LEVOTHYROXINE SODIUM 75 MCG TABLET PO SCH (06:32)
--- NOTE | 2023-11-26 07:48 | XRay Report ---
SINGLE VIEW CHEST CLINICAL HISTORY: Dyspnea FINDINGS: 2 AP, portable, upright chest radiographs are compared to study dated 02/05/2023 and correla bridget with chest CT dated 11/05/2020. A 2-lead cardiac pacemaker is unchanged in position and partially o bscures the left mid chest. The heart is enlarged noting atherosclerotic calcification of the thoraci c aorta. The pulmonary vasculature is noncongested. Chronic interstitial thickening is similar to pre vious. There is airspace consolidation of the left lung base. A small left pleural effusion is suspec bridget. No pneumothorax is seen. The bony thorax is grossly intact. A left shoulder arthroplasty is in p lace. Arthritic change is seen in the right shoulder. IMPRESSION: 1. Cardiomegaly and cardiac pacemaker without radiographic evidence of congestive failure. 2. Left basilar consolidation. This could represent atelectasis versus pneumonia/aspiration pneumonit is and clinical correlation will be required. Radiographic follow-up to resolution is recommended. 3. Suspect a small left pleural effusion ACT 112: Negative or not required by law. Electronically signed by: Lee Camacho M.D. 11/26/2023 7:47 AM
[2023-11-26 08:09] LABS: Hematocrit (blood only) 33.1 % (42.0-52.0); Hemoglobin 11.1 g/dl (14.0-18.0); Mean Corpuscular Hemoglobin 30.3 pg (25.0-34.0); Mean Corpuscular Hgb Conc 33.5 g/dL (32.0-36.0); Mean Corpuscular Volume 90.4 fL (80.0-100.0); Mean Platelet Volume 10.3 fL (9.4-12.4); Platelet Count 216 K/uL (130-400); RDW Coefficient of Variation 14.3 % (11.5-14.5); RDW Standard Deviation 47.8 fL (36.4-46.3); Red Blood Count 3.66 M/uL (4.70-6.10); White Blood Count 6.54 K/ul (4.8-10.8)
[2023-11-26] MEDS: PANTOprazole 40 MG in SYRINGE 0 ML IV SCH (08:35)
[2023-11-26] MEDS: ESCITALOPRAM OXALATE 20 MG TAB PO SCH (08:36)
[2023-11-26] MEDS ORDERED: CLOPIDOGREL BISULFATE 75 MG TAB PO SCH (09:00)
[2023-11-26 09:10] LABS: BUN Creatinine Ratio 19.2 (10-20); Calcium 8.9 mg/dl (8.6-10.3); Creatinine Clr Calc Pharmacy 83.8 ml/min; Est GFR (African American) 99.5 ml/min; Est GFR (Non-African American) 85.9 ml/min; Potassium 3.6 mmol/L (3.5-5.1)
[2023-11-26 09:29] LABS: Ferritin 26.6 ng/ml (8-388)
[2023-11-26 09:34] LABS: Folate (Folic Acid),Ser orPlas 9.36 ng/ml (>5.38)
--- NOTE | 2023-11-26 11:10 | Communication Note ---
Date of Service: November 26, 2023 Patient admitted after midnight Patient seen and examined H&P from 11/26/2023 reviewed Labs reviewed: Troponin rising Radiology reviewed Patient reports improvement in his breathing symptoms after IV Lasix He denies any chest pain or shortness of breath at this point He is still requiring oxygen Plan: Lasix 20 mg IV twice daily I/O monitoring Daily weights Telemetry monitoring Follow-up echo Cardiology consulted: Await computing consultant recommendations Check A1c in a.m. Vitamin B-12 supplementation Await cardiology consult and recommendations Care plan discussed with patient, nursing staff
[2023-11-26] MEDS: CYANOCOBALAMIN 1000 MCG/ML VIAL IM SCH (11:37)
[2023-11-26] MEDS: POTASSIUM CHLORIDE CRTAB 20 MEQ TABCR PO STA (11:37)
--- NOTE | 2023-11-26 12:41 | XCELERA ---
[id number]
--- NOTE | 2023-11-26 12:42 | Electrocardiogram Report ---
Test Reason : Blood Pressure : */* mmHG Vent. Rate : 86 BPM Atrial Rate : 86 BPM P-R Int : 136 ms QRS Dur : 104 ms QT Int : 404 ms P-R-T Axes : -2 -13 86 degrees QTcB Int : 483 ms Sinus rhythm with occasional Premature ventricular complexes Nonspecific ST and T wave abnormality Prolonged QT Abnormal ECG When compared with ECG of 08-Sep-2023 21:16, Sinus rhythm has replaced Electronic atrial pacemaker Confirmed by Kelvin Mcmillan ([id number]) on 11/26/2023 12:41:51 PM Referred By: [facility] Confirmed By: Kelvin Mcmillan
--- NOTE | 2023-11-26 12:45 | Cardiology Consultation ---
Date of Consultation November 26, 2023 Assessment & Plan (1) Acute heart failure with mildly reduced ejection fraction (HFmrEF, 41-49%): (2) Elevated troponin: (3) Cardiomyopathy: (4) Pericardial effusion: (5) Aneurysm of thoracic aorta: (6) SSS (sick sinus syndrome): (7) Pacemaker: Plan ASSESSMENT/PLAN: 1. Acute heart failure with mildly reduced EF: He appears hypervolemic. Continue Lasix 20 mg IV twice daily for now. Approximately 1.5 L negative thus far. Monitor renal function and electrolytes closely. Recommend SGLT2 inhibitor if tolerated. Could also consider spironolactone but given what seems to be orthostatic symptoms in the past, would for start with loop diuretic today and possibly Jardiance tomorrow. Low-sodium diet, less than 2000 mg daily. Daily weights. Strict I's and O's. Heart failure program referral. 2. Cardiomyopathy: LV systolic function has declined. Severe LVH also noted. Discussed potential etiologies with his daughter. She does not wish to pursue cardiac MRI to evaluate for amyloidosis. She is not interested in ischemic evaluation. She is okay with SPEP and UPEP. Has not tolerated beta-blockers or JULI inhibitor/ARB in the past due to lightheadedness. Initiate treatment as above and can slowly titrate medical therapy if tolerated. He does not meet criteria for ICD for primary prevention. He rarely paces in the ventricle. Will repeat TSH. 3. Thoracic aortic aneurysm: Does not meet criteria for surgical intervention and based on discussion today, invasive measures are not wanted. He has not tolerated beta-geena in the past due to worsening lightheadedness. Aortic root seems stable in size compared to previous echo. Avoid strenuous lifting for which the Valsalva maneuver is required. If not done in the past, first- degree relatives should be screened. 4. Pericardial effusion: Small without hemodynamic significance. Can be monitored over time. Seems to be chronic. 5. Elevated troponin: Likely due to demand ischemia in the setting of hypoxia and heart failure exacerbation. His daughter is not interested in pursuing ischemic evaluation, which seems reasonable. 6. Tachybradycardia syndrome s/p dual-chamber pacemaker: Follows with electrophysiology, Dr. Bonilla. 7. Disposition: I will be away from the hospital later this evening through the weekend. Please call on-call coo for any questions or concerns. I will sign out to Dr. Mayers. Patient care communicated with primary hospitalist, Dr. Ortiz. Highly complex medical issues. Thank you for allowing me to participate in the care of your patient. Please call for any other questions or concerns. Sincerely, Wilmer Mcmillan M.D. History of Present Illness Reason for Consultation: "CHF, rising troponin, hypoxia" Requesting Physician: Adonay Ortiz MD Attending Physician: Adonay Ortiz MD History of Present Illness Mr. Heredia is a very pleasant 78-year-old gentleman with history significant for tachybradycardia syndrome s/p dual-chamber pacemaker, TIA, stroke, hypertension, thoracic aortic aneurysm, and dementia/memory loss. His primary coo is Dr. Bonilla. He was admitted on 11/26/2023 with hypoxia. History was obtained by reviewing records, speaking with patient, and also his daughter, Lynn Green PA-C, who was present at the bedside. Venus states that he has had dyspnea on exertion for approximately 1 year. Over the past 4 days or so, it is reported that his dyspnea on exertion worsened. While [facility], he was noted to be hypoxic with oxygen saturation in the 80s on room air. There has not been any reported orthopnea, edema and he denies palpitations. He reported substernal chest discomfort but then described it as the feeling as though he cannot breathe. He reported that the chest discomfort occurred with exertion over the last 8 to 10 days but improved with physical therapy. He was unable to give any further description of the chest discomfort. He was chest pain-free at the time of today's evaluation earlier this afternoon. While here, he has received Lasix 20 mg IV x 2 and has been diuresing as per nursing staff. I's and O's are being monitored. Nursing staff reports that his oxygen requirement/oxygenation has improved since presentation. He does not necessarily maintain a low-sodium diet as he receives food at his living facility. There has not been any reported melena, hematochezia, hematuria, or other bleed ing. According to admitting records, he had nausea and vomiting a few days before presentation. Mckay reports that he has been unable to tolerate antihypertensive agents in the past due to lightheadedness/dizziness, which is a chronic issue. He uses a walker for ambulation and has chronic back pain. He walks daily at [facility]. Review of systems: As above. Family history: Noncontributory. Social history: Denies smoking but chewed tobacco for years before quitting. Denies alcohol or drug abuse. Lives at [facility]. Has 4 daughters. Grandchildren. His daughter, Lynn Green PA-C, was present at the bedside. Allergies Allergy/AdvReac Type Severity Reaction Status Date / Time codeine AdvReac Mild MENTAL Verified 11/26/23 01:44 INCOHERENCE hydrocodone AdvReac Mild CONFUSION,I Verified 11/26/23 01:44 NCOHERENCE oxycodone AdvReac Mild CONFUSION,I Verified 11/26/23 01:44 NCOHERENCE warfarin AdvReac Mild INTERFERES Verified 11/26/23 01:44 WITH OTHER MEDS Home Medications Medication Instructions Recorded Confirmed Type perphenazine 4 mg tablet 12 mg PO HS 06/05/20 11/26/23 History escitalopram oxalate 20 mg tablet 20 mg PO QAM 11/05/20 11/26/23 History atorvastatin 40 mg tablet 40 mg PO HS #90 tabs 04/24/22 09/08/23 Rx clopidogrel 75 mg tablet 75 mg PO QAM #90 tabs 04/24/22 09/08/23 Rx finasteride 5 mg tablet 5 mg PO HS #90 tabs 04/24/22 11/26/23 Rx levothyroxine 75 mcg tablet 75 mcg PO QAM #90 tabs 04/24/22 09/08/23 Rx oxybutynin chloride 5 mg tablet 5 mg PO HS 90 days #90 tabs 07/14/22 11/26/23 Rx tamsulosin 0.4 mg capsule 0.4 mg PO HS #90 caps 06/11/23 11/26/23 Rx omeprazole 40 mg capsule,delayed 40 mg PO DAILY #90 caps 08/25/23 09/08/23 Rx release acetaminophen 650 mg 650 mg PO TID 09/08/23 09/08/23 History tablet,extended release calcium citrate 315 mg-vitamin D3 2 tab PO DAILY 09/08/23 09/08/23 History 5 mcg (200 unit) tablet (Calcium Citrate + D) cholecalciferol (vitamin D3) 25 25 mcg PO QAM 09/08/23 09/08/23 History mcg (1,000 unit) tablet (Vitamin D3) loperamide 2 mg capsule (Imodium 2 mg PO QID PRN Diarrhea 09/08/23 09/08/23 History A-D) nystatin 100,000 unit/mL oral See Rx Instructions .Route .COMPLEX 09/08/23 09/08/23 History suspension vit C 250 mg-vit E 90 mg-zinc 40 1 tab PO BID 09/08/23 09/08/23 History mg-copper 1 [id number] capsule (PreserVision AREDS-2) cephalexin 500 mg capsule 500 mg PO TID 5 days #15 caps 10/07/23 Rx doxazosin 8 mg tablet 4 mg PO HS 11/26/23 11/26/23 History Problem List (Updated 11/26/23 @ 15:32 by Kelvin Mcmillan MD) Aneurysm of thoracic aorta Pericardial effusion Cardiomyopathy Acute heart failure with mildly reduced ejection fraction (HFmrEF, 41-49%) Elevated troponin (Acute) Hypoxia (Acute) Vertigo Intermittent atrial flutter SSS (sick sinus syndrome) Anemia (Chronic) Hypercholesteremia (Chronic) Hypothyroidism (Chronic) Aortic aneurysm (Chronic) Hypertension (Acute) Positive colorectal cancer screening using Cologuard test Encounter for pre-operative examination Serrated adenoma of colon Jan 2019 Dementia Disorder of urinary system, unspecified BPH w urinary obs/LUTS Stroke (Acute) Tardive dyskinesia Dizziness Shortness of breath (Acute) Lumbar spinal stenosis Patient History Medical History (Updated 11/26/23 @ 15:32 by Kelvin Mcmillan MD) Schizoaffective disorder Hx of gout Food impaction of esophagus hx Aspiration into airway History of colon polyps BENIGN Depression GERD (gastroesophageal reflux disease) Spinal stenosis Chronic back pain Hypothyroidism Anemia ? CURRENT STATUS Anxiety Hypertension was on meds, but was taken off Hyperlipidemia Aortic aneurysm USED TO MONITOR-NOT CURRENTLY CVA (cerebral vascular accident) BRAIN BLEED-2006?-affected balance, causing dizziness, poor balance, light headed---no neurologist now was following with Dr. Chavez-AND DISCHARGED-F/U PCP SPEECH IS SLOW, COMMUNICATION EFFECTIVE ; PT REPORTS SPEECH SLOW SINCE AFTER BRAIN BLEED - SPEAK LOUD AND SLOW Surgical History History of right cataract extraction History of esophagogastroduodenoscopy (EGD) History of elbow surgery right History of bilateral carpal tunnel release History of left shoulder replacement History of total left knee replacement (TKR) History of total right knee replacement (TKR) History of colonoscopy History of tooth extraction Pacemaker Biotronik 09/2015 @ [facility] - PLACED "TO KEEP ME FROM FALLING" PT REPORTS HAS HELPED Family History Brother Prostate cancer Father Myocardial infarction Family/Other Cardiac disorder Stroke Hypertension Sister Parkinson disease Other No family history of adverse response to anesthesia Denies family history of Ovarian cancer Breast cancer Colorectal cancer Social History (Updated 06/11/23 @ 14:39 by SUSSY Juan) Smoking Status: Never smoker Second Hand Exposure: No; Do You Dip or Chew Tobacco: No; Hx Alcohol Use: No Hx Substance Use: No Preferred Language: Gabonese Communication Ability: Effective Communication Ability Comment: SPEAK LOUD & SLOW Visual Impairment: No Limitations Hearing Ability: Normal Package Crimper Required: No Beliefs That Will Affect Care: None marital status: Current Living Situation: Personal Care Facility Current Living Situation Comment: [facility] current occupational status: retired How many Children do You have: 2 Feels Safe at Home: Yes Dental Care, Regularly: Yes Physical Activity Frequency: Daily Seatbelt Use: always Assistive Devices: Cane and Walker Physical Exam Physical Exam: Gen.: No acute distress. Alert. HEENT: Anicteric sclera. Neck: Mild JVD. Hepatojugular reflux noted. No bruits. Normal carotid upstrokes bilaterally. Cardiac: Regular. Normal S1-S2. No murmurs, rubs, or gallops. Pulmonary: Decreased breath sounds at the left base, but otherwise clear to auscultation bilaterally without wheezes, rales, or rhonchi. Abdomen: Soft, nontender, nondistended, with normoactive bowel sounds. No bruits noted. Extremities: 2+ radial pulses bilaterally. 2+ posterior tibialis pulses bilaterally. No significant pitting edema or cyanosis. Results & Data Vital Signs (Past 12 Hours) Vital Signs Temp Pulse Pulse Resp BP BP Pulse Ox 11/26/23 12:36 79 20 137/83 97 11/26/23 08:39 79 22 149/76 H 93 11/26/23 06:32 36.6 C 75 14 143/77 H 95 11/26/23 04:06 83 16 147/81 H 96 11/26/23 04:02 11/26/23 03:01 11/26/23 03:01 79 20 142/80 H 90 11/26/23 03:00 82 16 142/80 H 94 11/26/23 02:30 88 24 183/99 H 96 11/26/23 02:00 82 20 152/93 H 94 11/26/23 01:30 85 22 159/96 H 95 11/26/23 01:00 89 23 173/98 H 93 Pulse Ox O2 Del Method O2 Del Method O2 Flow Rate O2 Flow Rate 11/26/23 12:36 Nasal Cannula 2 11/26/23 08:39 Nasal Cannula 2 11/26/23 06:32 Room Air 2 11/26/23 04:06 Nasal Cannula 2 11/26/23 04:02 93 Nasal Cannula 2 11/26/23 03:01 Nasal Cannula 2 11/26/23 03:01 Nasal Cannula 2 11/26/23 03:00 Nasal Cannula 2 11/26/23 02:30 Nasal Cannula 2 11/26/23 02:00 Nasal Cannula 2 11/26/23 01:30 Nasal Cannula 2 11/26/23 01:00 Nasal Cannula 2 Intake & Output 11/24/23 11/25/23 11/26/23 11/27/23 06:59 06:59 06:59 06:59 Intake Total 280 / 280 Output Total 600 / 600 1101 / 1101 Balance -600 / -600 -821 / -821 Weight 214 lb 4.629 oz Laboratory Results Laboratory Results - last 24 hr 11/26/23 11/26/23 11/26/23 00:00 02:20 07:47 WBC 7.51 6.54 RBC 3.58 L 3.66 L Hgb 10.8 L 11.1 L Hct 32.8 L 33.1 L MCV 91.6 90.4 MCH 30.2 30.3 MCHC 32.9 33.5 RDW Std Deviation 48.0 H 47.8 H RDW Coeff of Esteban 14.3 14.3 Plt Count 196 216 MPV 10.1 10.3 Immature Gran % (Auto) 0.4 Neut % (Auto) 68.8 Lymph % (Auto) 15.2 Hunt % (Auto) 13.2 Eos % (Auto) 1.9 Baso % (Auto) 0.5 Neut # (Auto) 5.17 Lymph # (Auto) 1.14 L Hunt # (Auto) 0.99 H Eos # (Auto) 0.14 Baso # (Auto) 0.04 Immature Gran # (Auto) 0.03 Sodium 137 139 Potassium 4.0 3.6 Chloride 103 103 Carbon Dioxide 26 28 Anion Gap 8 8 BUN 17 15 Creatinine 0.81 0.78 Est Cr Clr Drug Dosing 80.7 83.8 Est GFR ( Amer) 98.0 99.5 Est GFR (Non-Af Amer) 84.5 85.9 BUN/Creatinine Ratio 21.0 H 19.2 Glucose 114 H 102 H Calcium 8.8 8.9 Magnesium 1.8 Iron 42 TIBC 300 Unsaturated IBC 258 Transferrin % Sat 14 L Ferritin 26.6 Total Bilirubin 0.6 Direct Bilirubin 0.1 AST 15 ALT 15 Alkaline Phosphatase 65 Troponin I High Sens 53.9 H* 57.9 H* 66.1 H* B-Natriuretic Peptide 527 H Total Protein 5.9 L Albumin 3.7 Vitamin B12 275 Folate 9.36 Procalcitonin < 0.02 SARS-CoV-2 (PCR) NEGATIVE Influenza Type A (PCR) Negative Influenza Type B (PCR) Negative RSV (RT-PCR) Negative Diagnostic Findings ECHO 11/26/23: 1. Normal left ventricular size with mildly reduced systolic function. Estimated EF 45-50%. Mild global hypokinesis. Severe concentric left ventricular hypertrophy. 2. Mild left atrial dilation. 3. Mild aortic regurgitation. 4. Mildly dilated aortic arch; 4 cm. 5. Dilated aortic root; 4.8 cm. 6. Small pericardial effusion without echocardiographic evidence of tamponade physiology. 7. Normal estimated right ventricular systolic pressure. 8. Poor image quality. 9. Technically difficult study, enhanced with IV Definity. 10. Compared to prior study on 05/26/2022, LV systolic function has declined. ECG personally reviewed: ECG 11/25/2023 2345: NSR with PVC [address]/T wave abnormality. Labs reviewed and notable for mildly elevated high-sensitivity troponin up to 66 thus far, normal renal function, normal potassium, normal magnesium, normal transaminase levels, mild (chronic) anemia. History and physical report reviewed. Chest x-ray 11/26/2023: Left basilar consolidation per radiology. Suspect small left pleural effusion per radiology. Chronic interstitial thickening similar to previous. No radiographic evidence of congestive failure per radiology. Medications Administered Current Inpatient Medications Acetaminophen (Acetaminophen 325 Mg Tab) 650 mg PO Q4H PRN PRN Reason: Pain or Fever Stop: 12/26/23 03:13 Al Hydrox/Mg Hydrox/Simethicone (Aluminum/Magnesium Susp 30 Ml Udc) 15 ml PO Q4H PRN PRN Reason: Dyspepsia Stop: 12/26/23 03:13 Albuterol (Albut/Ipratrop 3mg/0.5mg Neb 3 Ml Vial) 3 ml NEB Q6R PRN; Protocol PRN Reason: Shortness Of Breath Or Wheezing Stop: 12/26/23 03:13 Atorvastatin Calcium (Atorvastatin 40 Mg Tab) 40 mg PO HS JEANNIE Stop: 12/26/23 20:59 Cyanocobalamin (Cyanocobalamin 1000 Mcg/Ml Vial) 1,000 mcg IM QAM JEANNIE Stop: 11/29/23 10:44 Last Admin: 11/26/23 11:37 Dose: 1,000 mcg Cyanocobalamin (Cyanocobalamin (B-12) 500 Mcg Tablet) 500 mcg PO QAM JEANNIE Stop: 12/29/23 08:59 Escitalopram Oxalate (Escitalopram Oxalate 20 Mg Tab) 20 mg PO QAM JEANNIE Stop: 12/26/23 08:59 Last Admin: 11/26/23 08:36 Dose: 20 mg Finasteride (Finasteride 5 Mg Tab) 5 mg PO HS JEANNIE Stop: 12/26/23 20:59 Furosemide (Furosemide Inj 20 Mg/2 Ml Vial) 20 mg IV [id number] JEANNIE Stop: 12/26/23 16:59 Pantoprazole Sodium 40 mg/ (Syringe) 10 mls @ 5 mls/min IV BID JEANNIE Stop: 12/26/23 08:59 Last Admin: 11/26/23 08:35 Dose: 5 mls/min Levothyroxine Sodium (Levothyroxine Sodium 75 Mcg Tablet) 75 mcg PO DAILYBB JEANNIE Stop: 12/26/23 06:29 Last Admin: 11/26/23 06:32 Dose: 75 mcg Ondansetron HCl (Ondansetron Inj 2 Mg/Ml 2 Ml Vial) 4 mg IV Q6H PRN PRN Reason: Nausea Stop: 12/26/23 03:13 Oxybutynin Chloride (Oxybutynin Chloride 5 Mg Tab) 5 mg PO HS JEANNIE Stop: 12/26/23 20:59 Perphenazine (Perphenazine 4 Mg Tab) 12 mg PO HS JEANNIE Stop: 12/26/23 20:59 Polyethylene Glycol (Polyethylene (Miralax) 17 Gm Pack) 17 gm PO DAILY PRN PRN Reason: Constipation Stop: 12/26/23 03:13 Tamsulosin HCl (Tamsulosin Hcl 0.4 Mg Cap) 0.4 mg PO [facility] Stop: 12/26/23 20:59 PG Care Time/CCT Total # of Minutes Spent Total Time Spent with Patient: Total time spent is greater than 50% in coordination of care (as documented) at patient's floor/unit and/or counseling patient: Coding Level of Care Code 55662 INT INP/OBS CARE 3/75MIN Diagnoses Acute heart failure with mildly reduced ejection fraction (HFmrEF, 41-49%) I50.21 Elevated troponin R79.89 Cardiomyopathy I42.9 Pericardial effusion I31.39 Aneurysm of thoracic aorta I71.20 SSS (sick sinus syndrome) I49.5 Pacemaker Z95.0
[2023-11-26] MEDS: FUROSEMIDE INJ 20 MG/2 ML VIAL IV SCH (18:02)
[2023-11-26] MEDS: ACETAMINOPHEN 325 MG TAB PO PRN (18:02)
[2023-11-26] MEDS: TAMSULOSIN HCL 0.4 MG CAP PO SCH (20:49)
[2023-11-26] MEDS: FINASTERIDE 5 MG TAB PO SCH (20:49)
[2023-11-26] MEDS: oxyBUTYnin chloride 5 MG TAB PO SCH (20:49)
[2023-11-26] MEDS: ATORVASTATIN 40 MG TAB PO SCH (20:49)
[2023-11-26] MEDS: PERPHENAZINE 4 MG TAB PO SCH (20:50)
[2023-11-27 06:55] LABS: Basophils # (auto) 0.04 K/uL (0.00-0.20); Basophils % (auto) 0.5 %; Eosinophils % (auto) 2.6 %; Hemoglobin 12.7 g/dl (14.0-18.0); Immature Granulocytes # (auto) 0.02 K/uL (0.01-0.20); Immature Granulocytes % (auto) 0.3 %; Lymphocytes # (auto) 1.41 K/uL (1.20-3.40); Lymphocytes % (auto) 18.4 %; Mean Corpuscular Hemoglobin 30.7 pg (25.0-34.0); Mean Corpuscular Hgb Conc 33.4 g/dL (32.0-36.0); Mean Corpuscular Volume 91.8 fL (80.0-100.0); Mean Platelet Volume 10.6 fL (9.4-12.4); Monocytes # (auto) 1.21 K/uL (0.11-0.59); Monocytes % (auto) 15.8 %; Neutrophils # (auto) 4.77 K/uL (1.40-6.50); Neutrophils % (auto) 62.4 %; Platelet Count 251 K/uL (130-400); RDW Coefficient of Variation 14.3 % (11.5-14.5); RDW Standard Deviation 47.8 fL (36.4-46.3); Red Blood Count 4.14 M/uL (4.70-6.10); White Blood Count 7.65 K/ul (4.8-10.8)
[2023-11-27 07:30] LABS: Thyroid Stimulating Hormone 1.943 uIu/ml (0.300-4.500)
[2023-11-27 07:36] LABS: Calcium 9.2 mg/dl (8.6-10.3); Magnesium 1.9 mg/dl (1.7-2.4); Potassium 3.8 mmol/L (3.5-5.1)
[2023-11-27 07:42] LABS: BUN Creatinine Ratio 24.4 (10-20); Creatinine Clr Calc Pharmacy 72.4 ml/min; Est GFR (African American) 95.6 ml/min; Est GFR (Non-African American) 82.5 ml/min
[2023-11-27] MEDS: POTASSIUM CHLORIDE CRTAB 20 MEQ TABCR PO STA (08:58)
[2023-11-27] MEDS: CLOPIDOGREL BISULFATE 75 MG TAB PO SCH (08:58)
[2023-11-27] MEDS: EMPAGLIFLOZIN 10 MG TAB PO SCH (08:59)
[2023-11-27] MEDS: MAGNESIUM OXIDE 400 MG TAB PO SCH (08:59)
[2023-11-27 09:29] LABS: Estimated Average Glucose 114 mg/dl; Hemoglobin A1C 5.6 % (4.5-5.6)
--- NOTE | 2023-11-27 10:22 | Hospitalist Progress Note ---
Date of Service November 27, 2023 Assessment & Plan (1) Acute hypoxic respiratory failure: (2) Acute heart failure with mildly reduced ejection fraction (HFmrEF, 41-49%): (3) Elevated troponin: (4) SSS (sick sinus syndrome): (5) Hypertension: (6) Pacemaker: (7) Hypertrophic cardiomyopathy: (8) H/O: CVA (cerebrovascular accident): (9) Hypothyroidism: (10) Dementia: (11) BPH w urinary obs/LUTS: (12) Depression: Plan 78-year-old male with past medical history of CVA, history of tachybradycardia syndrome status post pacemaker, BPH, hypothyroidism, dementia, depression who lives at the [facility] was brought in by ambulance after he was found to be complaining of shortness of breath and hypoxic saturating in the 80s. #Acute hypoxic respiratory failure likely secondary to CHF #Acute systolic congestive heart failure with mildly reduced ejection fraction, EF of 45 to 50% #Elevated troponin: Likely type II GA in setting of demand ischemia from CHF #Hypertrophic cardiomyopathy #Essential hypertension #Hyperlipidemia #History of CVA #History of tachybradycardia syndrome status post pacemaker #Thoracic aortic aneurysm #Pericardial effusion Outpatient dispatch lead Dr. Bonilla Patient was seen by cardiology: Dr. Wilmer Mcmillan Cardiology recommended diuresis with IV Lasix 20 mg twice daily Cardiology started him on SGLT 2 inhibitor Jardiance Continue Plavix plus statin I/O monitoring Daily weights Low-sodium diet Heart failure program referral done by cardiology Cardiology spoke with the patient's daughter Lynn who is a PA-C: Daughter does not want to pursue cardiac MRI to evaluate for amyloidosis and also is not interested in an ischemic evaluation. She is okay with SPEP and UPEP SPEP and UPEP have been sent: Results pending As per cardiology note from 11/26/2023: Patient has not tolerated beta-blockers o r JULI inhibitors/ARB in the past due to lightheadedness. With respect to pericardial effusion, as per cardiology the small without hemodynamic significance and can be monitored over time and appears to be chronic. Check repeat chest x-ray today Patient is currently requiring 2 L of oxygen via nasal cannula: Wean as tolerated Await further cardiology recommendations #Hypothyroidism TSH is 1.943 Continue levothyroxine 75 mcg p.o. daily #BPH Continue Flomax, finasteride, oxybutynin and resume doxazosin 4 mg p.o. nightly #Dementia #Depression Continue Lexapro 20 mg daily and perphenazine 12 mg p.o. nightly Supportive care from nursing staff #Vitamin B12 deficiency B12 level is 275 Folate is 9.36 Vitamin B12 supplementation CODE STATUS: Discussed with patient and he wishes to be DNR/DNI: Discussed with daughter Lynn on the phone and she wants to honor his wishes DVT prophylaxis: Start Lovenox 40 mg subcutaneous daily Discharge planning back to [facility] with home health likely in the next 24 to 48 hours based on cardiology recommendations and clinical improvement Care plan discussed with patient, nursing staff, case management and daughter Lynn Green ([phone]) updated on the phone Admission and Anticipated Discharge Date Admission Date: November 26, 2023 Subjective Patient seen and examined Overall states breathing is better Complaining of slight dizziness on ambulation today Denies any chest pain, shortness of breath, cough, fever, chills Tolerating oral diet without any issues Review of Systems Review of Systems: As per HPI Physical Exam Physical Exam: General: No acute distress Psych: Awake and alert HEENT: Anicteric sclera, moist oral mucosa CVS: Regular rate and rhythm, pacemaker noted Lungs: Bilateral air entry, no wheezing noted Abdomen: Soft, nontender, no rebound, no guarding Ext: No lower extremity edema, no calf tenderness Results & Data Results & Data Vital Signs (Past 12 Hours) Vital Signs Temp Pulse Pulse Resp BP BP Pulse Ox 11/27/23 07:50 36.9 C 88 18 167/94 H 95 11/27/23 07:30 11/27/23 07:14 84 11/27/23 03:42 36.7 C 87 18 176/97 H 96 11/26/23 22:30 36.6 C 82 18 159/92 H 96 O2 Del Method O2 Flow Rate 11/27/23 07:50 Nasal Cannula 2 11/27/23 07:30 Nasal Cannula 2 11/27/23 07:14 11/27/23 03:42 Nasal Cannula 1 11/26/23 22:30 Nasal Cannula 2 Laboratory Results Laboratory Results - last 24 hr 11/26/23 11/26/23 11/26/23 14:42 19:48 20:45 WBC RBC Hgb Hct MCV MCH MCHC RDW Std Deviation RDW Coeff of Esteban Plt Count MPV Immature Gran % (Auto) Neut % (Auto) Lymph % (Auto) [place] % (Auto) Eos % (Auto) Baso % (Auto) Neut # (Auto) Lymph # (Auto) [place] # (Auto) Eos # (Auto) Baso # (Auto) Immature Gran # (Auto) Sodium Potassium Chloride Carbon Dioxide Anion Gap BUN Creatinine Est Cr Clr Drug Dosing Est GFR ( Amer) Est GFR (Non-Af Amer) BUN/Creatinine Ratio Glucose Estimat Average Glucose Hemoglobin A1c Calcium Magnesium Troponin I High Sens 60.7 H* 57.9 H* TSH U Random Total Protein Pending Ur Creatinine mg/dL Pending Protein/Creatinin Ratio Pending Urine Albumin (%) Pending U Sutio-1-Eaydcpuu (%) Pending U Bxrsj-5-Mhxnelap (%) Pending U Beta Globulin (%) Pending U Gamma Globulin (%) Pending U Abnormal Prot Band 1 Pending U Abnormal Prot Band 2 Pending U Abnormal Prot Band 3 Pending Urine PEP Interpret Pending Serum Immunofixation Free Keyes LC, Quant Free Lambda LC, Quant Free Keyes/Lambda Ratio 11/27/23 06:17 WBC 7.65 RBC 4.14 L Hgb 12.7 L Hct 38.0 L MCV 91.8 MCH 30.7 MCHC 33.4 RDW Std Deviation 47.8 H RDW Coeff of Esteban 14.3 Plt Count 251 MPV 10.6 Immature Gran % (Auto) 0.3 Neut % (Auto) 62.4 Lymph % (Auto) 18.4 [place] % (Auto) 15.8 Eos % (Auto) 2.6 Baso % (Auto) 0.5 Neut # (Auto) 4.77 Lymph # (Auto) 1.41 Labette # (Auto) 1.21 H Eos # (Auto) 0.20 Baso # (Auto) 0.04 Immature Gran # (Auto) 0.02 Sodium 140 Potassium 3.8 Chloride 103 Carbon Dioxide 29 Anion Gap 8 BUN 21 Creatinine 0.86 Est Cr Clr Drug Dosing 72.4 Est GFR ( Amer) 95.6 Est GFR (Non-Af Amer) 82.5 BUN/Creatinine Ratio 24.4 H Glucose 106 H Estimat Average Glucose 114 Hemoglobin A1c 5.6 Calcium 9.2 Magnesium 1.9 Troponin I High Sens TSH 1.943 U Random Total Protein Ur Creatinine mg/dL Protein/Creatinin Ratio Urine Albumin (%) U Iwktn-4-Kbxigzkx (%) U Yhvxj-4-Qhlbszxo (%) U Beta Globulin (%) U Gamma Globulin (%) U Abnormal Prot Band 1 U Abnormal Prot Band 2 U Abnormal Prot Band 3 Urine PEP Interpret Serum Immunofixation Pending Free Keyes LC, Quant Pending Free Lambda LC, Quant Pending Free Keyes/Lambda Ratio Pending Diagnostic Findings Chest X-Ray 11/26/23 00:04 SINGLE VIEW CHEST CLINICAL HISTORY: Dyspnea FINDINGS: 2 AP, portable, upright chest radiographs are compared to study dated 02/05/2023 and correlated with chest CT dated 11/05/2020. A 2-lead cardiac pacemaker is unchanged in position and partially obscures the left mid chest. The heart is enlarged noting atherosclerotic calcification of the thoracic aorta. The pulmonary vasculature is noncongested. Chronic interstitial thickening is similar to previous. There is airspace consolidation of the left lung base. A small left pleural effusion is suspected. No pneumothorax is seen. The bony thorax is grossly intact. A left shoulder arthroplasty is in place. Arthritic change is seen in the right shoulder. IMPRESSION: 1. Cardiomegaly and cardiac pacemaker without radiographic evidence of congestive failure. 2. Left basilar consolidation. This could represent atelectasis versus pneumonia/aspiration pneumonitis and clinical correlation will be required. Radiographic follow-up to resolution is recommended. 3. Suspect a small left pleural effusion ACT 112: Negative or not required by law. Electronically signed by: Lee Camacho M.D. 11/26/2023 7:47 AM PG Care Time/CCT Total # of Minutes Spent Total Time Spent with Patient: Total time spent is greater than 50% in coordination of care (as documented) at patient's floor/unit and/or counseling patient: Coding Level of Care Code 13804 SUB INP/OBS CARE 3/50MIN Diagnoses Acute hypoxic respiratory failure J96.01 Acute heart failure with mildly reduced ejection fraction (HFmrEF, 41-49%) I50.21 Elevated troponin R79.89 SSS (sick sinus syndrome) I49.5 Essential hypertension I10 Hypertension type: essential hypertension Pacemaker Z95.0 Hypertrophic cardiomyopathy I42.2 H/O: CVA (cerebrovascular accident) Z86.73 Hypothyroidism E03.9 Dementia F03.90 BPH w urinary obs/LUTS N40.1; N13.8 Depression F32.9 (5) Hypertension Hypertension type: essential hypertension Qualified Code(s): I10 - Essential (primary) hypertension
--- NOTE | 2023-11-27 12:42 | Cardiology Progress Note ---
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 Use low dose diuretics. Unclear why he was not on BB as outpatient. Consider adding either carvedilol vs. metoprolol succinate given the primarily diastolic CHF. According to his most recent PPM checks he has had no significant Afib burden. Admission and Anticipated Discharge Date Admission Date: November 26, 2023 Subjective Cardiology follow up for [facility] Pt seen after back from radiology for CXR. Feels comfortable reports swelling is better, denies CP or SOB currently ECHO reviewed-reported as having severe concentric LVH EF 45-50% hx Biotronic PPM Apaced 75%; Vpaced <1% Review of Systems Review of Systems: All systems reviewed & are unremarkable except as noted in HPI & below Physical Exam Physical Exam: elderly Constitutional: in NAD Respiratory: diminished BL Cardiovascular: heart regular Results & Data Vital Signs (Past 12 Hours) Vital Signs Temp Pulse Pulse Resp BP BP Pulse Ox 11/27/23 11:58 36.9 C 88 16 149/86 H 94 11/27/23 07:50 36.9 C 88 18 167/94 H 95 11/27/23 07:30 11/27/23 07:14 84 11/27/23 03:42 36.7 C 87 18 176/97 H 96 O2 Del Method O2 Flow Rate 11/27/23 11:58 Nasal Cannula 2 11/27/23 07:50 Nasal Cannula 2 11/27/23 07:30 Nasal Cannula 2 11/27/23 07:14 11/27/23 03:42 Nasal Cannula 1 Laboratory Results Abnormal lab results 11/26/23 11/26/23 11/27/23 Range/Units 14:42 19:48 06:17 RBC 4.14 L (4.70-6.10) M/uL Hgb 12.7 L (14.0-18.0) g/dl Hct 38.0 L (42.0-52.0) % RDW Std Deviation 47.8 H (36.4-46.3) fL [place] # (Auto) 1.21 H (0.11-0.59) K/uL BUN/Creatinine Ratio 24.4 H (10-20) Glucose 106 H (70-99(Fasting)) mg/dl Troponin I High Sens 60.7 H* 57.9 H* (0-20) pg/ml Medications Administered Current Inpatient Medications Acetaminophen (Acetaminophen 325 Mg Tab) 650 mg PO Q4H PRN PRN Reason: Pain or Fever Stop: 12/26/23 03:13 Last Admin: 11/26/23 18:02 Dose: 650 mg Al Hydrox/Mg Hydrox/Simethicone (Aluminum/Magnesium Susp 30 Ml Udc) 15 ml PO Q4H PRN PRN Reason: Dyspepsia Stop: 12/26/23 03:13 Albuterol (Albut/Ipratrop 3mg/0.5mg Neb 3 Ml Vial) 3 ml NEB Q6R PRN; Protocol PRN Reason: Shortness Of Breath Or Wheezing Stop: 12/26/23 03:13 Atorvastatin Calcium (Atorvastatin 40 Mg Tab) 40 mg PO HS [facility] Stop: 12/26/23 20:59 Last Admin: 11/26/23 20:49 Dose: 40 mg Clopidogrel Bisulfate (Clopidogrel Bisulfate 75 Mg Tab) [facility] Stop: 12/27/23 08:59 Last Admin: 11/27/23 08:58 Dose: 75 mg Cyanocobalamin (Cyanocobalamin 1000 Mcg/Ml Vial) 1,000 mcg IM QAM [facility] Stop: 11/29/23 10:44 Last Admin: 11/27/23 08:59 Dose: 1,000 mcg Cyanocobalamin (Cyanocobalamin (B-12) 500 Mcg Tablet) 500 [facility] Stop: 12/29/23 08:59 Doxazosin Mesylate (Doxazosin Mesylate 4 Mg Tab) 4 mg PO [facility] Stop: 12/27/23 20:59 Empagliflozin (Empagliflozin 10 Mg Tab) 10 mg PO DAILY EJANNIE Stop: 12/27/23 08:59 Last Admin: 11/27/23 08:59 Dose: 10 mg Escitalopram Oxalate (Escitalopram Oxalate 20 Mg Tab) [facility] Stop: 12/26/23 08:59 Last Admin: 11/27/23 08:59 Dose: 20 mg Finasteride (Finasteride 5 Mg Tab) 5 mg PO HS [facility] Stop: 12/26/23 20:59 Last Admin: 11/26/23 20:49 Dose: 5 mg Furosemide (Furosemide Inj 20 Mg/2 Ml Vial) 20 mg IV [id number] JEANNIE Stop: 12/26/23 16:59 Last Admin: 11/27/23 08:59 Dose: 20 mg Pantoprazole Sodium 40 mg/ (Syringe) 10 mls @ 5 mls/min IV BID JEANNIE Stop: 12/26/23 08:59 Last Admin: 11/27/23 09:00 Dose: 5 mls/min Levothyroxine Sodium (Levothyroxine Sodium 75 Mcg Tablet) 75 mcg PO DAILYBB JEANNIE Stop: 12/26/23 06:29 Last Admin: 11/27/23 06:02 Dose: 75 mcg Magnesium Oxide (Magnesium Oxide 400 Mg Tab) 400 mg PO BID [facility] Stop: 11/30/23 08:59 Last Admin: 11/27/23 08:59 Dose: 400 mg Ondansetron HCl (Ondansetron Inj 2 Mg/Ml 2 Ml Vial) 4 mg IV Q6H PRN PRN Reason: Nausea Stop: 12/26/23 03:13 Oxybutynin Chloride (Oxybutynin Chloride 5 Mg Tab) 5 mg PO HS [facility] Stop: 12/26/23 20:59 Last Admin: 11/26/23 20:49 Dose: 5 mg Perphenazine (Perphenazine 4 Mg Tab) 12 mg PO HS [facility] Stop: 12/26/23 20:59 Last Admin: 11/26/23 20:50 Dose: 12 mg Polyethylene Glycol (Polyethylene (Miralax) 17 Gm Pack) 17 gm PO DAILY PRN PRN Reason: Constipation Stop: 12/26/23 03:13 Tamsulosin HCl (Tamsulosin Hcl 0.4 Mg Cap) 0.4 mg PO HS [facility] Stop: 12/26/23 20:59 Last Admin: 11/26/23 20:49 Dose: 0.4 mg Home Medications perphenazine 4 mg tablet 12 mg PO HS 06/05/20 [History Confirmed 11/26/23] escitalopram oxalate 20 mg tablet 20 mg PO QAM 11/05/20 [History Confirmed 11/26/23] atorvastatin 40 mg tablet 40 mg PO HS #90 tabs 04/24/22 [Rx Confirmed 09/08/23] clopidogrel 75 mg tablet 75 mg PO QAM #90 tabs 04/24/22 [Rx Confirmed 09/08/23] finasteride 5 mg tablet 5 mg PO HS #90 tabs 04/24/22 [Rx Confirmed 11/26/23] levothyroxine 75 mcg tablet 75 mcg PO QAM #90 tabs 04/24/22 [Rx Confirmed 09/08/23] oxybutynin chloride 5 mg tablet 5 mg PO HS 90 days #90 tabs 07/14/22 [Rx Confirmed 11/26/23] tamsulosin 0.4 mg capsule 0.4 mg PO HS #90 caps 06/11/23 [Rx Confirmed 11/26/23] omeprazole 40 mg capsule,delayed release 40 mg PO DAILY #90 caps 08/25/23 [Rx Confirmed 09/08/23] acetaminophen 650 mg tablet,extended release 650 mg PO TID 09/08/23 [History Confirmed 09/08/23] calcium citrate 315 mg-vitamin D3 5 mcg (200 unit) tablet (Calcium Citrate + D) 2 tab PO DAILY 09/08/23 [History Confirmed 09/08/23] cholecalciferol (vitamin D3) 25 mcg (1,000 unit) tablet (Vitamin D3) 25 mcg PO QAM 09/08/23 [History Confirmed 09/08/23] loperamide 2 mg capsule (Imodium A-D) 2 mg PO QID PRN Diarrhea 09/08/23 [History Confirmed 09/08/23] nystatin 100,000 unit/mL oral suspension See Rx Instructions .Route .COMPLEX 09/08/23 [History Confirmed 09/08/23] vit C 250 mg-vit E 90 mg-zinc 40 mg-copper 1 [id number] capsule (PreserVision AREDS-2) 1 tab PO BID 09/08/23 [History Confirmed 09/08/23] cephalexin 500 mg capsule 500 mg PO TID 5 days #15 caps 10/07/23 [Rx] doxazosin 8 mg tablet 4 mg PO HS 11/26/23 [History Confirmed 11/26/23] Active Medications Acetaminophen (Acetaminophen 325 Mg Tab) 650 mg PO Q4H PRN PRN Reason: Pain or Fever Stop: 12/26/23 03:13 Last Admin: 11/26/23 18:02 Dose: 650 mg Al Hydrox/Mg Hydrox/Simethicone (Aluminum/Magnesium Susp 30 Ml Udc) 15 ml PO Q4H PRN PRN Reason: Dyspepsia Stop: 12/26/23 03:13 Albuterol (Albut/Ipratrop 3mg/0.5mg Neb 3 Ml Vial) 3 ml NEB Q6R PRN; Protocol PRN Reason: Shortness Of Breath Or Wheezing Stop: 12/26/23 03:13 Atorvastatin Calcium (Atorvastatin 40 Mg Tab) 40 mg PO HS JEANNIE Stop: 12/26/23 20:59 Last Admin: 11/26/23 20:49 Dose: 40 mg Clopidogrel Bisulfate (Clopidogrel Bisulfate 75 Mg Tab) 75 mg PO QAM JEANNIE Stop: 12/27/23 08:59 Last Admin: 11/27/23 08:58 Dose: 75 mg Cyanocobalamin (Cyanocobalamin 1000 Mcg/Ml Vial) 1,000 mcg IM QAM JEANNIE Stop: 11/29/23 10:44 Last Admin: 11/27/23 08:59 Dose: 1,000 mcg Cyanocobalamin (Cyanocobalamin (B-12) 500 Mcg Tablet) 500 mcg PO QA JEANNIE Stop: 12/29/23 08:59 Doxazosin Mesylate (Doxazosin Mesylate 4 Mg Tab) 4 mg PO HS JEANNIE Stop: 12/27/23 20:59 Empagliflozin (Empagliflozin 10 Mg Tab) 10 mg PO DAILY JEANNIE Stop: 12/27/23 08:59 Last Admin: 11/27/23 08:59 Dose: 10 mg Escitalopram Oxalate (Escitalopram Oxalate 20 Mg Tab) 20 mg PO QAM JEANNIE Stop: 12/26/23 08:59 Last Admin: 11/27/23 08:59 Dose: 20 mg Finasteride (Finasteride 5 Mg Tab) 5 mg PO HS JEANNIE Stop: 12/26/23 20:59 Last Admin: 11/26/23 20:49 Dose: 5 mg Furosemide (Furosemide Inj 20 Mg/2 Ml Vial) 20 mg IV [id number] JEANNIE Stop: 12/26/23 16:59 Last Admin: 11/27/23 08:59 Dose: 20 mg Pantoprazole Sodium 40 mg/ (Syringe) 10 mls @ 5 mls/min IV BID JEANNIE Stop: 12/26/23 08:59 Last Admin: 11/27/23 09:00 Dose: 5 mls/min Levothyroxine Sodium (Levothyroxine Sodium 75 Mcg Tablet) 75 mcg PO DAILYBB [facility] Stop: 12/26/23 06:29 Last Admin: 11/27/23 06:02 Dose: 75 mcg Magnesium Oxide (Magnesium Oxide 400 Mg Tab) 400 mg PO BID [facility] Stop: 11/30/23 08:59 Last Admin: 11/27/23 08:59 Dose: 400 mg Ondansetron HCl (Ondansetron Inj 2 Mg/Ml 2 Ml Vial) 4 mg IV Q6H PRN PRN Reason: Nausea Stop: 12/26/23 03:13 Oxybutynin Chloride (Oxybutynin Chloride 5 Mg Tab) 5 mg PO HS [facility] Stop: 12/26/23 20:59 Last Admin: 11/26/23 20:49 Dose: 5 mg Perphenazine (Perphenazine 4 Mg Tab) 12 mg PO HS [facility] Stop: 12/26/23 20:59 Last Admin: 11/26/23 20:50 Dose: 12 mg Polyethylene Glycol (Polyethylene (Miralax) 17 Gm Pack) 17 gm PO DAILY PRN PRN Reason: Constipation Stop: 12/26/23 03:13 Tamsulosin HCl (Tamsulosin Hcl 0.4 Mg Cap) 0.4 mg PO HS [facility] Stop: 12/26/23 20:59 Last Admin: 11/26/23 20:49 Dose: 0.4 mg ECG Additional Comments: Apaced, PVCs, anteroseptal [place]
[2023-11-27] MEDS: METOPROLOL SUCC 25MG EXT REL TAB PO SCH ×2 (14:01→14:27)
--- NOTE | 2023-11-27 14:58 | XRay Report ---
[facility] TWO VIEW CHEST CLINICAL HISTORY: Pleural effusion. FINDINGS: AP and lateral chest radiographs are compared to study dated 11/26/2023. A 2-lead cardiac pa cemaker is in place and partially obscures the left upper chest. The heart is enlarged. The pulmonary vasculature is not congested. Nonspecific interstitial thickening is likely chronic. There are small pleural effusions with dependent consolidation. There is no pneumothorax. The skeletal structures ar e osteopenic. The bony thorax appears intact. A left shoulder arthroplasty is in place. Advanced arth ritic changes noted in the right shoulder. IMPRESSION: 1. Cardiomegaly and cardiac pacemaker without radiographic evidence of congestive failure. 2. Small pleural effusions with dependent consolidation. This may represent atelectasis and clinical correlation will be required. ACT 112: Negative or not required by law. Electronically signed by: Lee Camacho M.D. 11/27/2023 11:27 AM
[2023-11-27] MEDS: DOXAZosin MESYLATE TAB 2 MG TAB PO SCH (20:17)
[2023-11-27] MEDS ORDERED: DOXAZosin MESYLATE 4 MG TAB PO SCH (21:00)
[2023-11-28 07:17] LABS: BUN Creatinine Ratio 29.1 (10-20); Calcium 9.3 mg/dl (8.6-10.3); Creatinine Clr Calc Pharmacy 71.9 ml/min; Est GFR (African American) 95.6 ml/min; Est GFR (Non-African American) 82.5 ml/min; Magnesium 2.1 mg/dl (1.7-2.4)
[2023-11-28] MEDS: ENOXAPARIN INJ 40 MG/0.4 ML SYR SQ SCH (08:59)
[2023-11-28] MEDS: BUMETANIDE 1 MG TAB PO SCH (10:08)
--- NOTE | 2023-11-28 12:22 | Hospitalist Progress Note ---
Date of Service November 28, 2023 Assessment & Plan (1) Acute hypoxic respiratory failure: (2) Acute heart failure with mildly reduced ejection fraction (HFmrEF, 41-49%): (3) Elevated troponin: (4) SSS (sick sinus syndrome): (5) Hypertension: (6) Pacemaker: (7) Hypertrophic cardiomyopathy: (8) H/O: CVA (cerebrovascular accident): (9) Hypothyroidism: (10) Dementia: (11) BPH w urinary obs/LUTS: (12) Depression: Plan 78-year-old male with past medical history of CVA, history of tachybradycardia syndrome status post pacemaker, BPH, hypothyroidism, dementia, depression who lives at the [facility] was brought in by ambulance after he was found to be complaining of shortness of breath and hypoxic saturating in the 80s. #Acute hypoxic respiratory failure likely secondary to CHF #Acute systolic congestive heart failure with mildly reduced ejection fraction, EF of 45 to 50% #Elevated troponin: Likely type II [place] in setting of demand ischemia from CHF #Hypertrophic cardiomyopathy #Essential hypertension #Hyperlipidemia #History of CVA #History of tachybradycardia syndrome status post pacemaker #Thoracic aortic aneurysm #Pericardial effusion Outpatient trimmer operator three knife Dr. Bonilla Patient was seen by cardiology: Dr. Wilmer Mcmillan Patient was diuresed with Lasix IV and has not been transition to Bumex 1 mg p.o. daily Repeat chest x-ray from 11/27/2023 shows improvement Cardiology started him on SGLT 2 inhibitor Jardiance Continue Plavix plus statin I/O monitoring Daily weights Low-sodium diet Heart failure program referral done by cardiology Cardiology spoke with the patient's daughter Lynn who is a PA-C: Daughter does not want to pursue cardiac MRI to evaluate for amyloidosis and also is not interested in an ischemic evaluation. She is okay with SPEP and UPEP SPEP and UPEP have been sent: Results pending As per cardiology note from 11/26/2023: Patient has not tolerated beta-blockers or JULI inhibitors/ARB in the past due to lightheadedness. With respect to pericardial effusion, as per cardiology the small without hemodynamic significance and can be monitored over time and appears to be chronic. Patient is currently requiring 2 L of oxygen via nasal cannula: Wean as tolerated Await further cardiology recommendations #Hypothyroidism TSH is 1.943 Continue levothyroxine 75 mcg p.o. daily #BPH Continue Flomax, finasteride, oxybutynin Reduce doxazosin to 1 mg p.o. nightly with hold parameters in light of orthostatic vital signs #Dementia #Depression Continue Lexapro 20 mg daily and perphenazine 12 mg p.o. nightly Supportive care from nursing staff #Vitamin B12 deficiency B12 level is 275 Folate is 9.36 Vitamin B12 supplementation CODE STATUS: DNR/DNI DVT prophylaxis: Lovenox 40 mg subcutaneous daily Discharge planning back to [facility] with home health likely tomorrow Care plan discussed with patient, nursing staff, case management and daughter Lynn Green ([phone]) updated on the phone Admission and Anticipated Discharge Date Admission Date: November 27, 2023 Subjective Patient seen and examined Labs reviewed Chest x-ray reviewed Vital signs reviewed Patient was orthostatic this morning Currently denies dizziness Denies any chest pain or shortness of breath He is still on oxygen Review of Systems Review of Systems: As per HPI Physical Exam Physical Exam: General: No acute distress Psych: Awake and alert HEENT: Anicteric sclera, moist oral mucosa CVS: Regular rate and rhythm, pacemaker noted Lungs: Bilateral air entry, no wheezing noted Abdomen: Soft, nontender, no rebound, no guarding Ext: No lower extremity edema, no calf tenderness Results & Data Results & Data Vital Signs (Past 12 Hours) Vital Signs Temp Pulse Pulse Resp BP BP Pulse Ox 11/28/23 11:52 37.1 C 77 18 133/84 94 11/28/23 11:29 11/28/23 07:40 36.5 C 75 18 125/80 93 11/28/23 07:36 74 11/28/23 07:30 11/28/23 03:36 36.7 C 77 18 122/66 95 Pulse Ox O2 Del Method O2 Flow Rate O2 Flow Rate 11/28/23 11:52 Nasal Cannula 2 11/28/23 11:29 94 2 11/28/23 07:40 Nasal Cannula 2 11/28/23 07:36 11/28/23 07:30 Nasal Cannula 2 11/28/23 03:36 Room Air Laboratory Results Laboratory Results - last 24 hr 11/28/23 06:26 Sodium 141 Potassium 4.0 Chloride 104 Carbon Dioxide 30 Anion Gap 7 BUN 25 H Creatinine 0.86 Est Cr Clr Drug Dosing 71.9 Est GFR ( Amer) 95.6 Est GFR (Non-Af Amer) 82.5 BUN/Creatinine Ratio 29.1 H Glucose 105 H Calcium 9.3 Magnesium 2.1 Iron 47 TIBC 319 Unsaturated IBC 272 Transferrin % Sat 15 L Diagnostic Findings Chest X-Ray 11/27/23 10:25 Aida Kern SINGLE VIEW CHEST CLINICAL HISTORY: Fall. FINDINGS: An AP, portable, upright chest radiograph is compared to study dated 11/26/2023 and correlated with chest CT dated 09/27/2013. The cardiomediastinal silhouette is top normal for projection. Chronic residual thickening is similar to previous. There is mild bibasilar scarring/atelectasis. The lungs and pleural spaces are otherwise clear. No pneumothorax is seen. The skeletal structures are osteopenic. The bony thorax is grossly intact. Cholecystectomy clips are noted in the right upper quadrant. IMPRESSION: No active disease in the chest. ACT 112: Negative or not required by law. Electronically signed by: Lee Camacho M.D. 11/27/2023 11:31 AM PG Care Time/CCT Total # of Minutes Spent Total Time Spent with Patient: Total time spent is greater than 50% in coordination of care (as documented) at patient's floor/unit and/or counseling patient: Coding Level of Care Code 43921 SUB INP/OBS CARE 2/35MIN Diagnoses Acute hypoxic respiratory failure J96.01 Acute heart failure with mildly reduced ejection fraction (HFmrEF, 41-49%) I50.21 Elevated troponin R79.89 SSS (sick sinus syndrome) I49.5 Essential hypertension I10 Hypertension type: essential hypertension Pacemaker Z95.0 Hypertrophic cardiomyopathy I42.2 H/O: CVA (cerebrovascular accident) Z86.73 Hypothyroidism E03.9 Dementia F03.90 BPH w urinary obs/LUTS N40.1; N13.8 Depression F32.9 (5) Hypertension Hypertension type: essential hypertension Qualified Code(s): I10 - Essential (primary) hypertension
--- NOTE | 2023-11-28 12:51 | Cardiology Progress Note ---
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 Unclear why he was not on BB as outpatient. Consider adding either carvedilol vs. metoprolol succinate given the primarily diastolic CHF. According to his most recent PPM checks he has had no significant Afib burden. Follow blood pressures closely. Would consider holding finasteride or tamsulosin given that both of these can potentially cause orthostasis. Admission and Anticipated Discharge Date Admission Date: November 27, 2023 Subjective Cardiology follow up for [facility] Pt seen after back from radiology for CXR. Feels comfortable reports swelling is better, denies CP or SOB currently ECHO reviewed-reported as having severe concentric LVH EF 45-50% hx Biot[employer] PPM Apaced 75%; Vpaced <1% feels less SOB decreased edema RN notified me he does have orthostatic drop in BP Review of Systems Review of Systems: All systems reviewed & are unremarkable except as noted in HPI & below Physical Exam Physical Exam: elderly, in NAD appears comfortable Respiratory: Breath sounds normal bilaterally decreased at bases Cardiovascular: Heart regular soft systolic murmur Only trace edema Results & Data Vital Signs (Past 12 Hours) Vital Signs Temp Pulse Pulse Resp BP BP Pulse Ox 11/28/23 11:52 37.1 C 77 18 133/84 94 11/28/23 11:29 11/28/23 07:40 36.5 C 75 18 125/80 93 11/28/23 07:36 74 11/28/23 07:30 11/28/23 03:36 36.7 C 77 18 122/66 95 Pulse Ox O2 Del Method O2 Flow Rate O2 Flow Rate 11/28/23 11:52 Nasal Cannula 2 11/28/23 11:29 94 2 11/28/23 07:40 Nasal Cannula 2 11/28/23 07:36 11/28/23 07:30 Nasal Cannula 2 11/28/23 03:36 Room Air Laboratory Results Abnormal lab results 11/28/23 Range/Units 06:26 BUN 25 H (6-23) mg/dl BUN/Creatinine Ratio 29.1 H (10-20) Glucose 105 H (70-99(Fasting)) mg/dl Transferrin % Sat 15 L (20-50) % Medications Administered Current Inpatient Medications Acetaminophen (Acetaminophen 325 Mg Tab) 650 mg PO Q4H PRN PRN Reason: Pain or Fever Stop: 12/26/23 03:13 Last Admin: 11/26/23 18:02 Dose: 650 mg Al Hydrox/Mg Hydrox/Simethicone (Aluminum/Magnesium Susp 30 Ml Udc) 15 ml PO Q4H PRN PRN Reason: Dyspepsia Stop: 12/26/23 03:13 Albuterol (Albut/Ipratrop 3mg/0.5mg Neb 3 Ml Vial) 3 ml NEB Q6R PRN; Protocol PRN Reason: Shortness Of Breath Or Wheezing Stop: 12/26/23 03:13 Atorvastatin Calcium (Atorvastatin 40 Mg Tab) 40 mg PO [facility] Stop: 12/26/23 20:59 Last Admin: 11/27/23 20:15 Dose: 40 mg Bumetanide (Bumetanide 1 Mg Tab) 1 mg PO [facility] Stop: 12/28/23 08:59 Last Admin: 11/28/23 10:08 Dose: 1 mg Clopidogrel Bisulfate (Clopidogrel Bisulfate 75 Mg Tab) 75 mg PO [facility] Stop: 12/27/23 08:59 Last Admin: 11/28/23 09:01 Dose: 75 mg Cyanocobalamin (Cyanocobalamin 1000 Mcg/Ml Vial) 1,000 mcg IM [facility] Stop: 11/29/23 10:44 Last Admin: 11/28/23 09:01 Dose: 1,000 mcg Cyanocobalamin (Cyanocobalamin (B-12) 500 Mcg Tablet) 500 mcg PO [facility] Stop: 12/29/23 08:59 Doxazosin Mesylate (Doxazosin Mesylate Tab 2 Mg Tab) 2 mg PO [facility] Stop: 12/27/23 20:59 Last Admin: 11/27/23 20:17 Dose: 2 mg Empagliflozin (Empagliflozin 10 Mg Tab) 10 mg PO DAILY [facility] Stop: 12/27/23 08:59 Last Admin: 11/28/23 09:01 Dose: 10 mg Enoxaparin Sodium (Enoxaparin Inj 40 Mg/0.4 Ml Syr) 40 mg SQ [facility] Stop: 12/28/23 08:59 Last Admin: 11/28/23 08:59 Dose: 40 mg Escitalopram Oxalate (Escitalopram Oxalate 20 Mg Tab) 20 mg PO QAM [facility] Stop: 12/26/23 08:59 Last Admin: 11/28/23 09:01 Dose: 20 mg Finasteride (Finasteride 5 Mg Tab) 5 mg PO HS [facility] Stop: 12/26/23 20:59 Last Admin: 11/27/23 20:15 Dose: 5 mg Pantoprazole Sodium 40 mg/ (Syringe) 10 mls @ 5 mls/min IV BID [facility] Stop: 12/26/23 08:59 Last Admin: 11/28/23 09:00 Dose: 5 mls/min Levothyroxine Sodium (Levothyroxine Sodium 75 Mcg Tablet) 75 mcg PO DAILYBB [facility] Stop: 12/26/23 06:29 Last Admin: 11/28/23 05:19 Dose: 75 mcg Magnesium Oxide (Magnesium Oxide 400 Mg Tab) 400 mg PO BID [facility] Stop: 11/30/23 08:59 Last Admin: 11/28/23 09:02 Dose: 400 mg Metoprolol Succinate (Metoprolol Succ 25mg Ext Rel Tab) [facility] Stop: 12/27/23 14:14 Last Admin: 11/28/23 09:00 Dose: 12.5 mg Ondansetron HCl (Ondansetron Inj 2 Mg/Ml 2 Ml Vial) 4 mg IV Q6H PRN PRN Reason: Nausea Stop: 12/26/23 03:13 Oxybutynin Chloride (Oxybutynin Chloride 5 Mg Tab) 5 mg PO [facility] Stop: 12/26/23 20:59 Last Admin: 11/27/23 20:15 Dose: 5 mg Perphenazine (Perphenazine 4 Mg Tab) 12 mg PO HS [facility] Stop: 12/26/23 20:59 Last Admin: 11/27/23 20:15 Dose: 12 mg Polyethylene Glycol (Polyethylene (Miralax) 17 Gm Pack) 17 gm PO DAILY PRN PRN Reason: Constipation Stop: 12/26/23 03:13 Tamsulosin HCl (Tamsulosin Hcl 0.4 Mg Cap) 0.4 mg PO [facility] Stop: 12/26/23 20:59 Last Admin: 11/27/23 20:15 Dose: 0.4 mg
[2023-11-28] MEDS: DOXAZOSIN MESYLATE 1 MG TAB PO SCH (20:37)
[2023-11-29 06:41] LABS: BUN Creatinine Ratio 31.5 (10-20); Calcium 9.1 mg/dl (8.6-10.3); Creatinine Clr Calc Pharmacy 68.4 ml/min; Est GFR (African American) 94.3 ml/min; Est GFR (Non-African American) 81.3 ml/min; Magnesium 2.2 mg/dl (1.7-2.4); Potassium 3.7 mmol/L (3.5-5.1)
[2023-11-29] MEDS: CYANOCOBALAMIN (B-12) 500 MCG TABLET PO SCH (09:41)
[2023-11-29] MEDS: PANTOprazole 40 MG in SYRINGE 0 ML IV SCH (09:42)
--- NOTE | 2023-11-29 12:02 | Discharge Summary ---
Discharge Summary Date of Service November 29, 2023 Principal Dx & Hospital Course #1 = Principal Diagnosis (1) Acute hypoxic respiratory failure: (2) Acute heart failure with mildly reduced ejection fraction (HFmrEF, 41-49%): (3) Elevated troponin: (4) SSS (sick sinus syndrome): (5) Hypertension: (6) Pacemaker: (7) Hypertrophic cardiomyopathy: (8) H/O: CVA (cerebrovascular accident): (9) Hypothyroidism: (10) Dementia: (11) BPH w urinary obs/LUTS: (12) Depression: Plan 78-year-old male with past medical history of CVA, history of tachybradycardia syndrome status post pacemaker, BPH, hypothyroidism, dementia, depression who lives at the [facility] was brought in by ambulance after he was found to be complaining of shortness of breath and hypoxic saturating in the 80s. #Acute hypoxic respiratory failure likely secondary to CHF #Acute systolic congestive heart failure with mildly reduced ejection fraction, EF of 45 to 50% #Elevated troponin: Likely type II [place] in setting of demand ischemia from CHF #Hypertrophic cardiomyopathy #Essential hypertension #Hyperlipidemia #History of CVA #History of tachybradycardia syndrome status post pacemaker #Thoracic aortic aneurysm #Pericardial effusion Outpatient spa associate Dr. Bonilla Patient was seen by cardiology: Dr. Wilmer Mcmillan Patient was diuresed with Lasix IV and has not been transition to Bumex 1 mg p.o. daily Repeat chest x-ray from 11/27/2023 shows improvement Cardiology started him on SGLT 2 inhibitor Jardiance Continue Plavix plus statin Heart failure program referral done by cardiology Cardiology spoke with the patient's daughter Lynn who is a PA-C: Daughter does not want to pursue cardiac MRI to evaluate for amyloidosis and also is not interested in an ischemic evaluation. She is okay with SPEP and UPEP SPEP and UPEP have been sent: Results pending As per cardiology note from 11/26/2023: Patient has not tolerated beta-blockers or JULI inhibitors/ARB in the past due to lightheadedness. Wellness Manager over the weekend Dr. Mayers recommended starting patient on beta- geena and I have started him on low-dose Toprol-XL 12.5 mg daily and he is tolerating the medication well without any issues With respect to pericardial effusion, as per cardiology the small without hemodynamic significance and can be monitored over time and appears to be chronic. Respiratory therapy saw the patient and 2 point evaluation was done yesterday and again this morning and patient does not need oxygen for home use. He is saturating well on room air #Hypothyroidism TSH is 1.943 Continue levothyroxine 75 mcg p.o. daily #BPH Continue Flomax, finasteride, oxybutynin Reduce doxazosin to 1 mg p.o. nightly in light of orthostatic vital signs Outpatient follow-up PCP #Dementia #Depression Continue Lexapro 20 mg daily and perphenazine 12 mg p.o. nightly Supportive care from nursing staff and from [facility] #Vitamin B12 deficiency B12 level is 275 Folate is 9.36 Vitamin B12 supplementation CODE STATUS: DNR/DNI Patient seen and examined. He denies any chest pain or shortness of breath. He is tolerating oral diet without any issues. Patient is stable for discharge to [facility]. I have gone over the discharge care plan with the patient and also updated his daughter Lynn Green ([phone]) on the phone on discharge plan, medications and follow-up Care plan discussed with patient, nursing staff, case management and daughter updated on the phone Admission HPI Per Admitting Provider 78 y/o with a PMHx of hypothyroidism, BPH with urinary incontinence, dementia, stable aortic arch aneurysm, and prior CVA here for evaluation of hypoxia. Found to be saturating in the 80s at the [facility] and was brought in by ambulance. He did get some duonebs en route as there was concern for wheezing. Patient with long standing SOB that has worsened over the last few days. Having trouble walking extended distances. No fevers or chills. Has had some nausea and vomiting with mild abdominal cramping, last emesis 2 or so days ago. Unsure if there was blood in this. No change in bowel habits - constipation or diarrhea. No blood in the stool. Does have reflux sometimes. Will also have some lightheadedness/dizziness. Had a pacemaker placed for tachy/atiya. No history of heart failure. No orthopnea or lower extremity swelling. Discharge Exam General: No acute distress Psych: Awake and alert HEENT: Anicteric sclera, moist oral mucosa CVS: Regular rate and rhythm, pacemaker noted Lungs: Bilateral air entry, no wheezing noted Abdomen: Soft, nontender, no rebound, no guarding Ext: No lower extremity edema, no calf tenderness Discharge Plan Discharge Items Patient Disposition: [facility] Reason For Visit: SOB Discharge Diagnosis: #Acute systolic congestive heart failure with mildly reduced ejection fraction, EF of 45 to 50% #Elevated troponin: Likely type II DC in setting of demand ischemia from CHF #Hypertrophic cardiomyopathy #Essential hypertension #Hyperlipidemia #History of CVA #History of tachybradycardia syndrome status post pacemaker #Thoracic aortic aneurysm #Pericardial effusion #Hypothyroidism #BPH #Dementia #Depression #Vitamin B12 deficiency Condition on Discharge: Good Activity: As commented below Activity Comment: TOLERATED WITH ASSISTANCE Non-emergency contact: Primary Care Provider Call non-emergency contact if: you have any medication questions, your symptoms worsen, your pain is not controlled and you have a fever Follow-up/Referrals: Myriam Sorensen PA-C [Physician Firewall Engineer] - 12/06/23 2:00 pm (Congestive Heart Failure Program Appointment Information Early follow up is essential to managing your heart failure. An appointment has been scheduled for you with the [facility] Heart Failure Program within 7 days of discharge. Anticipate this visit to be 30-60 minutes long. Please expect a ophthalmic medical technologist phone call from one of our nurses approximately 48 hours from discharge. They will al so be placing an order for lab work to be completed 1-2 days prior to your heart failure follow up appointment. Please be sure to have this done so we can go over the results when you come in. Office Location The cardiology office building is located in front of the hospital at [address]. Bring the following with you to your follow-up doctor appointments: Please bring your daily weight log any discharge paperwork all of your medication bottles with you to this visit. ) Sohail Nick, DO [Primary Care Provider] - Diet: Heart Healthy Addtl Attending Provider Instructions: DISCHARGE INSTRUCTION TO PATIENT/FAMILY: Follow-up with your primary care provider within 1 week regarding: Posthospital discharge, medication review, medication refills and follow-up on all your medical problems Please take all your discharge medications, discharge information and discharge instructions to all your doctors appointments. Avoid all NSAIDs including ibuprofen, Motrin, Advil, Aleve, naproxen, meloxicam, Toradol, diclofenac Follow-up with cardiology as an outpatient regarding heart failure and also results of tests which are pending: SPEP and UPEP Labs through PCP in 1 week: CBC, CMP, MG, VITAMIN D Pending Studies at Discharge: Yes Studies:: SPEP and UPEP: Follow-up with cardiology as outpatient for results Stand-Alone Forms: My [employer], Smoking Cessation Skilled Items Patient informed of condition?: Yes DNR: Yes Discharge Level of Care: Other Communicable Disease: No Discharge Prognosis: Stable Lines: None Urinary Catheter: No Medications and DC Order Prescriptions: New doxazosin 1 mg Tablet 1 mg PO HS Qty: 30 0RF metoprolol succinate 25 mg Tablet Extended Release 24 Hr 12.5 mg PO QAM Qty: 30 0RF magnesium oxide 400 mg (241.3 mg magnesium) Tablet 400 mg PO DAILY Qty: 7 0RF cyanocobalamin (vitamin B-12) 500 mcg Tablet 500 mcg PO QAM Qty: 30 0RF bumetanide 1 mg Tablet 1 mg PO QAM Qty: 30 0RF Jardiance 10 mg Tablet 10 mg PO DAILY Qty: 30 0RF Continued atorvastatin 40 mg tablet 40 mg PO HS Qty: 90 3RF clopidogrel 75 mg tablet 75 mg PO QAM Qty: 90 3RF finasteride 5 mg tablet 5 mg PO HS Qty: 90 3RF levothyroxine 75 mcg tablet 75 mcg PO QAM Qty: 90 3RF oxybutynin chloride 5 mg tablet 5 mg PO HS 90 Days Qty: 90 2RF tamsulosin 0.4 mg capsule 0.4 mg PO HS Qty: 90 3RF omeprazole 40 mg capsule,delayed release(DR/EC) 40 mg PO DAILY Qty: 90 3RF perphenazine 4 mg Tablet 12 mg PO HS Rx Instructions: 3 TABLET DOSE escitalopram oxalate 20 mg tablet 20 mg PO QAM cholecalciferol (vitamin D3) [Vitamin D3] 25 mcg (1,000 unit) Tablet 25 mcg PO QAM calcium citrate-vitamin D3 [Calcium Citrate + D] 315 mg-5 mcg (200 unit) Tablet 2 tab PO DAILY Rx Instructions: TAKE WITH FOOD acetaminophen [Tylenol Arthritis] 650 mg Tablet Extended Release 650 mg PO TID PreserVision AREDS-2 250-90-40-1 mg Capsule 1 tab PO BID Discontinued cephalexin 500 mg capsule 500 mg PO TID 5 Days Qty: 15 0RF nystatin 100,000 unit/mL suspension See Rx Instructions .ROUTE .COMPLEX Rx Instructions: SWISH & SPIT 5 ML 4 TIMES A DAILY NEEDED X10 DAYS. MUST COMPLETE FULL 10 DAYS TREATMENT EACH TIME. DISCARD ANY REMAINING MEDICATION loperamide [Imodium A-D] 2 mg Capsule 2 mg PO QID PRN (Reason: Diarrhea) doxazosin 8 mg tablet 4 mg PO HS Discharge Orders: Discharge Order- CHF (Routine); Ordered 11/29/23 Ordered By: Adonay Ortiz Admission Data Admit Date/Time: 11/27/23 10:22 Attending Provider: Adonay Ortiz Admit Provider: Leonarda Osullivan Primary Care Provider: Sohail Nick Other Providers: Enio Gutierrez; Kelvin Mcmillan; Myriam Sorensen Hospital Stay Data Consultations 11/26/23 01:17 ED Decision to Admit Stat 11/26/23 10:47 Consult Cardiology Routine 11/26/23 15:46 [facility] [place] Referral Routine Pending Results Patient Have Any Pending Studies at Discharge: Yes Discharge Instructions Given to Patient (Per Discharging Provider) DISCHARGE INSTRUCTION TO PATIENT/FAMILY: Follow-up with your primary care provider within 1 week regarding: Posthospital discharge, medication review, medication refills and follow-up on all your medical problems Please take all your discharge medications, discharge information and discharge instructions to all your doctors appointments. Avoid all NSAIDs including ibuprofen, Motrin, Advil, Aleve, naproxen, meloxicam, Toradol, diclofenac Follow-up with cardiology as an outpatient regarding heart failure and also results of tests which are pending: SPEP and UPEP Labs through PCP in 1 week: CBC, CMP, MG, VITAMIN D Coding Diagnoses Acute hypoxic respiratory failure J96.01 Acute heart failure with mildly reduced ejection fraction (HFmrEF, 41-49%) I50.21 Elevated troponin R79.89 SSS (sick sinus syndrome) I49.5 Essential hypertension I10 Hypertension type: essential hypertension Pacemaker Z95.0 Hypertrophic cardiomyopathy I42.2 H/O: CVA (cerebrovascular accident) Z86.73 Hypothyroidism E03.9 Dementia F03.90 BPH w urinary obs/LUTS N40.1; N13.8 Depression F32.9
--- NOTE | 2023-11-29 12:16 | Hospitalist Progress Note ---
Date of Service November 29, 2023 Assessment & Plan (1) Acute hypoxic respiratory failure: (2) Acute heart failure with mildly reduced ejection fraction (HFmrEF, 41-49%): (3) Elevated troponin: (4) SSS (sick sinus syndrome): (5) Hypertension: (6) Pacemaker: (7) Hypertrophic cardiomyopathy: (8) H/O: CVA (cerebrovascular accident): (9) Hypothyroidism: (10) Dementia: (11) BPH w urinary obs/LUTS: (12) Depression: Plan 78-year-old male with past medical history of CVA, history of tachybradycardia syndrome status post pacemaker, BPH, hypothyroidism, dementia, depression who lives at the [facility] was brought in by ambulance after he was found to be complaining of shortness of breath and hypoxic saturating in the 80s. #Acute hypoxic respiratory failure likely secondary to CHF #Acute systolic congestive heart failure with mildly reduced ejection fraction, EF of 45 to 50% #Elevated troponin: Likely type II [place] in setting of demand ischemia from CHF #Hypertrophic cardiomyopathy #Essential hypertension #Hyperlipidemia #History of CVA #History of tachybradycardia syndrome status post pacemaker #Thoracic aortic aneurysm #Pericardial effusion Outpatient digital manager Dr. Bonilla Patient was seen by cardiology: Dr. Wilmer Mcmillan Patient was diuresed with Lasix IV and has not been transition to Bumex 1 mg p.o. daily Repeat chest x-ray from 11/27/2023 shows improvement Cardiology started him on SGLT 2 inhibitor Jardiance Continue Plavix plus statin Heart failure program referral done by cardiology Cardiology spoke with the patient's daughter Lynn who is a PA-C: Daughter does not want to pursue cardiac MRI to evaluate for amyloidosis and also is not interested in an ischemic evaluation. She is okay with SPEP and UPEP SPEP and UPEP have been sent: Results pending As per cardiology note from 11/26/2023: Patient has not tolerated beta-blockers or JULI inhibitors/ARB in the past due to lightheadedness. [employer] over the weekend Dr. Mayers recommended starting patient on beta- geena and I have started him on low-dose Toprol-XL 12.5 mg daily and he is tolerating the medication well without any issues With respect to pericardial effusion, as per cardiology the small without hemodynamic significance and can be monitored over time and appears to be chronic. Respiratory therapy saw the patient and 2 point evaluation was done yesterday and again this morning and patient does not need oxygen for home use. He is saturating well on room air #Hypothyroidism TSH is 1.943 Continue levothyroxine 75 mcg p.o. daily #BPH Continue Flomax, finasteride, oxybutynin Reduce doxazosin to 1 mg p.o. nightly in light of orthostatic vital signs Outpatient follow-up PCP #Dementia #Depression Continue Lexapro 20 mg daily and perphenazine 12 mg p.o. nightly Supportive care from nursing staff #Vitamin B12 deficiency B12 level is 275 Folate is 9.36 Vitamin B12 supplementation CODE STATUS: DNR/DNI Patient is finishing up his 24-hour urine collection which will end at 10 PM tonight. Discharge plan back to [facility] tomorrow if medically stable Care plan discussed with patient, nursing staff, case management and daughter Lynn Green ([phone]) updated on the phone Admission and Anticipated Discharge Date Admission Date: November 27, 2023 Subjective Patient seen and examined Labs reviewed Vitals reviewed He was not orthostatic this morning Denies any chest pain, shortness of breath or dizziness Review of Systems Review of Systems: As per HPI Physical Exam Physical Exam: General: No acute distress Psych: Awake and alert HEENT: Anicteric sclera, moist oral mucosa CVS: Regular rate and rhythm, pacemaker noted Lungs: Bilateral air entry, no wheezing noted Abdomen: Soft, nontender, no rebound, no guarding Ext: No lower extremity edema, no calf tenderness Results & Data Results & Data Vital Signs (Past 12 Hours) Vital Signs Temp Pulse Pulse Pulse Pulse Resp Resp 11/29/23 11:45 37.1 C 79 18 11/29/23 09:46 79 87 16 11/29/23 09:27 73 11/29/23 09:26 79 11/29/23 08:33 36.5 C 81 16 11/29/23 08:11 80 11/29/23 08:00 11/29/23 02:48 36.9 C 77 18 Resp BP Pulse Ox Pulse Ox Pulse Ox O2 Del Method O2 Flow Rate 11/29/23 11:45 147/73 H 94 Room Air 11/29/23 09:46 20 92 93 11/29/23 09:27 123/65 92 Room Air 11/29/23 09:26 129/71 92 Room Air 11/29/23 08:33 130/80 95 Nasal Cannula 2 11/29/23 08:11 11/29/23 08:00 Room Air 11/29/23 02:48 132/76 92 Nasal Cannula 2 Laboratory Results Laboratory Results - last 24 hr 11/29/23 05:46 Sodium 137 Potassium 3.7 Chloride 100 Carbon Dioxide 30 Anion Gap 7 BUN 28 H Creatinine 0.89 Est Cr Clr Drug Dosing 68.4 Est GFR ( Amer) 94.3 Est GFR (Non-Af Amer) 81.3 BUN/Creatinine Ratio 31.5 H Glucose 104 H Calcium 9.1 Magnesium 2.2 PG Care Time/CCT Total # of Minutes Spent Total Time Spent with Patient: Total time spent is greater than 50% in coordination of care (as documented) at patient's floor/unit and/or counseling patient: Coding Level of Care Code 68065 SUB INP/OBS CARE 2/35MIN Diagnoses Acute hypoxic respiratory failure J96.01 Acute heart failure with mildly reduced ejection fraction (HFmrEF, 41-49%) I50.21 Elevated troponin R79.89 SSS (sick sinus syndrome) I49.5 Essential hypertension I10 Hypertension type: essential hypertension Pacemaker Z95.0 Hypertrophic cardiomyopathy I42.2 H/O: CVA (cerebrovascular accident) Z86.73 Hypothyroidism E03.9 Dementia F03.90 BPH w urinary obs/LUTS N40.1; N13.8 Depression F32.9 (5) Hypertension Hypertension type: essential hypertension Qualified Code(s): I10 - Essential (primary) hypertension
[2023-11-29] MEDS: ACETAMINOPHEN 500 MG TAB PO SCH (15:32)
[2023-11-29] MEDS: POTASSIUM CHLORIDE CRTAB 20 MEQ TABCR PO STA (15:33)
--- NOTE | 2023-11-29 16:28 | Cardiology Progress Note ---
Date of Service November 29, 2023 Assessment & Plan (1) Acute heart failure with mildly reduced ejection fraction (HFmrEF, 41-49%): (2) Elevated troponin: (3) Cardiomyopathy: (4) Pericardial effusion: (5) Aneurysm of thoracic aorta: (6) SSS (sick sinus syndrome): (7) Pacemaker: Plan ASSESSMENT/PLAN: 1. Acute heart failure with mildly reduced EF: He appears euvolemic today. No evidence of peripheral edema. No dyspnea with ambulation. It would seem reasonable to continue his current dose of diuretic in the outpatient setting. 2. Cardiomyopathy: LV systolic function has declined. Severe LVH also noted. Workup for amyloidosis underway. Currently on metoprolol succinate and Jardiance. Patient has a history of orthostatic hypotension on JULI/ARB. 3. Thoracic aortic aneurysm: Does not meet criteria for surgical intervention and based on discussion today, invasive measures are not wanted. On beta- blockade. Avoid fluoroquinolones. 4. Pericardial effusion: Small without hemodynamic significance. 5. Elevated troponin: Likely due to demand ischemia in the setting of hypoxia and heart failure exacerbation. His daughter is not interested in pursuing ischemic evaluation, which seems reasonable. 6. Tachybradycardia syndrome s/p dual-chamber pacemaker 7. Disposition: Scheduled for discharge tomorrow. Admission and Anticipated Discharge Date Admission Date: November 27, 2023 Subjective This afternoon the patient claimed to be feeling well. He states that his breathing is about the same as yesterday. However, he did report ambulating down the reagan with physical therapy earlier today. He used a walker but felt good. He did not report any breathing difficulty with ambulation. No dizziness or lightheadedness either. Review of Systems Review of Systems: Per HPI Physical Exam Physical Exam: Gen.: No acute distress. Alert. Oriented x 3. HEENT: Anicteric sclera. Cardiac: Regular. Normal S1-S2. No murmurs, rubs, or gallops. Pulmonary: Normal respiratory effort. Good air movement. No rales. Abdomen: Soft. Nondistended Extremities: No edema Results & Data Vital Signs (Past 12 Hours) Vital Signs Temp Pulse Pulse Pulse Pulse Resp Resp 11/29/23 11:45 37.1 C 79 18 11/29/23 09:46 79 87 16 11/29/23 09:27 73 11/29/23 09:26 79 11/29/23 08:33 36.5 C 81 16 11/29/23 08:11 80 11/29/23 08:00 Resp BP Pulse Ox Pulse Ox Pulse Ox O2 Del Method O2 Flow Rate 11/29/23 11:45 147/73 H 94 Room Air 11/29/23 09:46 20 92 93 11/29/23 09:27 123/65 92 Room Air 11/29/23 09:26 129/71 92 Room Air 11/29/23 08:33 130/80 95 Nasal Cannula 2 11/29/23 08:11 11/29/23 08:00 Room Air Laboratory Results Abnormal Lab Results 11/29/23 05:46 Sodium 137 Potassium 3.7 Chloride 100 Carbon Dioxide 30 Anion Gap 7 BUN 28 H Creatinine 0.89 Est Cr Clr Drug Dosing 68.4 Est GFR ( Amer) 94.3 Est GFR (Non-Af Amer) 81.3 BUN/Creatinine Ratio 31.5 H Glucose 104 H Calcium 9.1 Magnesium 2.2 PG Care Time/CCT Total # of Minutes Spent Total Time Spent with Patient: Total time spent is greater than 50% in coordination of care (as documented) at patient's floor/unit and/or counseling patient: Coding Level of Care Code 43831 SUB INP/OBS CARE 2/35MIN Diagnoses Acute heart failure with mildly reduced ejection fraction (HFmrEF, 41-49%) I50.21 Elevated troponin R79.89 Cardiomyopathy I42.9 Pericardial effusion I31.39 Aneurysm of thoracic aorta I71.20 SSS (sick sinus syndrome) I49.5 Pacemaker Z95.0
[2023-11-29] MEDS: LIDOCAINE 5% 1 PATCH TD STA (20:16)
[2023-11-29] MEDS: POLYETHYLENE (MIRALAX) 17 GM PACK PO PRN (20:31)
[2023-11-30 07:48] VITALS: RESP 16; TEMP 98.2
[2023-11-30 08:17] LABS: Creatinine Ur 25 mg/dL (20-320); Protein, Urine Random <4 mg/dL (5-25); Ur Albumin % 100 %; Ur Alpha-1-globulin % 0 %; Ur Alpha-2-globulin % 0 %; Ur Beta Globulin % 0 %; Ur Gamma Globulin % 0 %; Ur Protein/Creat Ratio mg/g NOTE mg/g creat (25-148); Urine Abnormal Protein Band 1 DNR mg/dL (NONE DETECTED); Urine Abnormal Protein Band 2 DNR mg/dL (NONE DETECTED); Urine Abnormal Protein Band 3 DNR mg/dL (NONE DETECTED); Urine Protein/Creatinine Ratio NOTE (0.025-0.148)
[2023-11-30 08:37] LABS: Free Kappa 19.1 mg/L (3.3-19.4); Free Kappa/Lambda Ratio 1.17 (0.26-1.65); Free Lambda 16.3 mg/L (5.7-26.3)
[2023-11-30 12:34] VITALS: PULSE 78; O2SAT 93
--- NOTE | 2023-11-30 12:51 | Discharge Summary ---
Discharge Summary Date of Service November 30, 2023 Principal Dx & Hospital Course #1 = Principal Diagnosis (1) Acute hypoxic respiratory failure: (2) Acute heart failure with mildly reduced ejection fraction (HFmrEF, 41-49%): (3) Elevated troponin: (4) SSS (sick sinus syndrome): (5) Hypertension: (6) Pacemaker: (7) Hypertrophic cardiomyopathy: (8) H/O: CVA (cerebrovascular accident): (9) Hypothyroidism: (10) Dementia: (11) BPH w urinary obs/LUTS: (12) Depression: Plan 78-year-old male with past medical history of CVA, history of tachybradycardia syndrome status post pacemaker, BPH, hypothyroidism, dementia, depression who lives at the [facility] was brought in by ambulance after he was found to be complaining of shortness of breath and hypoxic saturating in the 80s. #Acute hypoxic respiratory failure likely secondary to CHF #Acute systolic congestive heart failure with mildly reduced ejection fraction, EF of 45 to 50% #Elevated troponin: Likely type II [place] in setting of demand ischemia from CHF #Hypertrophic cardiomyopathy #Essential hypertension #Hyperlipidemia #History of CVA #History of tachybradycardia syndrome status post pacemaker #Thoracic aortic aneurysm #Pericardial effusion Outpatient house fellow Dr. Bonilla Patient was seen by cardiology: Dr. Wilmer Mcmillan Patient was diuresed with Lasix IV and has not been transition to Bumex 1 mg p.o. daily Repeat chest x-ray from 11/27/2023 shows improvement Cardiology started him on SGLT 2 inhibitor Jardiance Continue Plavix plus statin Heart failure program referral done by cardiology Cardiology spoke with the patient's daughter Lynn who is a PA-C: Daughter does not want to pursue cardiac MRI to evaluate for amyloidosis and also is not interested in an ischemic evaluation. She is okay with SPEP and UPEP SPEP and UPEP have been sent: Results pending As per cardiology note from 11/26/2023: Patient has not tolerated beta-blockers or JULI inhibitors/ARB in the past due to lightheadedness. [employer] over the weekend Dr. Mayers recommended starting patient on beta- geena and I have started him on low-dose Toprol-XL 12.5 mg daily and he is tolerating the medication well without any issues With respect to pericardial effusion, as per cardiology the small without hemodynamic significance and can be monitored over time and appears to be chronic. Respiratory therapy saw the patient and 2 point evaluation was done yesterday and patient does not need oxygen for home use. He is saturating well on room air Patient will follow-up with cardiology as outpatient on discharge #Hypothyroidism TSH is 1.943 Continue levothyroxine 75 mcg p.o. daily #BPH Continue Flomax, finasteride, oxybutynin Reduce doxazosin to 1 mg p.o. nightly in light of orthostatic vital signs Outpatient follow-up PCP #Dementia #Depression Continue Lexapro 20 mg daily and perphenazine 12 mg p.o. nightly Supportive care from nursing staff #Vitamin B12 deficiency B12 level is 275 Folate is 9.36 Vitamin B12 supplementation CODE STATUS: DNR/DNI Patient seen and examined today. He is stable for discharge to [facility] I have gone over the discharge care plan, medications and follow-up with patient and daughter Lynn Green ([phone]) who is at the bedside and answered all the questions Daughter aware that results for SPEP and UPEP are still pending and to follow-up with cardiology or PCP as outpatient to get the results This discharge took greater than 30 minutes to coordinate Discharge Exam General: No acute distress Psych: Awake and alert HEENT: Anicteric sclera, moist oral mucosa CVS: Regular rate and rhythm, pacemaker noted Lungs: Bilateral air entry, no wheezing noted Abdomen: Soft, nontender, no rebound, no guarding Ext: No lower extremity edema, no calf tenderness Discharge Plan Discharge Items Patient Disposition: Personal Shelter Reason For Visit: SOB Discharge Diagnosis: #Acute systolic congestive heart failure with mildly reduced ejection fraction, EF of 45 to 50% #Elevated troponin: Likely type II [place] in setting of demand ischemia from CHF #Hypertrophic cardiomyopathy #Essential hypertension #Hyperlipidemia #History of CVA #History of tachybradycardia syndrome status post pacemaker #Thoracic aortic aneurysm #Pericardial effusion #Hypothyroidism #BPH #Dementia #Depression #Vitamin B12 deficiency Condition on Discharge: Good Activity: As commented below Activity Comment: TOLERATED WITH ASSISTANCE Non-emergency contact: Primary Care Provider Call non-emergency contact if: you have any medication questions, your symptoms worsen, your pain is not controlled and you have a fever Follow-up/Referrals: Myriam Sorensen PA-C [Physician Manager Clinical Research] - 10/07/24 2:00 pm (Congestive Heart Failure Program Appointment Information Early follow up is essential to managing your heart failure. An appointment has been scheduled for you with the [facility] Heart Failure Program within 7 days of discharge. Anticipate this visit to be 30-60 minutes long. Please expect a tower hoist operator phone call from one of our nurses approximately 48 hours from discharge. They will also be placing an order for lab work to be completed 1-2 days prior to your heart failure follow up appointment. Please be sure to have this done so we can go over the results when you come in. Office Location The cardiology office building is located in front of the hospital at [address] Bring the following with you to your follow-up doctor appointments: Please bring your daily weight log any discharge paperwork all of your medication bottles with you to this visit. ) Sohail Nick, DO [Primary Care Provider] - Diet: Heart Healthy Addtl Attending Provider Instructions: DISCHARGE INSTRUCTION TO PATIENT/FAMILY: Follow-up with your primary care provider within 1 week regarding: Posthospital discharge, medication review, medication refills and follow-up on all your medical problems Please take all your discharge medications, discharge information and discharge instructions to all your doctors appointments. Avoid all NSAIDs including ibuprofen, Motrin, Advil, Aleve, naproxen, meloxicam, Toradol, diclofenac Follow-up with cardiology as an outpatient regarding heart failure and also results of tests which are pending: SPEP and UPEP Labs through PCP in 1 week: CBC, CMP, MG, VITAMIN D Pending Studies at Discharge: Yes Studies:: SPEP and UPEP: Follow-up with cardiology as outpatient for results Stand-Alone Forms: My [facility] [employer], Smoking Cessation Skilled Items Patient informed of condition?: Yes DNR: Yes Discharge Level of Care: Other Communicable Disease: No Discharge Prognosis: Stable Lines: None Urinary Catheter: No Medications and DC Order Prescriptions: New doxazosin 1 mg Tablet 1 mg PO HS Qty: 30 0RF metoprolol succinate 25 mg Tablet Extended Release 24 Hr 12.5 mg PO QAM Qty: 30 0RF magnesium oxide 400 mg (241.3 mg magnesium) Tablet 400 mg PO DAILY Qty: 7 0RF cyanocobalamin (vitamin B-12) 500 mcg Tablet 500 mcg PO QAM Qty: 30 0RF bumetanide 1 mg Tablet 1 mg PO QAM Qty: 30 0RF Jardiance 10 mg Tablet 10 mg PO DAILY Qty: 30 0RF Continued atorvastatin 40 mg tablet 40 mg PO HS Qty: 90 3RF clopidogrel 75 mg tablet 75 mg PO QAM Qty: 90 3RF finasteride 5 mg tablet 5 mg PO HS Qty: 90 3RF levothyroxine 75 mcg tablet 75 mcg PO QAM Qty: 90 3RF oxybutynin chloride 5 mg tablet 5 mg PO HS 90 Days Qty: 90 2RF tamsulosin 0.4 mg capsule 0.4 mg PO HS Qty: 90 3RF omeprazole 40 mg capsule,delayed release(DR/EC) 40 mg PO DAILY Qty: 90 3RF perphenazine 4 mg Tablet 12 mg PO HS Rx Instructions: 3 TABLET DOSE escitalopram oxalate 20 mg tablet 20 mg PO QAM cholecalciferol (vitamin D3) [Vitamin D3] 25 mcg (1,000 unit) Tablet 25 mcg PO QAM calcium citrate-vitamin D3 [Calcium Citrate + D] 315 mg-5 mcg (200 unit) Tablet 2 tab PO DAILY Rx Instructions: TAKE WITH FOOD acetaminophen [Tylenol Arthritis] 650 mg Tablet Extended Release 650 mg PO TID PreserVision AREDS-2 250-90-40-1 mg Capsule 1 tab PO BID Discontinued cephalexin 500 mg capsule 500 mg PO TID 5 Days Qty: 15 0RF nystatin 100,000 unit/mL suspension See Rx Instructions .ROUTE .COMPLEX Rx Instructions: SWISH & SPIT 5 ML 4 TIMES A DAILY NEEDED X10 DAYS. MUST COMPLETE FULL 10 DAYS TREATMENT EACH TIME. DISCARD ANY REMAINING MEDICATION loperamide [Imodium A-D] 2 mg Capsule 2 mg PO QID PRN (Reason: Diarrhea) doxazosin 8 mg tablet 4 mg PO HS Discharge Orders: Discharge Order- CHF (Routine); Ordered 11/30/23 Ordered By: Adonay Ortiz Admission Data Admit Date/Time: 11/27/23 10:22 Attending Provider: Adonay Ortiz Admit Provider: Leonarda Osullivan Primary Care Provider: Sohail Nick Other Providers: Enio Gutierrez; Kelvin Mcmillan; Myriam Sorensen Hospital Stay Data Consultations 11/26/23 01:17 ED Decision to Admit Stat 11/26/23 10:47 Consult Cardiology Routine 11/26/23 15:46 [facility] Referral Routine Procedures Performed Laboratory Results - last 48 hr 11/26/23 11/27/23 11/29/23 20:45 06:17 05:46 Sodium 137 Potassium 3.7 Chloride 100 Carbon Dioxide 30 Anion Gap 7 BUN 28 H Creatinine 0.89 Est Cr Clr Drug Dosing 68.4 Est GFR ( Amer) 94.3 Est GFR (Non-Af Amer) 81.3 BUN/Creatinine Ratio 31.5 H Glucose 104 H Calcium 9.1 Magnesium 2.2 U Random Total Protein <4 L Ur Creatinine mg/dL 25 Protein/Creatinin Ratio NOTE Urine Albumin (%) 100 U Lqgsc-2-Ezfxpigw (%) 0 U Krcml-7-Dyhneiyk (%) 0 U Beta Globulin (%) 0 U Gamma Globulin (%) 0 U Abnormal Prot Band 1 DNR U Abnormal Prot Band 2 DNR U Abnormal Prot Band 3 DNR Urine PEP Interpret SEE NOTE Serum Immunofixation SEE NOTE [place] LC, Quant 19.1 Free [place] LC, Quant 16.3 [place]/Lambda Ratio 1.17 Diagnostic Imagining Performed Chest X-Ray 11/26/23 00:04 SINGLE VIEW CHEST CLINICAL HISTORY: Dyspnea FINDINGS: 2 AP, portable, upright chest radiographs are compared to study dated 02/05/2023 and correlated with chest CT dated 11/05/2020. A 2-lead cardiac pacemaker is unchanged in position and partially obscures the left mid chest. The heart is enlarged noting atherosclerotic calcification of the thoracic aorta. The pulmonary vasculature is noncongested. Chronic interstitial thickening is similar to previous. There is airspace consolidation of the left lung base. A small left pleural effusion is suspected. No pneumothorax is seen. The bony thorax is grossly intact. A left shoulder arthroplasty is in place. Arthritic change is seen in the right shoulder. IMPRESSION: 1. Cardiomegaly and cardiac pacemaker without radiographic evidence of congestive failure. 2. Left basilar consolidation. This could represent atelectasis versus pneumonia/aspiration pneumonitis and clinical correlation will be required. Radiographic follow-up to resolution is recommended. 3. Suspect a small left pleural effusion ACT 112: Negative or not required by law. Electronically signed by: Lee Camacho M.D. 11/26/2023 7:47 AM Chest X-Ray 11/27/23 10:25 [facility] TWO VIEW CHEST CLINICAL HISTORY: Pleural effusion. FINDINGS: AP and lateral chest radiographs are compared to study dated 11/26/2023. A 2-lead cardiac pacemaker is in place and partially obscures the left upper chest. The heart is enlarged. The pulmonary vasculature is not congested. Nonspecific interstitial thickening is likely chronic. There are small pleural effusions with dependent consolidation. There is no pneumothorax. The skeletal structures are osteopenic. The bony thorax appears intact. A left shoulder arthroplasty is in place. Advanced arthritic changes noted in the right shoulder. IMPRESSION: 1. Cardiomegaly and cardiac pacemaker without radiographic evidence of congestive failure. 2. Small pleural effusions with dependent consolidation. This may represent atelectasis and clinical correlation will be required. ACT 112: Negative or not required by law. Electronically signed by: Lee Camacho M.D. 11/27/2023 11:27 AM Pending Results Patient Have Any Pending Studies at Discharge: Yes Discharge Instructions Given to Patient (Per Discharging Provider) DISCHARGE INSTRUCTION TO PATIENT/FAMILY: Follow-up with your primary care provider within 1 week regarding: Posthospital discharge, medication review, medication refills and follow-up on all your medical problems Please take all your discharge medications, discharge information and discharge instructions to all your doctors appointments. Avoid all NSAIDs including ibuprofen, Motrin, Advil, Aleve, naproxen, meloxicam, Toradol, diclofenac Follow-up with cardiology as an outpatient regarding heart failure and also results of tests which are pending: SPEP and UPEP Labs through PCP in 1 week: CBC, CMP, MG, VITAMIN D Total Time Total Time Spent Total Time Spent (In Minutes): 35 minutes Total Time Includes: Examination of the Patient, Discharge Planning, Medication Reconciliation and Other Coding Level of Care Code 46058 INP/OBS DISCH >30 MIN Diagnoses Acute hypoxic respiratory failure J96.01 Acute heart failure with mildly reduced ejection fraction (HFmrEF, 41-49%) I50.21 Elevated troponin R79.89 SSS (sick sinus syndrome) I49.5 Essential hypertension I10 Hypertension type: essential hypertension Pacemaker Z95.0 Hypertrophic cardiomyopathy I42.2 H/O: CVA (cerebrovascular accident) Z86.73 Hypothyroidism E03.9 Dementia F03.90 BPH w urinary obs/LUTS N40.1; N13.8 Depression F32.9
[2023-11-30 12:56] VITALS: BP 125/80
== END 2023-11-30 14:09 | disposition home or self-care (01) | DRG 280 ==
LOC: ED 23:35 → EDINP 23:35 → SUATTDRO 11-26 02:11 → 2N 11-26 03:14